=== PATIENT | male | born 1940 | race Caucasian/White ===

== ENCOUNTER → 2016-11-30 | Outpatient (CLI) | payer BC ==
[~2016-11-30] MED LIST: GLC500 PO; GLIM2TAB2 PO; LEVO50TA6 PO
[2016-11-30 12:27] LABS: HEMATOCRIT 38.9 % (42-52); MEAN CELL VOLUME 92.6 fL (80-100); MEAN CORPUSCULAR HEMOGLOBIN 31.7 pg (25-34); MEAN CORPUSCULAR HGB CONC 34.2 g/dl (32-36); MEAN PLATELET VOLUME 9.6 fL (7.4-10.4); PLATELET COUNT 227 K/uL (130-400); WHITE BLOOD COUNT 5.63 K/uL (4.8-10.8)
[2016-11-30 12:44] LABS: ALT/SGPT 46 U/L (12-78); BLOOD UREA NITROGEN 37 mg/dl (7-18); BUN/CREATININE RATIO 23.3 (10-20); CALCIUM 8.8 mg/dl (8.5-10.1); CARBON DIOXIDE 22 mmol/L (21-32); CHLORIDE 110 mmol/L (98-107); CHOLESTEROL 181 mg/dl (0-200); GLUCOSE 142 mg/dl (70-99); POTASSIUM 4.4 mmol/L (3.5-5.1); SODIUM 142 mmol/L (136-145)
[2016-11-30 12:54] LABS: ALB/GLOB RATIO 1.1 (0.9-2); ALKALINE PHOSPHATASE 87 U/L (45-117); AST/SGOT 28 U/L (15-37); CHOLESTEROL/HDL RATIO 3.1; HDL CHOLESTEROL 58 mg/dl; LDL CHOLESTEROL CALCULATED 99 mg/dl; TRIGLYCERIDES 122 mg/dl (0-150); VERY LOW DENSITY LIPOPROT CALC 24 mg/dl
[2016-11-30 13:50] LABS: ESTIMATED AVERAGE GLUCOSE 186 mg/dl; HA1C FLAG Normal (Normal)
== END | disposition home or self-care (01) ==
LOC: C.LABBFT 08:03
PROVIDERS: ATTEND Internal Medicine
DX: E03.9 Hypothyroidism, unspecified (principal); E11.65 Type 2 diabetes mellitus with hyperglycemia

== ENCOUNTER → 2017-01-24 | Outpatient (CLI) | payer BC | END | disposition home or self-care (01) | LOC: C.LABBFT 07:39 | PROVIDERS: ATTEND Urology | DX: C61 Malignant neoplasm of prostate (principal); E11.65 Type 2 diabetes mellitus with hyperglycemia ==

== ENCOUNTER → 2017-06-12 | Outpatient (CLI) | payer BC ==
[2017-06-12 12:14] LABS: BASO % 0.3 %; BASO ABS # 0.02 K/uL (0-0.2); COMPLETE YES; EOS % 2.3 %; HEMATOCRIT 39.6 % (42-52); IG% 0.3 %; LYMPH % 18.3 %; LYMPH ABS # 1.11 K/uL (1.2-3.4); MEAN CELL VOLUME 93.4 fL (80-100); MEAN CORPUSCULAR HEMOGLOBIN 31.4 pg (25-34); MEAN CORPUSCULAR HGB CONC 33.6 g/dl (32-36); MEAN PLATELET VOLUME 9.4 fL (7.4-10.4); MONO % 8.9 %; NEUT % 69.9 %; PLATELET COUNT 217 K/uL (130-400); RED BLOOD COUNT 4.24 M/uL (4.7-6.1); WHITE BLOOD COUNT 6.07 K/uL (4.8-10.8)
[2017-06-12 12:26] LABS: ALT/SGPT 31 U/L (12-78); AST/SGOT 21 U/L (15-37); BLOOD UREA NITROGEN 21 mg/dl (7-18); BUN/CREATININE RATIO 15.9 (10-20); CALCIUM 9.1 mg/dl (8.5-10.1); CARBON DIOXIDE 27 mmol/L (21-32); CHLORIDE 108 mmol/L (98-107); CHOLESTEROL 170 mg/dl (0-200); ESTIMATED AVERAGE GLUCOSE 177 mg/dl; GLUCOSE 128 mg/dl (70-99); HA1C FLAG Normal (Normal); POTASSIUM 4.7 mmol/L (3.5-5.1); SODIUM 140 mmol/L (136-145)
[2017-06-12 12:37] LABS: ALKALINE PHOSPHATASE 79 U/L (45-117); HDL CHOLESTEROL 57 mg/dl; LDL CHOLESTEROL CALCULATED 81 mg/dl; TRIGLYCERIDES 162 mg/dl (0-150); VERY LOW DENSITY LIPOPROT CALC 32 mg/dl
== END | disposition home or self-care (01) ==
LOC: C.LABBFT 08:12
PROVIDERS: ATTEND Internal Medicine
DX: E11.65 Type 2 diabetes mellitus with hyperglycemia (principal); E03.9 Hypothyroidism, unspecified

== ENCOUNTER → 2017-12-11 | Outpatient (CLI) | payer BC ==
[2017-12-11 12:33] LABS: BASO % 0.3 %; BASO ABS # 0.02 K/uL (0-0.2); EOS % 2.5 %; EOS ABS # 0.16 K/uL (0-0.5); HEMOGLOBIN 13.8 g/dL (14.0-18.0); IG# 0.02 K/uL (0.00-0.02); MEAN CELL VOLUME 94.9 fL (80-100); MEAN CORPUSCULAR HEMOGLOBIN 31.9 pg (25-34); MEAN CORPUSCULAR HGB CONC 33.7 g/dl (32-36); MEAN PLATELET VOLUME 9.6 fL (7.4-10.4); MONO % 8.1 %; MONO ABS # 0.52 K/uL (0.11-0.59); NEUT % 74.8 %; NEUT ABS # 4.83 K/uL (1.4-6.5); PLATELET COUNT 217 K/uL (130-400); RED CELL DISTRIBUTION WIDTH CV 12.4 % (11.5-14.5); RED CELL DISTRIBUTION WIDTH SD 42.8 fL (36.4-46.3); WHITE BLOOD COUNT 6.45 K/uL (4.8-10.8)
[2017-12-11 13:32] LABS: HEMOGLOBIN A1C 7.9 % (4.5-5.6)
[2017-12-11 13:51] LABS: ALBUMIN 3.9 gm/dl (3.4-5.0); ALKALINE PHOSPHATASE 87 U/L (45-117); ALT/SGPT 36 U/L (12-78); AST/SGOT 22 U/L (15-37); BLOOD UREA NITROGEN 21 mg/dl (7-18); CALCIUM 9.4 mg/dl (8.5-10.1); CARBON DIOXIDE 25 mmol/L (21-32); CREATININE 1.43 mg/dl (0.60-1.40); GLUCOSE 153 mg/dl (70-99); POTASSIUM 4.9 mmol/L (3.5-5.1); SODIUM 138 mmol/L (136-145); TOTAL PROTEIN 7.5 gm/dl (6.4-8.2)
== END | disposition home or self-care (01) ==
LOC: C.LABBFT 08:13
PROVIDERS: ATTEND Internal Medicine
DX: E03.9 Hypothyroidism, unspecified (principal); E11.65 Type 2 diabetes mellitus with hyperglycemia; D64.9 Anemia, unspecified

== ENCOUNTER → 2018-01-30 | Outpatient (CLI) | payer BC | END | disposition home or self-care (01) | LOC: C.LABBFT 12:49 | PROVIDERS: ATTEND Urology | DX: C61 Malignant neoplasm of prostate (principal) ==

== ENCOUNTER → 2018-06-13 | Outpatient (CLI) | payer BC ==
[2018-06-13 12:46] LABS: BASO % 0.3 %; BASO ABS # 0.02 K/uL (0-0.2); EOS % 3.6 %; EOS ABS # 0.22 K/uL (0-0.5); HEMATOCRIT 38.6 % (42-52); HEMOGLOBIN 13.1 g/dL (14.0-18.0); IG# 0.01 K/uL (0.00-0.02); LYMPH % 13.9 %; LYMPH ABS # 0.85 K/uL (1.2-3.4); MEAN CELL VOLUME 93.9 fL (80-100); MEAN CORPUSCULAR HEMOGLOBIN 31.9 pg (25-34); MEAN CORPUSCULAR HGB CONC 33.9 g/dl (32-36); MEAN PLATELET VOLUME 9.5 fL (7.4-10.4); MONO % 9.2 %; MONO ABS # 0.56 K/uL (0.11-0.59); NEUT % 72.8 %; NEUT ABS # 4.44 K/uL (1.4-6.5); PLATELET COUNT 212 K/uL (130-400); RED CELL DISTRIBUTION WIDTH CV 12.5 % (11.5-14.5); RED CELL DISTRIBUTION WIDTH SD 42.6 fL (36.4-46.3)
[2018-06-13 13:02] LABS: HEMOGLOBIN A1C 7.8 % (4.5-5.6)
[2018-06-13 13:26] LABS: ALBUMIN 3.8 gm/dl (3.4-5.0); ALKALINE PHOSPHATASE 81 U/L (45-117); ALT/SGPT 31 U/L (12-78); AST/SGOT 25 U/L (15-37); BLOOD UREA NITROGEN 20 mg/dl (7-18); CALCIUM 9.1 mg/dl (8.5-10.1); CARBON DIOXIDE 26 mmol/L (21-32); CHOLESTEROL 178 mg/dl (0-200); CREATININE 1.43 mg/dl (0.60-1.40); GLUCOSE 124 mg/dl (70-99); LDL CHOLESTEROL CALCULATED 96 mg/dl; POTASSIUM 4.6 mmol/L (3.5-5.1); SODIUM 139 mmol/L (136-145); TOTAL PROTEIN 7.3 gm/dl (6.4-8.2)
== END | disposition home or self-care (01) ==
LOC: C.LABBFT 08:09
PROVIDERS: ATTEND Internal Medicine
DX: E11.65 Type 2 diabetes mellitus with hyperglycemia (principal)

== ENCOUNTER 2018-12-29 12:37 | Inpatient (IN) ==
[2018-12-29] MEDS ORDERED: SODIUM CHLORIDE 0.9% 1000ML 500 ML IV ONE (12:53)
[2018-12-29 13:09] LABS: Basophils # (auto) 0.02 K/uL (0-0.2); Basophils % (auto) 0.2 %; Eosinophils # (auto) 0.08 K/uL (0-0.5); Hematocrit (blood only) 36.9 % (42-52); Hemoglobin 12.2 g/dL (14.0-18.0); Immature Granulocytes # (auto) 0.02 K/uL (0.00-0.02); Immature Granulocytes % (auto) 0.2 %; Lymphocytes # (auto) 0.99 K/uL (1.2-3.4); Lymphocytes % (auto) 12.1 %; Mean Corpuscular Hgb Conc 33.1 g/dL (32-36); Mean Corpuscular Volume 95.6 fL (80-100); Mean Platelet Volume 8.8 fL (7.4-10.4); Monocytes # (auto) 0.63 K/uL (0.11-0.59); Monocytes % (auto) 7.7 %; Neutrophils # (auto) 6.44 K/uL (1.4-6.5); Neutrophils % (auto) 78.8 %; Platelet Count 284 K/uL (130-400); RDW Coefficient of Variation 12.3 % (11.5-14.5); RDW Standard Deviation 42.6 fL (36.4-46.3); Red Blood Count 3.86 M/uL (4.7-6.1); White Blood Count 8.18 K/uL (4.8-10.8)
[2018-12-29 13:16] LABS: Appearance Urine Clear (Clear); Bilirubin Urine Negative (Negative); Blood Urine 1+ (Negative); Color Urine Yellow; Glucose Urine UA Negative (Negative); Ketones Urine Negative (Negative); Leukocyte Esterase Urine Negative (Negative); Nitrite Urine Negative (Negative); Protein Urine Negative (Negative); RBC Urine Automated 0-4 /hpf (0-4); Specific Gravity Urine 1.021 (1.000-1.030); Urobilinogen Urine Negative (Negative)
--- NOTE | 2018-12-29 13:22 | CT Scan Report ---
CT abd pelvis wo con CT DOSE: 805.58 mGycm HISTORY: Flank pain L flank pain TECHNIQUE: Multiaxial CT images of the abdomen and pelvis were performed without contrast. A dose lo wering technique was utilized adhering to the principles of ALARA. COMPARISON STUDY: 01/31/2013 FINDINGS: Lung bases are considered clear. The nodular density left lung base is unchanged. There is a small calcified granuloma also unchanged at the right base. Liver spleen and pancreas appear unremarkable. Bilateral renal nodules and cysts are stable. There is mild left hydronephrosis. There is a 3.5 mm ob structing proximal left ureteral calculus. Bowel pattern is nonobstructive. The appendix is normal. B ladder is midline. There is a focal bowel containing left single hernia unchanged in the prior study. This is a nonobstructive finding. IMPRESSION: 1. 3.5 mm obstructing calculus proximal left ureter. 2. Mild left hydronephrosis. 3. Multiple bilateral renal cysts and nodules are considered stable from the prior study. 4. Unchanged bowel containing left inguinal hernia. This is nonobstructing. 5. Unchanged left basilar nodule. The above report was generated using voice recognition software. It may contain grammatical, syntax or spelling errors. Electronically signed by: Silvestre Reyes M.D. 12/29/2018 1:20 PM
[2018-12-29 13:26] LABS: Creatinine Clr Calc Pharmacy 19.9 ml/min; Est GFR (Non-African American) 18.1; Potassium 4.7 mmol/L (3.5-5.1)
[2018-12-29] MEDS ORDERED: KETOROLAC TROMETHAMINE 15 MG/ML VIAL IV STA (13:41)
[2018-12-29] MEDS ORDERED: SODIUM CHLORIDE 0.9% 1000ML 1,000 ML IV SCH (13:45)
--- NOTE | 2018-12-29 13:48 | History & Physical Report ---
Date of Service December 29, 2018 Assessment & Plan (1) Kidney stone: (2) KEE (acute kidney injury): - Admit to med surg - Continue aggressive hydration with NSS 125 ml/hr - Start on flomax, pain management with IV morphine prn - Urology consulted, Dr. Callejas - ER discussed with their team who recommend conservative treatment for now. No acute needs for stent as pt is afebrile, no WBC. No need for antibiotic therapy at this time. Follow urine culture. - Mild hydronephrosis as per CT. - Cr. acutely bumped, follow with am PRP (3) DM II (diabetes mellitus, type II), controlled: - Continue januvia. Holding metformin and glimipiride. - ISS with accuchecks ACHS - Last A1c= 7.9 on 12/20/18 - HH/diabetic diet (4) History of prostate cancer: - Hx of such 10 years ago, stable (5) Hypothyroidism: - Continue levothyroxine 100 mg daily (6) HLD (hyperlipidemia): - Not on statin therapy. No need to check lipids at this time. (7) Anemia: - Hx of such, Hgb and Hct 12.2/36.9 respectively. (8) Hydronephrosis: (9) DVT prophylaxis: teds, scds, no chemical prophylaxis at this time due to hematuria 2 days ago and possible need for stent placement. History of Present Illness Chief Complaint: L flank pain Primary Care Provider: Waqar Akins MD This is a 78 yo M with PMHX of DM II on oral agents, HLD, hx of prostate cancer 10 years ago, osteoporosis and nephrolithiasis who presents with acute onset of left sided flank pain x 2 days. Pt notes about 2 night ago he developed sharp constant pain, nausea with dry heaves, and passed a small kidney stone (which he brought with him into the ER.) Since then he still has had pain unrelieved with tylenol at home. His urine has been clear, no hematuria. Pt denies fever, chills or sweats. He reports hx of requiring surgery and lithotripsy for nephrolithiasis previously. Pt received pain medication in the ER and reports complete relief of pain currently. Cr. is acutely bumped at 3.16. CT scan demonstrates a 3.5 mm obstructing calculus proximal left ureter and mild left hydronephrosis. Allergies Allergy/AdvReac Type Severity Reaction Status Date / Time No Known Allergies Allergy Unknown Verified 12/29/18 13:55 Home Medications Home Medications Medication Instructions Recorded Confirmed Type glimepiride 4 mg PO BID 12/29/18 12/29/18 History levothyroxine 100 mg PO DAILY 12/29/18 12/29/18 History metformin 1,000 mg PO HS 12/29/18 12/29/18 History metformin 1,000 mg PO QAM 12/29/18 12/29/18 History metformin 500 mg PO QDL 12/29/18 12/29/18 History sitagliptin [Januvia] 100 mg PO DAILY 12/29/18 12/29/18 History Past Med/Surg History Medical History Hydronephrosis Anemia Osteopenia HLD (hyperlipidemia) Hypothyroidism History of prostate cancer DM II (diabetes mellitus, type II), controlled KEE (acute kidney injury) (Acute) Kidney stone (Acute) Kidney stones (Acute) Surgical History H/O radical retropubic prostatectomy Family History Other CHF (congestive heart failure) Cardiac pacemaker in situ DM II (diabetes mellitus, type II), controlled Nephrolithiasis No pertinent family history Prostate cancer Social History Preferred Language: Yakut Communication Ability: Effective Senior Administrative Support Required: No Beliefs That Will Affect Care: None Current Living Situation: Spouse Other Information That Helps Us Care for You: No Feels Safe at Home: Yes Safety Concerns: Feels Safe At This Time Smoking Status: Never smoker Hx Alcohol Use: No Hx Substance Use: No Review of Systems Constitutional: No fever, sweats or chills Eyes: No diplopia, no worsening or blurred vision ENT: normal hearing, no trouble swallowing Respiratory: No cough, sputum, dyspnea at rest or on exertion Cardiovascular: No chest pain, tightness or palpitations Abdomen: No pain, nausea, vomiting, diarrhea or constipation : As per HPI. Musculoskeletal: No joint pain, calf pain, swelling Neurologic: No weakness, numbness/tingling, or balance problems Psychiatric: No anxiety or depression Skin: No rash or itch Physical Exam Vital Signs (Past 24 Hours): Last Vital Signs Temp 36.4 C L 12/29/18 12:39 Pulse 94 H 12/29/18 12:39 Resp 16 12/29/18 12:39 BP 136/89 12/29/18 12:39 Pulse Ox 97 12/29/18 12:39 Physical Exam: General: awake, alert, no apparent distress Head: Normocephalic, atraumatic ENT: PERRL, EOMI, no pharyngeal exudate, mucous membranes moist Chest: Clear to auscultation, on room air, no adventitious breath sounds Cardiac: Regular rate and rhythm, no murmur, no JVD, normal peripheral pulses, good capillary refill Abdominal: NABS x 4 quadrants, soft, nontender to palpation, no CVA tenderness, no rebound, guarding or tenderness Extremities: Normal inspection, no peripheral edema or erythema, calfs nontender to palpation Psych: Normal mood and affect Neuro: AAO x 3, strength intact bilaterally and related 5/5, no motor deficits, speech is clear, no peripheral sensory deficits Results & Data Diagnostic Findings CT abd pelvis wo con CT DOSE: 805.58 mGycm HISTORY: Flank pain L flank pain TECHNIQUE: Multiaxial CT images of the abdomen and pelvis were performed without contrast. A dose lowering technique was utilized adhering to the principles of ALARA. COMPARISON STUDY: 01/31/2013 FINDINGS: Lung bases are considered clear. The nodular density left lung base is unchanged. There is a small calcified granuloma also unchanged at the right base. Liver spleen and pancreas appear unremarkable. Bilateral renal nodules and cysts are stable. There is mild left hydronephrosis. There is a 3.5 mm obstructing proximal left ureteral calculus. Bowel pattern is nonobstructive. The appendix is normal. Bladder is midline. There is a focal bowel containing left single hernia unchanged in the prior study. This is a nonobstructive finding. IMPRESSION: 1. 3.5 mm obstructing calculus proximal left ureter. 2. Mild left hydronephrosis. 3. Multiple bilateral renal cysts and nodules are considered stable from the prior study. 4. Unchanged bowel containing left inguinal hernia. This is nonobstructing. 5. Unchanged left basilar nodule. Code Status & VTE Plan Code Status Full Supervising Physician Co-Signing Physician Notes Patient seen and examined, discussed with physician press assistant about patient condition and care plan, agree current care plan, Subjective: mild left flank pain, no n/v, no f/c, Review of Systems Constitutional: negative weakness, or fatigue Respiratory: no cough, sputum, wheezing, or dyspnea on exertion Cardiac: No chest pain, No orthopnea, No PND, No claudication, No p alpitations, Abdomen: No pain, No nausea, No vomiting, No diarrhea, No constipation, No GI bleeding Musculoskeletal: No joint pain, No muscle pain, No swelling, : No dysuria, No urinary frequency, No incontinence, No hematuria Neurologic: No paralysis, No weakness, No numbness/tingling, No vertigo, Psychiatric: No depression symptoms, No anhedonism, No anxiety, No insomnia, No substance abuse Heme: No abnormal bleeding/bruising, Skin: No rash, No itch, No new/changing skin lesions, No color change, No bleeding negative Objective: General Appearance: WD/WN, no apparent distress, Eyes: normal inspection, PERRL, EOMI, sclerae normal ENT: normal ENT inspection, hearing grossly normal, pharynx normal Neck: supple, no adenopathy, thyroid normal, no JVD, no carotid bruits, trachea midline Respiratory/Chest: chest non-tender, normal breath sounds, no respiratory distress, no accessory muscle use, breath sounds, rales, wheezing Cardiovascular: regular rate, rhythm, no JVD, no murmur Abdomen: normal bowel sounds, non tender, soft, no organomegaly, Extremities: normal range of motion, non-tender, normal inspection, no pedal edema, no calf tenderness, normal capillary refill, pelvis stable, joint has no limited range of motion, capillary refill is normal, no cyanosis clubbing Neurologic/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
--- NOTE | 2018-12-29 14:07 | Emergency Department Note ---
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 He states his pain is from a kidney stone as he recently passed one and brought it to the ED with him. He was holding it and it was approximately 2 mm. He notes even after passing the stone, he still has flank pain which is worse when he lies down. Pt denies any other complaints. He reports he has a history of kidney stones and this feels similar. The patient also has a history of lithotripsy. Home Medications Home Medications Medication Instructions Recorded Confirmed Type glimepiride 4 mg PO BID 12/29/18 12/29/18 History levothyroxine 100 mg PO DAILY 12/29/18 12/29/18 History metformin 1,000 mg PO HS 12/29/18 12/29/18 History metformin 1,000 mg PO QAM 12/29/18 12/29/18 History metformin 500 mg PO QDL 12/29/18 12/29/18 History sitagliptin [Januvia] 100 mg PO DAILY 12/29/18 12/29/18 History Allergies Allergy/AdvReac Type Severity Reaction Status Date / Time No Known Allergies Allergy Unknown Verified 12/29/18 13:55 Past Med/Surg History Medical History Hydronephrosis Anemia Osteopenia HLD (hyperlipidemia) Hypothyroidism History of prostate cancer DM II (diabetes mellitus, type II), controlled KEE (acute kidney injury) (Acute) Kidney stone (Acute) Kidney stones (Acute) Surgical History H/O radical retropubic prostatectomy Family History Other CHF (congestive heart failure) Cardiac pacemaker in situ DM II (diabetes mellitus, type II), controlled Nephrolithiasis No pertinent family history Prostate cancer Social History Preferred Language: Sinhala Feels Safe at Home: Yes Smoking Status: Never smoker Review of Systems See HPI for pertinent positives & negatives. and A total of 10 systems reviewed and were otherwise negative Physical Exam Vital Signs Vital Signs - 24 hr 12/29/18 12:39 12/29/18 13:52 Temperature 36.4 C L Temperature Source Oral Sepsis Recent Fever Within 48 Hours No Sepsis New/Unexplained Change in Mental Status No Sepsis Action Taken by Nursing No Action Required Pulse Rate 94 H Pulse Rate [Finger] 89 Pulse Rhythm [Finger] Regular Respiratory Rate 16 17 Respiratory Effort / Characteristics Non-Labored Non-Labored Spontaneous Respiratory Depth Normal Normal Respiratory Pattern Regular Blood Pressure 136/89 Blood Pressure [Left Arm] 138/90 Blood Pressure Mean 104 Blood Pressure Mean [Left Arm] 106 Pulse Oximetry 97 96 Oxygen Delivery Method Room Air Room Air GENERAL: He is oriented to person, place, and time. He appears well-developed and well-nourished. He does not appear distressed. ____ HENT: Exam performed. Head: Normocephalic and atraumatic. Right Ear: External ear normal. No mastoid tenderness. Left Ear: External ear normal. No mastoid tenderness. Mouth/Throat: The oropharynx is clear and moist. No trismus in the jaw. No dental abscesses or uvula swelling. No oropharyngeal exudate or tonsillar abscesses. ____ EYES: Conjunctivae and EOM are normal. Pupils are equal, round, and reactive to light. Right eye exhibits no discharge. Left eye exhibits no discharge. No scleral icterus. ____ NECK: Normal range of motion. Neck supple. No JVD present. No spinous process tenderness present. No carotid bruit present. No rigidity. No tracheal deviation and normal range of motion present. No Brudzinski's sign and no Kernig's sign noted. ____ CV: Normal rate, regular rhythm, normal heart sounds and intact distal pulses. There is no peripheral edema. Palpable radial pulses bue. ____ PULM/CHEST: Effort normal and breath sounds normal. No respiratory distress. No stridor. He has no wheezes. He has no rales. Chest Wall: He exhibits no tenderness. ____ ABD: The abdomen is soft. Bowel sounds are normal. He has no distension. No mass is present. There is no tenderness. There is no rebound, no guarding, no Benitez's sign and no tenderness at McBurney's point. Rovsig negative MUSC/SKEL: Normal range of motion. There is no peripheral edema or deformity. Left sided CVA tenderness. LYMPH: No cervical adenopathy. ____ NEURO: He is alert and oriented to person, place, and time. He has normal strength. No cranial nerve deficit or sensory deficit. Coordination and gait normal. GCS eye subscore is 4. GCS verbal subscore is 5. GCS motor subscore is 6. cerbellar tests wnl. ____ SKIN: Skin is warm and dry. He is not diaphoretic. ____ PSYCH: He has a normal mood and affect. His behavior is normal. Judgment and thought content normal. ____ Course 1244: Past medical records reviewed. The patient was evaluated in room A10, and a complete history and physical examination were performed. 1335: Vital signs stable. He is still reporting pain. CT shows 3.5 mm left- sided kidney stone causing hydronephrosis. Analgesia given in the ED. Labs show KEE. Creatinine of 3.16, higher than past levels of 1.43 Discussed with urology who recommends further evaluation. The patient will be further evaluated. I reviewed the patient's case with Dr. Callejas, Urology. He recommends further evaluation. I reviewed the patient's case with Flora Albarran PA-C [facility] Hospitalist. Dr. Leggett [facility] Hospitalist will evaluate the patient for further management. Consultations Consultation #1: I reviewed the patient's case with Dr. Callejas, Urology. He recommends further evaluation. Time: 13:35 Consultation #2: I reviewed the patient's case with Flora Albarran PA-C [facility] Hospitalist. Dr. Leggett [facility] Hospitalist will evaluate the patient for further management. Time: 13:43 Administered Medications Sodium Chloride (Nss 1000ml) 1,000 mls @ 100 mls/hr IV .Q10H COBY Stop: 01/28/19 13:44 Last Admin: 12/29/18 13:47 Dose: 100 mls/hr Documented by: [id number] Discontinued Medications Sodium Chloride (Nss 1000ml) 500 mls @ 999 mls/hr IV .Q31M ONE Stop: 12/29/18 13:23 Last Infusion: 12/29/18 13:32 Dose: 0 mls/hr Documented by: [id number] Admin: 12/29/18 13:01 Dose: 999 mls/hr Documented by: [id number] Ketorolac Tromethamine (Toradol) 15 mg IV NOW STA Stop: 12/29/18 13:42 Last Admin: 12/29/18 13:46 Dose: 15 mg Documented by: [id number] Medical Decision Making Medical Records Attestation: I reviewed the patient's medical records. Home Medications Current Medication List: was personally reviewed by me Laboratory Data Attestation: I reviewed the patient's lab results. Result diagrams: 12/29/18 12:55 12/29/18 12:55 Lab Results 12/29/18 12/29/18 12/29/18 Range/Units 12:40 12:55 12:55 WBC 8.18 (4.8-10.8) K/uL RBC 3.86 L (4.7-6.1) M/uL Hgb 12.2 L (14.0-18.0) g/dL Hct 36.9 L (42-52) % MCV 95.6 (80-100) fL MCH 31.6 (25-34) pg MCHC 33.1 (32-36) g/dL RDW Std Deviation 42.6 (36.4-46.3) fL RDW Coeff of Eric 12.3 (11.5-14.5) % Plt Count 284 (130-400) K/uL MPV 8.8 (7.4-10.4) fL Immature Gran % (Auto) 0.2 % Neut % (Auto) 78.8 % Lymph % (Auto) 12.1 % Callaway % (Auto) 7.7 % Eos % (Auto) 1.0 % Baso % (Auto) 0.2 % Immature Gran # (Auto) 0.02 (0.00-0.02) K/uL Neut # (Auto) 6.44 (1.4-6.5) K/uL Lymph # (Auto) 0.99 L (1.2-3.4) K/uL Callaway # (Auto) 0.63 H (0.11-0.59) K/uL Eos # (Auto) 0.08 (0-0.5) K/uL Baso # (Auto) 0.02 (0-0.2) K/uL Sodium 137 (136-145) mmol/L Potassium 4.7 (3.5-5.1) mmol/L Chloride 107 (98-107) mmol/L Carbon Dioxide 23 (21-32) mmol/L Anion Gap 8.0 (3-11) BUN 48 H (7-18) mg/dl Creatinine 3.16 H (0.6-1.4) mg/dl Est Cr Clr Drug Dosing 19.9 ml/min Est GFR ( Amer) 21.0 Est GFR (Non-Af Amer) 18.1 BUN/Creatinine Ratio 15.0 (10-20) Glucose 91 (70-99) mg/dl Calcium 9.0 (8.5-10.1) mg/dl Urine Color Yellow Urine Appearance Clear (Clear) Urine pH 5.0 (4.5-7.5) Ur Specific Remlap 1.021 (1.000-1.030) Urine Protein Negative (Negative) Urine Glucose (UA) Negative (Negative) Urine Ketones Negative (Negative) Urine Blood 1+ H (Negative) Urine Nitrite Negative (Negative) Urine Bilirubin Negative (Negative) Urine Urobilinogen Negative (Negative) Ur Leukocyte Esterase Negative (Negative) Urine WBC (Auto) 1-5 (0-5) /hpf Urine RBC (Auto) 0-4 (0-4) /hpf U Hyaline Cast (Auto) 1-5 (0-5) /lpf U Epithel Cells (Auto) 5-10 H (0-5) /lpf Urine Bacteria (Auto) Negative (Negative) Imaging Data Radiologist's Impression: Radiology results as stated below per my review and the radiologist's interpretation: CT abd pelvis wo con CT DOSE: 805.58 mGycm HISTORY: Flank pain L flank pain TECHNIQUE: Multiaxial CT images of the abdomen and pelvis were performed without contrast. A dose lowering technique was utilized adhering to the principles of ALARA. COMPARISON STUDY: 01/31/2013 FINDINGS: Lung bases are considered clear. The nodular density left lung base is unchanged. There is a small calcified granuloma also unchanged at the right base. Liver spleen and pancreas appear unremarkable. Bilateral renal nodules and cysts are stable. There is mild left hydronephrosis. There is a 3.5 mm obstructing proximal left ureteral calculus. Bowel pattern is nonobstructive. The appendix is normal. Bladder is midline. There is a focal bowel containing left single hernia unchanged in the prior study. This is a nonobstructive finding. IMPRESSION: 1. 3.5 mm obstructing calculus proximal left ureter. 2. Mild left hydronephrosis. 3. Multiple bilateral renal cysts and nodules are considered stable from the prior study. 4. Unchanged bowel containing left inguinal hernia. This is nonobstructing. 5. Unchanged left basilar nodule. The above report was generated using voice recognition software. It may contain grammatical, syntax or spelling errors. Electronically signed by: Silvestre Reyes M.D. 12/29/2018 1:20 PM Blood Pressure Blood Pressure Findings: Normal blood pressure Blood Pressure Disposition: did not require urgent referral MDM Narrative Vital signs stable. He is still reporting pain. CT shows 3.5 mm left-sided kidney stone causing hydronephrosis. Analgesia given in the ED. Labs show KEE. Creatinine of 3.16, higher than past levels of 1.43 Discussed with urology who recommends further evaluation. The patient will be further evaluated. I reviewed the patient's case with Dr. Callejas, Urology. He recommends further evaluation. I reviewed the patient's case with Flora Albarran PA-C [facility] Hospitalist. Dr. Leggett, [facility] Hospitalist will evaluate the patient for further management. Impression & Plan KEE (acute kidney injury), Kidney stone Discharge Plan Visit Data Chief Complaint: Flank Pain Stated Complaint: POSSIBLE KIDNEY STONES ED Provider: Sukhwinder Gallagher Discharge Problem: KEE (acute kidney injury), Kidney stone Patient Disposition: Being Evaluated by Hospitalist Forms Stand Alone Forms: My [facility] Prescriptions Prescriptions: No Action metformin 500 mg tablet 500 mg PO QDL RF: 0 metformin 500 mg tablet 1,000 mg PO HS RF: 0 metformin 500 mg tablet 1,000 mg PO QAM RF: 0 levothyroxine 100 mcg tablet 100 mg PO DAILY RF: 0 glimepiride 4 mg tablet 4 mg PO BID RF: 0 Januvia 100 mg tablet 100 mg PO DAILY RF: 0 Referrals Referrals: Waqar Akins III, MD [Primary Care Provider] - The scribe's documentation has been prepared under my direction and personally reviewed by me in its entirety. I confirm that the note above accurately reflects all work, treatment, procedures, and medical decision making performed by me.
[2018-12-29 14:15] LABS: Uric Acid Crystals Urine Present (None Prsent)
[2018-12-29 14:16] LABS: Bacteria Urine Automated 1+ (Negative)
[2018-12-29] MEDS ORDERED: ACETAMINOPHEN 325 MG TAB PO PRN (15:13)
[2018-12-29] MEDS ORDERED: DEXTROSE 50% 50 ML SYRINGE IV PRN (15:13)
[2018-12-29] MEDS ORDERED: GLUCOSE 10 TABS/TUBE PO PRN (15:13)
[2018-12-29] MEDS ORDERED: GLUCAGON FOR INJ 1 MG VIAL SQ PRN (15:13)
[2018-12-29] MEDS ORDERED: GLUCOSE 40% GEL 15 GM TUBE PO PRN (15:13)
[2018-12-29] MEDS ORDERED: ONDANSETRON INJ 2 MG/ML 2 ML VIAL IV PRN (15:13)
[2018-12-29] MEDS ORDERED: MoRPHine SULFATE 4 MG/ML 1 ML CARP\\VIAL IV PRN (15:13)
[2018-12-29] MEDS ORDERED: CARBOHYDRATES FOR HYPOGLYCEMIA PO PRN (15:13)
[2018-12-29] MEDS: SODIUM CHLORIDE 0.9% 1000ML 1,000 ML IV SCH ×2 (16:10→23:41)
[2018-12-29] MEDS: INSULIN ASPART 100 UNITS/ML 3 ML PEN SC SCH ×2 (18:26→21:20)
[2018-12-29] MEDS ORDERED: PHARMACY GLYCEMIC MGMT CONSULT PRN (20:15)
--- NOTE | 2018-12-29 20:27 | Pharmacy Report ---
Glycemic Control Consultation - Date of Service December 29, 2018 - Scope Scope: Glycemic Pharmacist consulted for glycemic control and to write orders per [facility] inpatient glycemic control protocol - Objective Weight: 75.1 kg Accuchecks BSG (last 24hrs): 12/29/18 12/29/18 12/29/18 12:55 16:59 17:29 Glucose 91 POC Glucose 52 L* 86 Laboratory Data (last 24hrs): 12/29/18 12:55 Potassium 4.7 Carbon Dioxide 23 Anion Gap 8.0 Creatinine 3.16 H Est Cr Clr Drug Dosing 19.9 HbA1c: 7.9% on 12/20/18 - Recent Pertinent Medications Outpatient Anti-diabetic Regimen: * Metformin * Januvia * Amaryl - Assessment & Plan Assessment & Plan: ASSESSMENT: * 78yo T2M male with adequate outpatient diabetes control based on age/commodities. Goal A1c is likely <8 % * Pt with hypoglycemia on admission secondary to KEE and sulfonylurea. Sulfonylureas lead to LONG STANDING hypo with KEE. Basal insulin (and probably bolus insulin ) likely not needed today. Will resume low dose basal bolus insulin regimen when BSG 140-180mg/dl. PLAN FOR INPATIENT GLYCEMIC CONTROL: * Holding outpatient oral diabetes medications * Basal insulin * Hold for now; will start when BSG ~ 140-180mg/dl without correction for low * Bolus insulin * NovoLog per scale ACHS or Q6hrs while NPO * Goal Range: Low 110 mg/dL - High 140 mg/dL * Correction Factor: 30 mg/dL/unit * Nutritional / Prandial insulin per carb ratio of 1 unit per -- grams CHO consumed * Please note that the plan above was derived based on current level of insulin resistance and hospital stress. These recommendations are appropriate for inpatient admission only. Plan of care upon discharge will need to be reassessed to avoid potential outpatient hypo/hyperglycemia. Thank you.
[2018-12-30] MEDS: LEVOTHYROXINE SODIUM 100 MCG TABLET PO SCH (05:22)
[2018-12-30 06:07] LABS: Hematocrit (blood only) 31.6 % (42-52); Hemoglobin 10.6 g/dL (14.0-18.0); Mean Corpuscular Hgb Conc 33.5 g/dL (32-36); Mean Corpuscular Volume 95.5 fL (80-100); Mean Platelet Volume 8.9 fL (7.4-10.4); Platelet Count 217 K/uL (130-400); RDW Coefficient of Variation 12.2 % (11.5-14.5); RDW Standard Deviation 42.4 fL (36.4-46.3); Red Blood Count 3.31 M/uL (4.7-6.1); White Blood Count 5.75 K/uL (4.8-10.8)
[2018-12-30 07:05] LABS: Albumin Level 2.7 gm/dl (3.4-5.0); BUN Creatinine Ratio 14.6 (10-20); Creatinine Clr Calc Pharmacy 21.1 ml/min; Est GFR (African American) 22.5; Est GFR (Non-African American) 19.4; Magnesium 1.5 mg/dl (1.8-2.4); Potassium 4.6 mmol/L (3.5-5.1)
[2018-12-30 07:08] LABS: Albumin Globulin Ratio 0.7 (0.9-2); Bilirubin,Total 0.3 mg/dl (0.2-1); Globulin 3.8 gm/dl (2.5-4.0); Phosphorus 3.3 mg/dl (2.5-4.9); Total Protein 6.5 gm/dl (6.4-8.2)
[2018-12-30] MEDS: SODIUM CHLORIDE 0.9% 1000ML 1,000 ML IV SCH ×3 (07:12→22:24)
[2018-12-30] MEDS: TAMSULOSIN HCL 0.4 MG CAP PO SCH (08:36)
[2018-12-30] MEDS ORDERED: SITAGLIPTIN PHOSPHATE 100 MG TAB PO SCH (09:00)
[2018-12-30] MEDS: INSULIN ASPART 100 UNITS/ML 3 ML PEN SC SCH ×4 (09:12→22:20)
[2018-12-30] MEDS: MAGNESIUM SULFATE / D5W 1 GM/100 ML BAG IV SCH ×2 (13:45→14:43)
--- NOTE | 2018-12-30 14:39 | Urology Consultation ---
Date of Consultation December 30, 2018 Assessment & Plan (1) Kidney stone: (2) KEE (acute kidney injury): Patient doing better. Cr now at 2.9 Less pain. Less nausea. Improving. No stone passage obvious/no clots/no hematuria. Discussed options. Tolerating diet. No major other issues. Will plan to monitor. Check KUB in morning. may need stent but monitor for now. Discussed passage and time. History of Present Illness Attending Physician: Segundo Shaikh History of Present Illness Patient with significant flank pain to groin in waves with discomfort and pain and intermittent urgency. Patient found to have stone.s Sign KEE on ckd. Improved overnight. Pain improve. No bleeding. No stone passage but overall feeling better. KEE improved with hydration. Allergies Allergy/AdvReac Type Severity Reaction Status Date / Time No Known Allergies Allergy Unknown Verified 12/29/18 13:55 Home Medications Home Medications Medication Instructions Recorded Confirmed Type glimepiride 4 mg PO BID 12/29/18 12/29/18 History levothyroxine 100 mg PO DAILY 12/29/18 12/29/18 History metformin 1,000 mg PO HS 12/29/18 12/29/18 History metformin 1,000 mg PO QAM 12/29/18 12/29/18 History metformin 500 mg PO QDL 12/29/18 12/29/18 History sitagliptin [Januvia] 100 mg PO DAILY 12/29/18 12/29/18 History Patient History Medical History Hydronephrosis Anemia Osteopenia HLD (hyperlipidemia) Hypothyroidism History of prostate cancer DM II (diabetes mellitus, type II), controlled KEE (acute kidney injury) (Acute) Kidney stone (Acute) Kidney stones (Acute) Surgical History H/O radical retropubic prostatectomy Family History Other CHF (congestive heart failure) Cardiac pacemaker in situ DM II (diabetes mellitus, type II), controlled Nephrolithiasis No pertinent family history Prostate cancer Social History Communication Ability: Effective Beliefs That Will Affect Care: None Current Living Situation: Spouse Other Information That Helps Us Care for You: No Feels Safe at Home: Yes Safety Concerns: Feels Safe At This Time Smoking Status: Never smoker Hx Alcohol Use: No Hx Substance Use: No Review of Systems All reviewed. See HPI Physical Exam Vital Signs (Past 24 Hours): Last Vital Signs Temp 37.1 C 12/30/18 07:16 Pulse 68 12/30/18 07:16 Resp 18 12/30/18 07:16 BP 161/76 H 12/30/18 07:16 Pulse Ox 94 12/30/18 07:16 Constitutional: WD/WN, vitals as above well developed and well nourished; not ill appearing and not intoxicated appearing Eyes: eyes not dysmorphic and no conjunctival abnormality ENMT: Ears: + hearing impairment; no external ear abnormality Nose: no external nose abnormality Mouth: no lip abnormality Neck: trachea midline; no tracheal deviation Respiratory: normal respiratory effort; no respiratory distress, no labored breathing and does not use accessory muscles Cardiovascular: Rate/Rhythm: not tachycardic Gastrointestinal (Abdomen): Inspection/Auscultation: abdomen normal to inspection Percussion/Palpation: abdomen nontender and no guarding Musculoskeletal: Head/Neck/Chest: normocephalic and head atraumatic Extremities: extremities normal to inspection Skin: no rashes and no lesions Neurologic: CN's II-XI intact bilaterally Speech / Cognition: normal speech Psychiatric: Mood: no depressed mood Genitourinary: no CVA tenderness Lymphatic: no lymphadenopathy
--- NOTE | 2018-12-30 16:03 | Pharmacy Report ---
Pharmacy Glycemic Short Note 2 - Date of Service December 30, 2018 - Glycemic Short BSG Results (Last 24 hours): 12/29/18 12/29/18 12/29/18 16:59 17:29 20:32 Glucose POC Glucose 52 L* 86 159 H 12/30/18 12/30/18 12/30/18 05:27 08:14 08:15 Glucose 56 L POC Glucose 66 L* 77 12/30/18 12:01 Glucose POC Glucose 188 H OUTPATIENT ANTIDIABETIC REGIMEN: * Metformin * Januvia * Amaryl ASSESSMENT: * 78yo T2M male with adequate outpatient diabetes control based on age/commodities. Goal A1c is likely <8 % * Pt with hypoglycemia on admission secondary to KEE and sulfonylurea. Sulfon ylureas lead to LONG STANDING hypo with KEE. Scr trending downward. * Last episode of hypoglycemia was 3/3 AM; 66 mg/dL. BSG improved to 188 mg/dL by lunchtime. * Will start a conservative dose of basal insulin to be given at bedtime if BSG remains 180 mg/dL or greater. PLAN FOR INPATIENT GLYCEMIC CONTROL: * Holding outpatient oral diabetes medications * Basal insulin * Lantus per scale at HS * 0 units for BSG < 180 mg/dL * 10 units for BSG 180 mg/dL or more * Bolus insulin - add carb coverage * NovoLog per scale ACHS or Q6hrs while NPO * Goal Range: Low 110 mg/dL - High 140 mg/dL * Correction Factor: 30 mg/dL/unit * Nutritional / Prandial insulin per carb ratio of 1 unit per 10 grams CHO consumed thank you
[2018-12-30] MEDS: INSULIN GLARGINE SOLOSTAR 100 UNITS/ML 3 ML PEN SC SCH (18:09)
--- NOTE | 2018-12-30 18:37 | Hospitalist Progress Note ---
Date of Service December 30, 2018 Assessment & Plan (1) Kidney stone: - CT A/P showed 3.5 mm obstructing calculus of proximal left ureter with mild left hydronephrosis. - Urology consulted, appreciate input. - IV fluids at 125 cc/hr. - Flomax 0.4 mg qAM. - Strain all urine. - KUB in the AM to evaluate for improvement. (2) Hydronephrosis: - Noted on CT of A/P. (3) KEE (acute kidney injury): - Creatinine increased to 3.16 on admission in setting of kidney stone/obstruction; baseline ~1.4 - Now trending down, was 2.98 on morning labs. - IV fluids at 125 cc/hr. (4) DM II (diabetes mellitus, type II), controlled: - Hold home Januvia, Metformin and Glimepiride. - SSI with gluc checks. - Last A1C was 7.9 on 12/20/18. (5) History of prostate cancer: - Hx of such 10 years ago, stable. (6) Hypothyroidism: - Continue levothyroxine 100 mg daily. - TSH was 4.7 in Nov 2018; will need to f/u with PCP to discuss. (7) HLD (hyperlipidemia): - Not on statin therapy. (8) Anemia: - Hgb trending down, was 10.6. Likely related to IV fluids. - Monitor qAM. (9) Hypomagnesemia: - Mag level 1.5 - ordered mag 2 gm IV. (10) DVT prophylaxis: - SCDS; hold pharmacologic ppx due to recent hematuria. Dispo: Med/surg for kidney stone, pain control. Supervising Physician Co-Signing Physician Notes Attending Attestation - Chart reviewed in detail, care plan d/w SERA Funk. I agree w/ the jones components of her documentation. Pt with obstructing renal stone causing acute kidney injury in setting of CKD stage 3. No evidence of complicating UTI or sepsis. Urology following. Still hoping for spontaneous passage. Cont gentle fluids, flomax, straining of urine, etc. Segundo Shaikh MD Subjective Pt. has ongoing left flank pain, slightly improved. Has abd gas today, last BM was this morning. Denies hematuria, dysuria. Did not pass stone while inpt, urology following. Review of Systems All systems reviewed & are unremarkable except as noted in HPI & below Constitutional: no fever, no chills, no fatigue, no weakness and no anorexia Respiratory: no cough and no dyspnea Cardiovascular: no chest pain, no palpitations and no edema Gastrointestinal: + excessive flatulence; no abdominal pain, no nausea, no vomiting, no constipation and no diarrhea/loose stools Genitourinary (Male): + flank pain; no dysuria, no difficulty urinating and no hematuria Musculoskeletal: no joint pain Allergy / Immunological: no rash Physical Exam Vital Signs (Past 24 Hours): Last Vital Signs Temp 37.0 C 12/30/18 14:58 Pulse 76 12/30/18 14:58 Resp 22 12/30/18 14:58 BP 150/77 H 12/30/18 14:58 Pulse Ox 98 12/30/18 14:58 Physical Exam: General: Resting comfortably in no apparent distress; A&OX3 HEENT: NC/AT; PERRLA with EOMI; [place] conjunctiva, MMM. Neck: Supple and nontender; No JVD Cardiac: RRR w/o murmurs, gallops or rubs Lungs: CTA bilaterally; No rhonchi, wheezing, or rales Abdomen: Bowel normoactive X 4; Nontender to palpation Extremities: Warm. No edema present Neuro: No focal weakness Skin: No rash Results & Data Laboratory Results 12/30/18 12/30/18 12/30/18 Range/Units 16:52 12:01 08:15 WBC (4.8-10.8) K/uL RBC (4.7-6.1) M/uL Hgb (14.0-18.0) g/dL Hct (42-52) % MCV (80-100) fL MCH (25-34) pg MCHC (32-36) g/dL RDW Std Deviation (36.4-46.3) fL RDW Coeff of Eric (11.5-14.5) % Plt Count (130-400) K/uL MPV (7.4-10.4) fL Sodium (136-145) mmol/L Potassium (3.5-5.1) mmol/L Chloride (98-107) mmol/L Carbon Dioxide (21-32) mmol/L Anion Gap (3-11) BUN (7-18) mg/dl Creatinine (0.6-1.4) mg/dl Est Cr Clr Drug Dosing ml/min Est GFR ( Amer) Est GFR (Non-Af Amer) BUN/Creatinine Ratio (10-20) Glucose (70-99) mg/dl POC Glucose 76 188 H 77 (70-99) Estimat Average Glucose Hemoglobin A1c Calcium (8.5-10.1) mg/dl Phosphorus (2.5-4.9) mg/dl Magnesium (1.8-2.4) mg/dl Total Bilirubin (0.2-1) mg/dl AST (15-37) U/L ALT (12-78) U/L Alkaline Phosphatase (45-117) U/L Total Protein (6.4-8.2) gm/dl Albumin (3.4-5.0) gm/dl Globulin (2.5-4.0) gm/dl Albumin/Globulin Ratio (0.9-2) 12/30/18 12/30/18 12/30/18 Range/Units 08:14 05:27 05:27 WBC 5.75 (4.8-10.8) K/uL RBC 3.31 L (4.7-6.1) M/uL Hgb 10.6 L (14.0-18.0) g/dL Hct 31.6 L (42-52) % MCV 95.5 (80-100) fL MCH 32.0 (25-34) pg MCHC 33.5 (32-36) g/dL RDW Std Deviation 42.4 (36.4-46.3) fL RDW Coeff of Eric 12.2 (11.5-14.5) % Plt Count 217 (130-400) K/uL MPV 8.9 (7.4-10.4) fL Sodium 141 (136-145) mmol/L Potassium 4.6 (3.5-5.1) mmol/L Chloride 110 H (98-107) mmol/L Carbon Dioxide 24 (21-32) mmol/L Anion Gap 6.0 (3-11) BUN 43 H (7-18) mg/dl Creatinine 2.98 H (0.6-1.4) mg/dl Est Cr Clr Drug Dosing 21.1 ml/min Est GFR ( Amer) 22.5 Est GFR (Non-Af Amer) 19.4 BUN/Creatinine Ratio 14.6 (10-20) Glucose 56 L (70-99) mg/dl POC Glucose 66 L* (70-99) Estimat Average Glucose Hemoglobin A1c Calcium 8.0 L (8.5-10.1) mg/dl Phosphorus 3.3 (2.5-4.9) mg/dl Magnesium 1.5 L (1.8-2.4) mg/dl Total Bilirubin 0.3 (0.2-1) mg/dl AST 16 (15-37) U/L ALT 15 (12-78) U/L Alkaline Phosphatase 83 (45-117) U/L Total Protein 6.5 (6.4-8.2) gm/dl Albumin 2.7 L (3.4-5.0) gm/dl Globulin 3.8 (2.5-4.0) gm/dl Albumin/Globulin Ratio 0.7 L (0.9-2) 12/30/18 12/29/18 Range/Units 05:27 20:32 WBC (4.8-10.8) K/uL RBC (4.7-6.1) M/uL Hgb (14.0-18.0) g/dL Hct (42-52) % MCV (80-100) fL MCH (25-34) pg MCHC (32-36) g/dL RDW Std Deviation (36.4-46.3) fL RDW Coeff of Eric (11.5-14.5) % Plt Count (130-400) K/uL MPV (7.4-10.4) fL Sodium (136-145) mmol/L Potassium (3.5-5.1) mmol/L Chloride (98-107) mmol/L Carbon Dioxide (21-32) mmol/L Anion Gap (3-11) BUN (7-18) mg/dl Creatinine (0.6-1.4) mg/dl Est Cr Clr Drug Dosing ml/min Est GFR ( Amer) Est GFR (Non-Af Amer) BUN/Creatinine Ratio (10-20) Glucose (70-99) mg/dl POC Glucose 159 H (70-99) Estimat Average Glucose Pending Hemoglobin A1c Pending Calcium (8.5-10.1) mg/dl Phosphorus (2.5-4.9) mg/dl Magnesium (1.8-2.4) mg/dl Total Bilirubin (0.2-1) mg/dl AST (15-37) U/L ALT (12-78) U/L Alkaline Phosphatase (45-117) U/L Total Protein (6.4-8.2) gm/dl Albumin (3.4-5.0) gm/dl Globulin (2.5-4.0) gm/dl Albumin/Globulin Ratio (0.9-2)
[2018-12-31] MEDS: LEVOTHYROXINE SODIUM 100 MCG TABLET PO SCH (06:10)
[2018-12-31] MEDS: SODIUM CHLORIDE 0.9% 1000ML 1,000 ML IV SCH (06:10)
[2018-12-31 06:51] LABS: Estimated Average Glucose 171 mg/dl; Hemoglobin A1C 7.6 % (4.5-5.6)
[2018-12-31 07:23] LABS: Hematocrit (blood only) 30.9 % (42-52); Hemoglobin 10.2 g/dL (14.0-18.0); Mean Corpuscular Volume 94.5 fL (80-100); Platelet Count 232 K/uL (130-400); RDW Coefficient of Variation 12.2 % (11.5-14.5); RDW Standard Deviation 41.5 fL (36.4-46.3); Red Blood Count 3.27 M/uL (4.7-6.1); White Blood Count 4.47 K/uL (4.8-10.8)
--- NOTE | 2018-12-31 07:55 | XRay Report ---
KUB HISTORY: Left side kidney stone COMPARISON: Abdomen and pelvis CT 12/29/2018. FINDINGS: The bowel gas pattern is unremarkable. There are no dilated loops of small bowel to suggest an obstruction. Redemonstration of the 3 mm proximal left ureteral stone adjacent to the left L3-L4 disc space. No renal calculi identified. No pneumoperitoneum or pneumatosis. IMPRESSION: No significant change in the 3 mm proximal left ureteral stone. Electronically signed by: Star Hackett M.D. 12/31/2018 7:54 AM
[2018-12-31 07:56] LABS: Albumin Level 2.6 gm/dl (3.4-5.0); BUN Creatinine Ratio 12.3 (10-20); Calcium 8.1 mg/dl (8.5-10.1); Creatinine Clr Calc Pharmacy 22.2 ml/min; Est GFR (Non-African American) 20.7; Magnesium 1.9 mg/dl (1.8-2.4); Potassium 4.9 mmol/L (3.5-5.1)
[2018-12-31 07:59] LABS: Albumin Globulin Ratio 0.8 (0.9-2); Bilirubin,Total 0.3 mg/dl (0.2-1); Globulin 3.4 gm/dl (2.5-4.0)
[2018-12-31] MEDS: TAMSULOSIN HCL 0.4 MG CAP PO SCH (08:41)
[2018-12-31] MEDS: INSULIN ASPART 100 UNITS/ML 3 ML PEN SC SCH ×4 (08:42→21:19)
[2018-12-31] MEDS: LACTATED RINGER'S 1,000 ML IV SCH ×2 (08:45→21:20)
--- NOTE | 2018-12-31 10:00 | Urology Progress Note ---
Date of Service December 31, 2018 Assessment & Plan (1) KEE (acute kidney injury): (2) Kidney stone: 78yo M with KEE, L ureteral stone. In no acute distress today, nontoxic appearing. Having some episodes of renal colic bu brief and self-limiting. States he has passed some sediment, denies passing large stone. Cr slightly improved to 2.83 today. Baseline approximately 1.3-1.4 per records. UC&S pending - prelim no growth. KUB today shows some progression of stone - now mid-ureteral. Plan for Renal US today to assess for L hydro. Continue to strain all urine. Continue IVFs and tamsulson. Hopeful patient will pass stone spontaneously. Pt strongly in favor of avoiding ureteral stenting if possible. Will make NPO at DC to reassess. Will continue to monitor closely with primary service. Subjective 78yo M with PMx for prostate cancer 10 years ago nephrolithiasis presented to [facility] ED with acute L flank pain x 2 days, associated with dry heaves. Passed small stone prior to arrival, but pain persisted. CT - 3.5mm obs L ureteral stone with mild hydro. KUB this AM - stone showing some progression, now mid-ureteral. Denies flank or suprapubic pain overnight. Voiding spontaneously into urinal - clear yellow. Denies hematuria/ dysuria today Physical Exam Vital Signs (Past 24 Hours): Last Vital Signs Temp 36.9 C 12/31/18 07:58 Pulse 64 12/31/18 07:58 Resp 18 12/31/18 07:58 BP 160/82 H 12/31/18 07:58 Pulse Ox 96 12/31/18 07:58 Physical Exam: A&Ox3 RRR abd soft, nontender Urine: clear, yellow Results & Data Laboratory Results Laboratory Results - last 48 hr 12/29/18 12/29/18 12/29/18 12:40 12:55 12:55 WBC 8.18 RBC 3.86 L Hgb 12.2 L Hct 36.9 L MCV 95.6 MCH 31.6 MCHC 33.1 RDW Std Deviation 42.6 RDW Coeff of Eric 12.3 Plt Count 284 MPV 8.8 Immature Gran % (Auto) 0.2 Neut % (Auto) 78.8 Lymph % (Auto) 12.1 [place] % (Auto) 7.7 Eos % (Auto) 1.0 Baso % (Auto) 0.2 Immature Gran # (Auto) 0.02 Neut # (Auto) 6.44 Lymph # (Auto) 0.99 L [place] # (Auto) 0.63 H Eos # (Auto) 0.08 Baso # (Auto) 0.02 Sodium 137 Potassium 4.7 Chloride 107 Carbon Dioxide 23 Anion Gap 8.0 BUN 48 H Creatinine 3.16 H Est Cr Clr Drug Dosing 19.9 Est GFR ( Amer) 21.0 Est GFR (Non-Af Amer) 18.1 BUN/Creatinine Ratio 15.0 Glucose 91 POC Glucose Estimat Average Glucose Hemoglobin A1c Calcium 9.0 Phosphorus Magnesium Total Bilirubin AST ALT Alkaline Phosphatase Total Protein Albumin Globulin Albumin/Globulin Ratio Urine Color Yellow Urine Appearance Clear Urine pH 5.0 Ur Specific [place] 1.021 Urine Protein Negative Urine Glucose (UA) Negative Urine Ketones Negative Urine Blood 1+ H Urine Nitrite Negative Urine Bilirubin Negative Urine Urobilinogen Negative Ur Leukocyte Esterase Negative Urine WBC (Auto) 1-5 Urine RBC (Auto) 0-4 U Hyaline Cast (Auto) 1-5 U Epithel Cells (Auto) 5-10 H Urine Bacteria (Auto) 1+ H Uric Acid Crystals Present H Urine Yeast Not Reportable 12/29/18 12/29/18 12/29/18 16:59 17:29 20:32 WBC RBC Hgb Hct MCV MCH MCHC RDW Std Deviation RDW Coeff of Eric Plt Count MPV Immature Gran % (Auto) Neut % (Auto) Lymph % (Auto) [place] % (Auto) Eos % (Auto) Baso % (Auto) Immature Gran # (Auto) Neut # (Auto) Lymph # (Auto) [place] # (Auto) Eos # (Auto) Baso # (Auto) Sodium Potassium Chloride Carbon Dioxide Anion Gap BUN Creatinine Est Cr Clr Drug Dosing Est GFR ( Amer) Est GFR (Non-Af Amer) BUN/Creatinine Ratio Glucose POC Glucose 52 L* 86 159 H Estimat Average Glucose Hemoglobin A1c Calcium Phosphorus Magnesium Total Bilirubin AST ALT Alkaline Phosphatase Total Protein Albumin Globulin Albumin/Globulin Ratio Urine Color Urine Appearance Urine pH Ur Specific [place] Urine Protein Urine Glucose (UA) Urine Ketones Urine Blood Urine Nitrite Urine Bilirubin Urine Urobilinogen Ur Leukocyte Esterase Urine WBC (Auto) Urine RBC (Auto) U Hyaline Cast (Auto) U Epithel Cells (Auto) Urine Bacteria (Auto) Uric Acid Crystals Urine Yeast 12/30/18 12/30/18 12/30/18 05:27 05:27 05:27 WBC 5.75 RBC 3.31 L Hgb 10.6 L Hct 31.6 L MCV 95.5 MCH 32.0 MCHC 33.5 RDW Std Deviation 42.4 RDW Coeff of Eric 12.2 Plt Count 217 MPV 8.9 Immature Gran % (Auto) Neut % (Auto) Lymph % (Auto) [place] % (Auto) Eos % (Auto) Baso % (Auto) Immature Gran # (Auto) Neut # (Auto) Lymph # (Auto) [place] # (Auto) Eos # (Auto) Baso # (Auto) Sodium 141 Potassium 4.6 Chloride 110 H Carbon Dioxide 24 Anion Gap 6.0 BUN 43 H Creatinine 2.98 H Est Cr Clr Drug Dosing 21.1 Est GFR ( Amer) 22.5 Est GFR (Non-Af Amer) 19.4 BUN/Creatinine Ratio 14.6 Glucose 56 L POC Glucose Estimat Average Glucose 171 Hemoglobin A1c 7.6 H Calcium 8.0 L Phosphorus 3.3 Magnesium 1.5 L Total Bilirubin 0.3 AST 16 ALT 15 Alkaline Phosphatase 83 Total Protein 6.5 Albumin 2.7 L Globulin 3.8 Albumin/Globulin Ratio 0.7 L Urine Color Urine Appearance Urine pH Ur Specific [place] Urine Protein Urine Glucose (UA) Urine Ketones Urine Blood Urine Nitrite Urine Bilirubin Urine Urobilinogen Ur Leukocyte Esterase Urine WBC (Auto) Urine RBC (Auto) U Hyaline Cast (Auto) U Epithel Cells (Auto) Urine Bacteria (Auto) Uric Acid Crystals Urine Yeast 12/30/18 12/30/18 12/30/18 08:14 08:15 12:01 WBC RBC Hgb Hct MCV MCH MCHC RDW Std Deviation RDW Coeff of Eric Plt Count MPV Immature Gran % (Auto) Neut % (Auto) Lymph % (Auto) [place] % (Auto) Eos % (Auto) Baso % (Auto) Immature Gran # (Auto) Neut # (Auto) Lymph # (Auto) [place] # (Auto) Eos # (Auto) Baso # (Auto) Sodium Potassium Chloride Carbon Dioxide Anion Gap BUN Creatinine Est Cr Clr Drug Dosing Est GFR ( Amer) Est GFR (Non-Af Amer) BUN/Creatinine Ratio Glucose POC Glucose 66 L* 77 188 H Estimat Average Glucose Hemoglobin A1c Calcium Phosphorus Magnesium Total Bilirubin AST ALT Alkaline Phosphatase Total Protein Albumin Globulin Albumin/Globulin Ratio Urine Color Urine Appearance Urine pH Ur Specific [place] Urine Protein Urine Glucose (UA) Urine Ketones Urine Blood Urine Nitrite Urine Bilirubin Urine Urobilinogen Ur Leukocyte Esterase Urine WBC (Auto) Urine RBC (Auto) U Hyaline Cast (Auto) U Epithel Cells (Auto) Urine Bacteria (Auto) Uric Acid Crystals Urine Yeast 12/30/18 12/30/18 12/31/18 16:52 19:50 06:43 WBC RBC Hgb Hct MCV MCH MCHC RDW Std Deviation RDW Coeff of Eric Plt Count MPV Immature Gran % (Auto) Neut % (Auto) Lymph % (Auto) [place] % (Auto) Eos % (Auto) Baso % (Auto) Immature Gran # (Auto) Neut # (Auto) Lymph # (Auto) [place] # (Auto) Eos # (Auto) Baso # (Auto) Sodium 142 Potassium 4.9 Chloride 112 H Carbon Dioxide 22 Anion Gap 9.0 BUN 35 H Creatinine 2.83 H Est Cr Clr Drug Dosing 22.2 Est GFR ( Amer) 24.0 Est GFR (Non-Af Amer) 20.7 BUN/Creatinine Ratio 12.3 Glucose 115 H POC Glucose 76 139 H Estimat Average Glucose Hemoglobin A1c Calcium 8.1 L Phosphorus Magnesium 1.9 Total Bilirubin 0.3 AST 14 L ALT 14 Alkaline Phosphatase 75 Total Protein 6.0 L Albumin 2.6 L Globulin 3.4 Albumin/Globulin Ratio 0.8 L Urine Color Urine Appearance Urine pH Ur Specific [place] Urine Protein Urine Glucose (UA) Urine Ketones Urine Blood Urine Nitrite Urine Bilirubin Urine Urobilinogen Ur Leukocyte Esterase Urine WBC (Auto) Urine RBC (Auto) U Hyaline Cast (Auto) U Epithel Cells (Auto) Urine Bacteria (Auto) Uric Acid Crystals Urine Yeast 12/31/18 12/31/18 06:43 07:53 WBC 4.47 L RBC 3.27 L Hgb 10.2 L Hct 30.9 L MCV 94.5 MCH 31.2 MCHC 33.0 RDW Std Deviation 41.5 RDW Coeff of Eric 12.2 Plt Count 232 MPV 9.0 Immature Gran % (Auto) Neut % (Auto) Lymph % (Auto) [place] % (Auto) Eos % (Auto) Baso % (Auto) Immature Gran # (Auto) Neut # (Auto) Lymph # (Auto) [place] # (Auto) Eos # (Auto) Baso # (Auto) Sodium Potassium Chloride Carbon Dioxide Anion Gap BUN Creatinine Est Cr Clr Drug Dosing Est GFR ( Amer) Est GFR (Non-Af Amer) BUN/Creatinine Ratio Glucose POC Glucose 104 H Estimat Average Glucose Hemoglobin A1c Calcium Phosphorus Magnesium Total Bilirubin AST ALT Alkaline Phosphatase Total Protein Albumin Globulin Albumin/Globulin Ratio Urine Color Urine Appearance Urine pH Ur Specific [place] Urine Protein Urine Glucose (UA) Urine Ketones Urine Blood Urine Nitrite Urine Bilirubin Urine Urobilinogen Ur Leukocyte Esterase Urine WBC (Auto) Urine RBC (Auto) U Hyaline Cast (Auto) U Epithel Cells (Auto) Urine Bacteria (Auto) Uric Acid Crystals Urine Yeast
--- NOTE | 2018-12-31 12:38 | Pharmacy Report ---
Pharmacy Glycemic Short Note 2 - Date of Service December 31, 2018 - Glycemic Short BSG Results (Last 24 hours): 12/30/18 12/30/18 12/31/18 16:52 19:50 06:43 Glucose 115 H POC Glucose 76 139 H 12/31/18 12/31/18 07:53 11:57 Glucose POC Glucose 104 H 115 H OUTPATIENT ANTIDIABETIC REGIMEN: * Metformin * Januvia * Amaryl ASSESSMENT: 3-4: * Patient received total of 14 units of insulin yesterday, no basal needed * Fasting BSG within range this am at 104 mg/dL - will continue with basal scale for this evening with parameters if BSGs increase * Yesterday lunchtime BSG went from 188 mg/dL to 76 mg/dL with dinner after receiving 9 units of correction - feel that CR may be too aggressive at this time therefore will loosen to 12 today * Lunchtime BSG today with modified CR at 115 mg/dL - will continue to follow and trend 3-3: * 78yo T2M male with adequate outpatient diabetes control based on age/commodities. Goal A1c is likely <8 % * Pt with hypoglycemia on admission secondary to KEE and sulfonylurea. Sulfonylureas lead to LONG STANDING hypo with KEE. Scr trending downward. * Last episode of hypoglycemia was 3/3 AM; 66 mg/dL. BSG improved to 188 mg/dL by lunchtime. * Will start a conservative dose of basal insulin to be given at bedtime if BSG remains 180 mg/dL or greater. PLAN FOR INPATIENT GLYCEMIC CONTROL: * Holding outpatient oral diabetes medications * Basal insulin * Lantus per scale at HS * 0 units for BSG < 180 mg/dL * 7 units for BSG 180 mg/dL or more * Bolus insulin - loosen carb coverage * NovoLog per scale ACHS or Q6hrs while NPO * Goal Range: Low 110 mg/dL - High 140 mg/dL * Correction Factor: 30 mg/dL/unit * Nutritional / Prandial insulin per carb ratio of 1 unit per 12 grams CHO consumed DISCHARGE PLAN: * Scr continues to improve, however would recommend further improvement back to patient's baseline Scr before restarting oral agents at this time. Sulfonylureas lead to long standing hypoglycemia in KEE. Will continue to follow. thank you
--- NOTE | 2018-12-31 14:10 | Ultrasound Report ---
US renal/blad retro comp HISTORY: 78 years-old Male assess for L hydro acute left flank pain COMPARISON: KUB of same day, CT abdomen and pelvis 12/29/2018 TECHNIQUE: Multiple real-time sonographic images of the kidneys and urinary bladder were obtained ass essing grayscale appearance and color flow FINDINGS: The right kidney measures 11.9 cm in length. Multiple right-sided renal cysts redemonstrated measurin g up to 8.3 cm. There is mild right-sided pelvocaliectasis noted. Left kidney measures 12.8 cm in length. Multiple left-sided renal cysts also noted measuring up to 6. 2 cm. Mild to moderate left-sided hydroureteronephrosis with 7 mm calculus about the proximal left ur eter redemonstrated. Urinary bladder is partially decompressed. Only the right ureteral jet noted. IMPRESSION: 1. Mild to moderate left-sided hydroureteronephrosis with 7 mm calculus redemonstrated about the prox imal left ureter. 2. Bilateral renal cysts. 3. Partially decompressed bladder with nonvisualization of the left ureteral jet. The above report was generated using voice recognition software. It may contain grammatical, syntax o r spelling errors. Electronically signed by: Giovanni Lemus M.D. 12/31/2018 2:09 PM
--- NOTE | 2018-12-31 14:44 | Hospitalist Progress Note ---
Date of Service December 31, 2018 Assessment & Plan (1) Kidney stone: - CT A/P showed obstructing calculus of proximal left ureter with mild left hydronephrosis. - Urology consulted, appreciate input. - IV fluids at 80 cc/hr. - Flomax 0.4 mg qAM; strain all urine. - KUB showed no change in left sided stone; Renal US showed mild to moderate left sided hydronephrosis with 7 mm calculus. - NPO after midnight; pt. would like to avoid ureter stent if possible. (2) Hydronephrosis: - Noted on CT of A/P and renal US. (3) KEE (acute kidney injury): - Creatinine increased to 3.16 on admission in setting of kidney stone/obstruction; baseline ~1.4 - Now trending down, was 2.83 on morning labs. - IV fluids at 80 cc/hr; expect improvement in levels with passage of stone. (4) DM II (diabetes mellitus, type II), controlled: - Hold home Januvia, Metformin and Glimepiride. - SSI with gluc checks. - Last A1C was 7.9 on 12/20/18. (5) History of prostate cancer: - Hx of such 10 years ago, stable. (6) Hypothyroidism: - Continue levothyroxine 100 mg daily. - TSH was 4.7 in Nov 2018; will need to f/u with PCP to discuss. (7) HLD (hyperlipidemia): - Not on statin therapy. (8) Anemia: - Hgb trending down, 10.2. Likely related to aggressive IV fluids. - Monitor qAM. (9) Elevated BP without diagnosis of hypertension: - BP has been elevated, SBP 150-170's. - May be related to IV fluids vs. acute pain vs. other. - Will continue to monitor; may require addition of anti-hypertensive agent if BP remains elevated. (10) Hyperchloremia: - Chl elevated to 112 -- may be related to aggressive NS hydration. - Change to LR at 80 cc/hr. (11) DVT prophylaxis: - SCDS; hold pharmacologic ppx for possible procedure. Dispo: Med/surg for kidney stone, pain control. May require surgical intervention if no improvement/passage of stone. Supervising Physician Co-Signing Physician Notes Attending Attestation - Chart reviewed in detail, care plan d/w SERA Funk. I agree w/ the jones components of her documentation. Still employing conservative measures for obstructing kidney stone but thus far no spontaneous passage. Vitals remain stable. Acute kidney injury mildly better in setting of CKD stage 3. NPO after MN tonight for possible urological intervention in the morning if no passage. Cont gentle fluids and pain control in meantime. Segundo Shaikh MD Subjective Pt. states left flank pain is stable, very minimal. Has mild dysuria this morning, denies hematuria. Last BM was yesterday, denies constipation. Is passumer rao gas. Urology following, appreciate input. Review of Systems All systems reviewed & are unremarkable except as noted in HPI & below Constitutional: no fever, no chills, no fatigue and no weakness Respiratory: no cough and no dyspnea Cardiovascular: no chest pain, no palpitations and no edema Gastrointestinal: + constipation; no abdominal pain, no nausea, no vomiting and no diarrhea/loose stools Genitourinary (Male): + dysuria; no difficulty urinating and no hematuria Musculoskeletal: no joint pain Allergy / Immunological: no rash Physical Exam Vital Signs (Past 24 Hours): Last Vital Signs Temp 36.9 C 12/31/18 07:58 Pulse 64 12/31/18 07:58 Resp 18 12/31/18 07:58 BP 160/82 H 12/31/18 07:58 Pulse Ox 96 12/31/18 07:58 Physical Exam: General: Resting comfortably in no apparent distress; A&OX3 HEENT: NC/AT; PERRLA with EOMI; [place] conjunctiva, MMM. Neck: Supple and nontender Cardiac: RRR Lungs: CTA bilaterally Abdomen: Bowel normoactive X 4; Nontender to palpation Extremities: Warm. No edema present Neuro: No focal weakness Skin: No rash Results & Data Laboratory Results 12/31/18 12/31/18 12/31/18 Range/Units 11:57 07:53 06:43 WBC 4.47 L (4.8-10.8) K/uL RBC 3.27 L (4.7-6.1) M/uL Hgb 10.2 L (14.0-18.0) g/dL Hct 30.9 L (42-52) % MCV 94.5 (80-100) fL MCH 31.2 (25-34) pg MCHC 33.0 (32-36) g/dL RDW Std Deviation 41.5 (36.4-46.3) fL RDW Coeff of Eric 12.2 (11.5-14.5) % Plt Count 232 (130-400) K/uL MPV 9.0 (7.4-10.4) fL Sodium (136-145) mmol/L Potassium (3.5-5.1) mmol/L Chloride (98-107) mmol/L Carbon Dioxide (21-32) mmol/L Anion Gap (3-11) BUN (7-18) mg/dl Creatinine (0.6-1.4) mg/dl Est Cr Clr Drug Dosing ml/min Est GFR ( Amer) Est GFR (Non-Af Amer) BUN/Creatinine Ratio (10-20) Glucose (70-99) mg/dl POC Glucose 115 H 104 H (70-99) Estimat Average Glucose mg/dl Hemoglobin A1c (4.5-5.6) % Calcium (8.5-10.1) mg/dl Magnesium (1.8-2.4) mg/dl Total Bilirubin (0.2-1) mg/dl AST (15-37) U/L ALT (12-78) U/L Alkaline Phosphatase (45-117) U/L Total Protein (6.4-8.2) gm/dl Albumin (3.4-5.0) gm/dl Globulin (2.5-4.0) gm/dl Albumin/Globulin Ratio (0.9-2) 12/31/18 12/30/18 12/30/18 Range/Units 06:43 19:50 16:52 WBC (4.8-10.8) K/uL RBC (4.7-6.1) M/uL Hgb (14.0-18.0) g/dL Hct (42-52) % MCV (80-100) fL MCH (25-34) pg MCHC (32-36) g/dL RDW Std Deviation (36.4-46.3) fL RDW Coeff of Eric (11.5-14.5) % Plt Count (130-400) K/uL MPV (7.4-10.4) fL Sodium 142 (136-145) mmol/L Potassium 4.9 (3.5-5.1) mmol/L Chloride 112 H (98-107) mmol/L Carbon Dioxide 22 (21-32) mmol/L Anion Gap 9.0 (3-11) BUN 35 H (7-18) mg/dl Creatinine 2.83 H (0.6-1.4) mg/dl Est Cr Clr Drug Dosing 22.2 ml/min Est GFR ( Amer) 24.0 Est GFR (Non-Af Amer) 20.7 BUN/Creatinine Ratio 12.3 (10-20) Glucose 115 H (70-99) mg/dl POC Glucose 139 H 76 (70-99) Estimat Average Glucose mg/dl Hemoglobin A1c (4.5-5.6) % Calcium 8.1 L (8.5-10.1) mg/dl Magnesium 1.9 (1.8-2.4) mg/dl Total Bilirubin 0.3 (0.2-1) mg/dl AST 14 L (15-37) U/L ALT 14 (12-78) U/L Alkaline Phosphatase 75 (45-117) U/L Total Protein 6.0 L (6.4-8.2) gm/dl Albumin 2.6 L (3.4-5.0) gm/dl Globulin 3.4 (2.5-4.0) gm/dl Albumin/Globulin Ratio 0.8 L (0.9-2) 12/30/18 Range/Units 05:27 WBC (4.8-10.8) K/uL RBC (4.7-6.1) M/uL Hgb (14.0-18.0) g/dL Hct (42-52) % MCV (80-100) fL MCH (25-34) pg MCHC (32-36) g/dL RDW Std Deviation (36.4-46.3) fL RDW Coeff of Eric (11.5-14.5) % Plt Count (130-400) K/uL MPV (7.4-10.4) fL Sodium (136-145) mmol/L Potassium (3.5-5.1) mmol/L Chloride (98-107) mmol/L Carbon Dioxide (21-32) mmol/L Anion Gap (3-11) BUN (7-18) mg/dl Creatinine (0.6-1.4) mg/dl Est Cr Clr Drug Dosing ml/min Est GFR ( Amer) Est GFR (Non-Af Amer) BUN/Creatinine Ratio (10-20) Glucose (70-99) mg/dl POC Glucose (70-99) Estimat Average Glucose 171 mg/dl Hemoglobin A1c 7.6 H (4.5-5.6) % Calcium (8.5-10.1) mg/dl Magnesium (1.8-2.4) mg/dl Total Bilirubin (0.2-1) mg/dl AST (15-37) U/L ALT (12-78) U/L Alkaline Phosphatase (45-117) U/L Total Protein (6.4-8.2) gm/dl Albumin (3.4-5.0) gm/dl Globulin (2.5-4.0) gm/dl Albumin/Globulin Ratio (0.9-2)
[2018-12-31] MEDS: INSULIN GLARGINE SOLOSTAR 100 UNITS/ML 3 ML PEN SC SCH (21:16)
[2018-12-31] MEDS ORDERED: Nursing to Pharmacy Communication ONE (23:32)
[2019-01-01] MEDS: INSULIN ASPART 100 UNITS/ML 3 ML PEN SC SCH ×5 (00:35→21:07)
[2019-01-01] MEDS: LEVOTHYROXINE SODIUM 100 MCG TABLET PO SCH (06:21)
[2019-01-01 07:54] LABS: Hematocrit (blood only) 31.1 % (42-52); Hemoglobin 10.4 g/dL (14.0-18.0); Mean Corpuscular Hgb Conc 33.4 g/dL (32-36); Mean Corpuscular Volume 93.7 fL (80-100); Mean Platelet Volume 9.2 fL (7.4-10.4); Platelet Count 265 K/uL (130-400); RDW Coefficient of Variation 12.1 % (11.5-14.5); RDW Standard Deviation 41.1 fL (36.4-46.3); Red Blood Count 3.32 M/uL (4.7-6.1); White Blood Count 5.12 K/uL (4.8-10.8)
[2019-01-01 08:32] LABS: BUN Creatinine Ratio 13.1 (10-20); Calcium 8.6 mg/dl (8.5-10.1); Creatinine Clr Calc Pharmacy 21.7 ml/min; Est GFR (African American) 23.3; Est GFR (Non-African American) 20.1; Magnesium 1.7 mg/dl (1.8-2.4); Potassium 4.8 mmol/L (3.5-5.1)
[2019-01-01 08:35] LABS: Albumin Globulin Ratio 0.8 (0.9-2); Bilirubin,Total 0.3 mg/dl (0.2-1); Globulin 3.7 gm/dl (2.5-4.0); Total Protein 6.7 gm/dl (6.4-8.2)
[2019-01-01] MEDS: TAMSULOSIN HCL 0.4 MG CAP PO SCH (09:05)
--- NOTE | 2019-01-01 09:16 | Urology Progress Note ---
Date of Service January 01, 2019 Assessment & Plan (1) Kidney stone: 78yo with 3.5mm L ureteral stone with mild hydro, KEE Cr remains elevated at 2.9. Pt continues to void spontaneously, denies passage of stone. KUB now for stone progression Pt evaluated with Dr. Summers. Findings reviewed with patient. Renal failure in context of an obstructing renal stone, will proceed to OR for urgent cysto, left RPG, stent placement, possible ureteroscopy, laser litho, stone basketing depending on findings. Risks and benefits reviewed with patient by Dr. Summers. OR notified. Surgery today. Will cover with IV ciprofloxacin preoperatively. Subjective 78yo with obs L ureteral stone and KEE Uneventful evening, pain controlled without medication Tolerating PO diet. Denies f/c/n/v. Denies renal colic, flank pain or suprapubic pain. Voiding spontaneously. Denies urgency/frequency. Denies dysuria or hematuria. Review of Systems All systems reviewed & are unremarkable except as noted in HPI & below Physical Exam Vital Signs (Past 24 Hours): Last Vital Signs Temp 37.0 C 01/01/19 06:52 Pulse 67 01/01/19 06:52 Resp 18 01/01/19 06:52 BP 174/88 H 01/01/19 06:52 Pulse Ox 94 01/01/19 06:52 Physical Exam: A&Ox3 RRR CV: no JVD, no edema abd soft, nontender ambulating independently Results & Data Laboratory Results Laboratory Results - last 48 hr 12/30/18 12/30/18 12/30/18 05:27 12:01 16:52 WBC RBC Hgb Hct MCV MCH MCHC RDW Std Deviation RDW Coeff of Eric Plt Count MPV Sodium Potassium Chloride Carbon Dioxide Anion Gap BUN Creatinine Est Cr Clr Drug Dosing Est GFR ( Amer) Est GFR (Non-Af Amer) BUN/Creatinine Ratio Glucose POC Glucose 188 H 76 Estimat Average Glucose 171 Hemoglobin A1c 7.6 H Calcium Magnesium Total Bilirubin AST ALT Alkaline Phosphatase Total Protein Albumin Globulin Albumin/Globulin Ratio 12/30/18 12/31/18 12/31/18 19:50 06:43 06:43 WBC 4.47 L RBC 3.27 L Hgb 10.2 L Hct 30.9 L MCV 94.5 MCH 31.2 MCHC 33.0 RDW Std Deviation 41.5 RDW Coeff of Eric 12.2 Plt Count 232 MPV 9.0 Sodium 142 Potassium 4.9 Chloride 112 H Carbon Dioxide 22 Anion Gap 9.0 BUN 35 H Creatinine 2.83 H Est Cr Clr Drug Dosing 22.2 Est GFR ( Amer) 24.0 Est GFR (Non-Af Amer) 20.7 BUN/Creatinine Ratio 12.3 Glucose 115 H POC Glucose 139 H Estimat Average Glucose Hemoglobin A1c Calcium 8.1 L Magnesium 1.9 Total Bilirubin 0.3 AST 14 L ALT 14 Alkaline Phosphatase 75 Total Protein 6.0 L Albumin 2.6 L Globulin 3.4 Albumin/Globulin Ratio 0.8 L 12/31/18 12/31/18 12/31/18 07:53 11:57 17:07 WBC RBC Hgb Hct MCV MCH MCHC RDW Std Deviation RDW Coeff of Eric Plt Count MPV Sodium Potassium Chloride Carbon Dioxide Anion Gap BUN Creatinine Est Cr Clr Drug Dosing Est GFR ( Amer) Est GFR (Non-Af Amer) BUN/Creatinine Ratio Glucose POC Glucose 104 H 115 H 113 H Estimat Average Glucose Hemoglobin A1c Calcium Magnesium Total Bilirubin AST ALT Alkaline Phosphatase Total Protein Albumin Globulin Albumin/Globulin Ratio 12/31/18 01/01/19 01/01/19 20:55 00:14 06:17 WBC RBC Hgb Hct MCV MCH MCHC RDW Std Deviation RDW Coeff of Eric Plt Count MPV Sodium Potassium Chloride Carbon Dioxide Anion Gap BUN Creatinine Est Cr Clr Drug Dosing Est GFR ( Amer) Est GFR (Non-Af Amer) BUN/Creatinine Ratio Glucose POC Glucose 178 H 112 H 126 H Estimat Average Glucose Hemoglobin A1c Calcium Magnesium Total Bilirubin AST ALT Alkaline Phosphatase Total Protein Albumin Globulin Albumin/Globulin Ratio 01/01/19 01/01/19 01/01/19 06:54 06:54 08:05 WBC 5.12 RBC 3.32 L Hgb 10.4 L Hct 31.1 L MCV 93.7 MCH 31.3 MCHC 33.4 RDW Std Deviation 41.1 RDW Coeff of Eric 12.1 Plt Count 265 MPV 9.2 Sodium 140 Potassium 4.8 Chloride 109 H Carbon Dioxide 22 Anion Gap 9.0 BUN 38 H Creatinine 2.90 H Est Cr Clr Drug Dosing 21.7 Est GFR ( Amer) 23.3 Est GFR (Non-Af Amer) 20.1 BUN/Creatinine Ratio 13.1 Glucose 122 H POC Glucose 133 H Estimat Average Glucose Hemoglobin A1c Calcium 8.6 Magnesium 1.7 L Total Bilirubin 0.3 AST 16 ALT 16 Alkaline Phosphatase 77 Total Protein 6.7 Albumin 3.0 L Globulin 3.7 Albumin/Globulin Ratio 0.8 L
--- NOTE | 2019-01-01 09:33 | XRay Report ---
KUB HISTORY: ureteral stone COMPARISON: KUB 12/31/2018. FINDINGS: The bowel gas pattern is unremarkable. There are no dilated loops of small bowel to suggest an obstruction. No change in the 3 mm proximal left ureteral stone. No additional renal calculi jose ntified. No pneumoperitoneum or pneumatosis. IMPRESSION: No change in the 3 mm proximal left ureteral stone. Electronically signed by: Star Hackett M.D. 01/01/2019 9:32 AM
[2019-01-01] MEDS ORDERED: CIPROFLOXACIN 400 MG/200 ML BAG IV SCH (10:15)
--- NOTE | 2019-01-01 10:16 | XRay Report ---
XR chest 1V portable CLINICAL HISTORY: preop preoperative evaluation COMPARISON STUDY: 01/03/2013 FINDINGS: The bones soft tissues and hemidiaphragms are normal. The cardiomediastinal silhouette is n ormal. The lungs are clear. The pulmonary vasculature is normal. IMPRESSION: Negative chest. The above report was generated using voice recognition software. It may contain grammatical, syntax or spelling errors. Electronically signed by: Silvestre Reyes M.D. 01/01/2019 10:15 AM
--- NOTE | 2019-01-01 10:55 | Anesthesiology Consultation ---
Date of Service January 01, 2019 Assessment & Plan (1) Encounter for pre-operative examination: Chart Review Chart Review: Acceptable Risk for Surgery NPO Date Last Intake of Fluids: 12/31/18 Time Last Intake of Fluids: 19:30 Last Intake of Fluids Comment: sip of water with medication Date Last Intake of Solids: 12/31/18 Time Last Intake of Solids: 19:30 History Surgery Operation Date: 01/01/19 10:20 Proposed Procedures p Cystoscopy, Left Retrograde Pyelogram, Possible Laser Lithotripsy, Possible Ureteroscopy, Possible Basket Stone Extraction; Stent Placement - Jose Summers MD Height/Weight Height: 5 ft 9 in Weight: 75.1 kg Allergies Allergy/AdvReac Type Severity Reaction Status Date / Time No Known Allergies Allergy Unknown Verified 12/29/18 13:55 Medications Home Medications Medication Instructions Recorded Confirmed Last Taken glimepiride 4 mg PO BID 12/29/18 12/29/18 12/29/18 levothyroxine 100 mg PO DAILY 12/29/18 12/29/18 12/29/18 metformin 1,000 mg PO HS 12/29/18 12/29/18 12/28/18 metformin 1,000 mg PO QAM 12/29/18 12/29/18 12/29/18 metformin 500 mg PO QDL 12/29/18 12/29/18 12/28/18 sitagliptin [Januvia] 100 mg PO DAILY 12/29/18 12/29/18 12/29/18 Active Medications Generic Name Dose Route Start Last Admin Trade Name Freq PRN Reason Stop Dose Admin Lactated Ringer's 1,000 mls @ 80 mls/hr 12/31/18 08:30 01/01/19 10:25 Lr IV 01/30/19 08:29 0 mls/hr .[id number] COBY Infusion Insulin Aspart 0 units 01/01/19 00:00 01/01/19 06:21 Novolog Flexpen SC 01/31/19 00:00 Not Given Q6 COBY Insulin Glargine 0 units 12/30/18 17:00 12/31/18 21:16 Lantus Solostar Pen SC 01/29/19 16:59 Not Given HS COBY Protocol Levothyroxine Sodium 100 mcg 12/30/18 06:30 01/01/19 06:21 Synthroid PO 01/29/19 06:29 100 mcg DAILYBB COBY Administration Miscellaneous 15 - 30 gm 12/29/18 15:13 12/29/18 17:13 Carbohydrates For Hypoglycemia PO 01/28/19 15:12 33 gm UD PRN Administration Hypoglycemia Treatment Tamsulosin HCl 0.4 mg 12/30/18 09:00 01/01/19 09:05 Flomax PO 01/29/19 08:59 0.4 mg QAM COBY Administration Past Medical History Medical History Hydronephrosis Anemia Osteopenia HLD (hyperlipidemia) Hypothyroidism History of prostate cancer DM II (diabetes mellitus, type II), controlled KEE (acute kidney injury) (Acute) Kidney stone (Acute) Kidney stones (Acute) Past Family History Family History Other CHF (congestive heart failure) Cardiac pacemaker in situ DM II (diabetes mellitus, type II), controlled Nephrolithiasis No pertinent family history Prostate cancer Past Surgical History Surgical History H/O radical retropubic prostatectomy Social History Smoking Status: Never smoker Do You Dip or Chew Tobacco: No Hx Alcohol Use: No Hx Substance Use: No Physical Exam Vital Signs Last Vital Signs Temp 36.7 C 01/01/19 10:50 Pulse 78 01/01/19 10:50 Resp 20 01/01/19 10:50 BP 188/94 H 01/01/19 10:50 Pulse Ox 96 01/01/19 10:50 Testing Electrocardiogram Date: 01/01/19 Findings: + NSR @ (73) Laboratory Results 01/01/19 06:54 01/01/19 06:54 Hemoglobin A1c 7.6 % (4.5-5.6) H 12/30/18 05:27 Urine Color Yellow 12/29/18 12:40 Urine Appearance Clear (Clear) 12/29/18 12:40 Urine pH 5.0 (4.5-7.5) 12/29/18 12:40 Ur Specific [place] 1.021 (1.000-1.030) 12/29/18 12:40 Urine Protein Negative (Negative) 12/29/18 12:40 Urine Glucose (UA) Negative (Negative) 12/29/18 12:40 Urine Ketones Negative (Negative) 12/29/18 12:40 Urine Nitrite Negative (Negative) 12/29/18 12:40 Ur Leukocyte Esterase Negative (Negative) 12/29/18 12:40 Urine WBC (Auto) 1-5 /hpf (0-5) 12/29/18 12:40 Urine RBC (Auto) 0-4 /hpf (0-4) 12/29/18 12:40 U Hyaline Cast (Auto) 1-5 /lpf (0-5) 12/29/18 12:40 U Epithel Cells (Auto) 5-10 /lpf (0-5) H 12/29/18 12:40 Urine Bacteria (Auto) 1+ (Negative) H 12/29/18 12:40 12/29/18 12:40 Urine Culture - Final Urine,Straight Cath No growth - less than 1,000 colonies/mL. 01/01/19 01/01/19 01/01/19 08:05 06:17 00:14 POC Glucose 133 H 126 H 112 H
[2019-01-01] MEDS ORDERED: LIDOCAINE HCL 2% 2 ML VIAL/AMP(20MG/ML) INFIL ONE (11:00)
[2019-01-01] MEDS ORDERED: PROPOFOL IV EMULSION 10 MG/ML 20 ML VIAL IV ONE (11:00)
[2019-01-01] MEDS ORDERED: ONDANSETRON INJ 2 MG/ML 2 ML VIAL ONE (11:00)
[2019-01-01] MEDS ORDERED: DEXAMETHASONE SOD INJ 4 MG/ML VIAL ONE (11:00)
[2019-01-01] MEDS ORDERED: MIDAZOLAM HCL 1 MG/ML 2ML VIAL ONE (11:01)
[2019-01-01] MEDS ORDERED: fentaNYL citrate 100 MCG/2 ML VIAL ONE (11:01)
[2019-01-01] MEDS ORDERED: ATROPINE SULFATE 0.1 MG/ML 10ML SYR IV PRN (11:04)
[2019-01-01] MEDS ORDERED: ONDANSETRON INJ 2 MG/ML 2 ML VIAL IV PRN (11:04)
[2019-01-01] MEDS ORDERED: LABETALOL HCL IV 5 MG/ML 20ML IV PRN (11:04)
[2019-01-01] MEDS ORDERED: fentaNYL citrate 100 MCG/2 ML VIAL IV PRN (11:04)
[2019-01-01] MEDS: LACTATED RINGER'S 1,000 ML IV SCH ×3 (11:06→22:46)
[2019-01-01] MEDS ORDERED: IOTHALAMATE MEGLUMINE II 17.2% 250 ML VIAL ONE (11:12)
--- NOTE | 2019-01-01 12:44 | Post Operative Brief Note ---
Immediate Post Op Note v1 Date of Surgery January 01, 2019 Pre & Post Diagnosis Operation Date: 01/01/19 10:20 Pre-Op Diagnosis: LEFT NEPHROLITHIASIS, HYDRONEPHROSIS Post-Op Diagnosis: LEFT NEPHROLITHIASIS, HYDRONEPHROSIS Procedure Operation Date: 01/01/19 10:20 Actual Procedures p Cystoscopy, Left Retrograde Pyelogram, Possible Laser Lithotripsy, Possible Ureteroscopy, Possible Basket Stone Extraction; Stent Placement - Jose Summers MD Surgeon Jose Summers MD Assistant Loan Processor none Estimated Blood Loss 2 Findings Consistent with Post-Op Diagnosis
--- NOTE | 2019-01-01 12:54 | Fluoroscopy Report ---
FL retrograde includes kub CLINICAL HISTORY: LT CYSTO/LASER/STENT COMPARISON STUDY: None FLUOROSCOPY TIME: 39 seconds NUMBER OF FLUOROSCOPIC IMAGES: 3 FINDINGS: Image intensifier support for his cystoscopy and left ureteral stent placement. Stent is in good position. IMPRESSION: Image intensifier support cystoscopy and left ureteral stent placement The above report was generated using voice recognition software. It may contain grammatical, syntax or spelling errors. Electronically signed by: Silvestre Reyes M.D. 01/01/2019 12:53 PM
--- NOTE | 2019-01-01 13:25 | Operative Report ---
DATE OF OPERATION: 01/01/2019 PREOPERATIVE DIAGNOSIS: Left proximal ureteral stone. POSTOPERATIVE DIAGNOSIS: Left proximal ureteral stone. NAME OF PROCEDURE: Left ureteroscopy, left laser lithotripsy and left stent placement and left balloon dilation of distal ureter. SURGEON: Dr. Summers. ANESTHESIA: General. INDICATIONS: The patient is a 78-year-old male who apparently passed a stone short time ago, was admitted recently 3 days ago to the hospital with left flank pain and had a proximal 3-4 mm left ureteral stone that did not move over the past 3 days. His creatinine was somewhat elevated. He is having ongoing fullness and discomfort. We discussed the options and elected to proceed with an attempted ureteroscopy with understanding that if was unable to do so, we will place a stent. DESCRIPTION OF THE PROCEDURE: The patient was taken to the Operating Room where general anesthesia was administered. He had Venodyne stockings placed. He was given preoperative ciprofloxacin antibiotics. After general anesthesia was administered, a cystoscopy was performed, did not see any evidence of any abnormalities of his bladder, but he did have a ____ narrowing at the bladder neck and appeared that he did have a radical prostatectomy or a significant TURP. Once inside the bladder neck, I was able to pass a guidewire up into the proximal ureter under fluoroscopy. I was unable to pass the semi-rigid ureteroscope into the distal ureter, but I resubmit the cystoscope over the previously placed guidewire to pass a balloon dilator over that into the distal ureter and dilated to 12 atmospheres for 2 minutes. I then deflated this, removed the cystoscope, leaving a safety wire in place, passed the semirigid scope up into the renal pelvis. Can see the wire, the stone right at the renal pelvis, but it fell back into the kidney. Then I placed another guidewire, removed the semirigid ureteroscope and passed a flexible ureteroscope up into the kidney. I found the stone eventually in the proximal ureteral asha and was able to fragment it into more than 4-5 pieces with a laser at settings of 6 and 18. At the end of this, I removed the scope leaving the safety wire in place and replaced a 5-[place] 26 cm stent with a loop and then transferred the patient to the Recovery Room in stable condition. I attest to the content of the Intraoperative Record and any orders documented therein. Any exception s are noted below.
--- NOTE | 2019-01-01 13:29 | Anesthesiology Progress Note ---
Date of Service January 01, 2019 Anesthesia Post Procedure Vital Signs Vital Signs: Temp Pulse Pulse Resp BP BP Pulse Ox 01/01/19 13:20 67 20 149/85 H 94 01/01/19 13:10 64 20 166/77 H 100 01/01/19 13:00 65 21 161/77 H 99 01/01/19 12:53 36.2 C L 69 12 162/79 H 96 01/01/19 10:50 36.7 C 78 20 188/94 H 96 01/01/19 06:52 37.0 C 67 18 174/88 H 94 12/31/18 22:37 37 C 66 16 153/63 H 93 12/31/18 15:10 37 C 78 18 169/77 H 95 Pain Intensity Left Flank: Pain Intensity: 0 Notes Mental Status: alert / awake / arousable Patient Amnestic to Procedure: Yes Nausea / Vomiting: adequately controlled Pain: adequately controlled Airway Patency, RR, SpO2: stable & adequate BP & HR: stable & adequate Hydration State: stable & adequate Anesthetic Complications: no major complications apparent
--- NOTE | 2019-01-01 13:39 | Hospitalist Progress Note ---
Date of Service January 01, 2019 Assessment & Plan (1) Kidney stone: - CT A/P showed obstructing calculus of proximal left ureter with mild left hydronephrosis. - Renal US on 12/31/18 showed mild to moderate left sided hydronephrosis with 7 mm calculus. - KUB this morning showed no change in location of calculus. - Urology consulted, appreciate input. - S/p ureteroscopy, left laser lithotripsy and left stent placement today. - IV fluids at 80 cc/hr. - Flomax 0.4 mg qAM. (2) Hydronephrosis: - Noted on CT of A/P and renal US. (3) KEE (acute kidney injury): - Creatinine increased to 3.16 on admission in setting of kidney stone/obstruction; baseline ~1.4 - Level was 2.9 on morning labs, expect improvement in renal function status post procedure. - IV fluids at 80 cc/hr. (4) DM II (diabetes mellitus, type II), controlled: - Hold home Januvia, Metformin and Glimepiride. - SSI and Lantus; pharmacy consulted for glycemic management. - Last A1C was 7.9 on 12/20/18 (5) History of prostate cancer: - Hx of such 10 years ago, stable. (6) Hypothyroidism: - Continue levothyroxine 100 mg daily. - TSH was 4.7 in Nov 2018; will need to f/u with PCP to discuss. (7) HLD (hyperlipidemia): - Not on statin therapy. (8) Anemia: - Hgb decreased, ~10-11. Likely related to aggressive IV fluids. - Monitor qAM. (9) Elevated BP without diagnosis of hypertension: - BP has been elevated, SBP 150-170's. - May be related to IV fluids vs. acute pain vs. anxiety. - Will continue to monitor; may require addition of anti-hypertensive agent if BP remains elevated. (10) Hypomagnesemia: - Mag level 1.7 - ordered mag sulfate 2 gm IV. (11) DVT prophylaxis: - SCDS; hold pharmacologic ppx for procedure. Dispo: Med/surg for kidney stone, pain control. S/p left lithotripsy and stent placement in OR today. Supervising Physician Co-Signing Physician Notes PA Supervision Note: I did not personally see or examine the patient today, but I verified all jones points of SERA Randall's assessment and plan with the following exceptions/additions: None Subjective Pt. is doing well overall. He denies left flank pain. He has mild dysuria with urination, denies hematuria. Has been having regular BMs, denies nausea/vomiting. Pt. does not want stent placement but has not passed stone during this admission. Urology following, s/p left ureteroscopy, laser lithotripsy and left stent placement today. Review of Systems All systems reviewed & are unremarkable except as noted in HPI & below Constitutional: no fever, no chills, no fatigue and no weakness Respiratory: no cough and no dyspnea Cardiovascular: no chest pain, no palpitations and no edema Gastrointestinal: no abdominal pain, no nausea, no vomiting, no constipation and no diarrhea/loose stools Genitourinary (Male): + dysuria; no difficulty urinating, no hematuria and no flank pain Musculoskeletal: no joint pain Allergy / Immunological: no rash Physical Exam Vital Signs (Past 24 Hours): Last Vital Signs Temp 36.2 C L 01/01/19 12:53 Pulse 67 01/01/19 13:20 Resp 20 01/01/19 13:20 BP 149/85 H 01/01/19 13:20 Pulse Ox 94 01/01/19 13:20 Physical Exam: General: Resting comfortably in no apparent distress; A&OX3 HEENT: NC/AT; PERRLA with EOMI; [place] conjunctiva, MMM. Neck: Supple and nontender Cardiac: RRR Lungs: CTA bilaterally Abdomen: Bowel normoactive X 4; Nontender to palpation Extremities: Warm. No edema present Neuro: No focal weakness Skin: No rash Results & Data Laboratory Results 01/01/19 01/01/19 01/01/19 Range/Units 13:00 08:05 06:54 WBC 5.12 (4.8-10.8) K/uL RBC 3.32 L (4.7-6.1) M/uL Hgb 10.4 L (14.0-18.0) g/dL Hct 31.1 L (42-52) % MCV 93.7 (80-100) fL MCH 31.3 (25-34) pg MCHC 33.4 (32-36) g/dL RDW Std Deviation 41.1 (36.4-46.3) fL RDW Coeff of Eric 12.1 (11.5-14.5) % Plt Count 265 (130-400) K/uL MPV 9.2 (7.4-10.4) fL Sodium (136-145) mmol/L Potassium (3.5-5.1) mmol/L Chloride (98-107) mmol/L Carbon Dioxide (21-32) mmol/L Anion Gap (3-11) BUN (7-18) mg/dl Creatinine (0.6-1.4) mg/dl Est Cr Clr Drug Dosing ml/min Est GFR ( Amer) Est GFR (Non-Af Amer) BUN/Creatinine Ratio (10-20) Glucose (70-99) mg/dl POC Glucose 141 H 133 H (70-99) Calcium (8.5-10.1) mg/dl Magnesium (1.8-2.4) mg/dl Total Bilirubin (0.2-1) mg/dl AST (15-37) U/L ALT (12-78) U/L Alkaline Phosphatase (45-117) U/L Total Protein (6.4-8.2) gm/dl Albumin (3.4-5.0) gm/dl Globulin (2.5-4.0) gm/dl Albumin/Globulin Ratio (0.9-2) 01/01/19 01/01/19 01/01/19 Range/Units 06:54 06:17 00:14 WBC (4.8-10.8) K/uL RBC (4.7-6.1) M/uL Hgb (14.0-18.0) g/dL Hct (42-52) % MCV (80-100) fL MCH (25-34) pg MCHC (32-36) g/dL RDW Std Deviation (36.4-46.3) fL RDW Coeff of Eric (11.5-14.5) % Plt Count (130-400) K/uL MPV (7.4-10.4) fL Sodium 140 (136-145) mmol/L Potassium 4.8 (3.5-5.1) mmol/L Chloride 109 H (98-107) mmol/L Carbon Dioxide 22 (21-32) mmol/L Anion Gap 9.0 (3-11) BUN 38 H (7-18) mg/dl Creatinine 2.90 H (0.6-1.4) mg/dl Est Cr Clr Drug Dosing 21.7 ml/min Est GFR ( Amer) 23.3 Est GFR (Non-Af Amer) 20.1 BUN/Creatinine Ratio 13.1 (10-20) Glucose 122 H (70-99) mg/dl POC Glucose 126 H 112 H (70-99) Calcium 8.6 (8.5-10.1) mg/dl Magnesium 1.7 L (1.8-2.4) mg/dl Total Bilirubin 0.3 (0.2-1) mg/dl AST 16 (15-37) U/L ALT 16 (12-78) U/L Alkaline Phosphatase 77 (45-117) U/L Total Protein 6.7 (6.4-8.2) gm/dl Albumin 3.0 L (3.4-5.0) gm/dl Globulin 3.7 (2.5-4.0) gm/dl Albumin/Globulin Ratio 0.8 L (0.9-2) 12/31/18 12/31/18 Range/Units 20:55 17:07 WBC (4.8-10.8) K/uL RBC (4.7-6.1) M/uL Hgb (14.0-18.0) g/dL Hct (42-52) % MCV (80-100) fL MCH (25-34) pg MCHC (32-36) g/dL RDW Std Deviation (36.4-46.3) fL RDW Coeff of Eric (11.5-14.5) % Plt Count (130-400) K/uL MPV (7.4-10.4) fL Sodium (136-145) mmol/L Potassium (3.5-5.1) mmol/L Chloride (98-107) mmol/L Carbon Dioxide (21-32) mmol/L Anion Gap (3-11) BUN (7-18) mg/dl Creatinine (0.6-1.4) mg/dl Est Cr Clr Drug Dosing ml/min Est GFR ( Amer) Est GFR (Non-Af Amer) BUN/Creatinine Ratio (10-20) Glucose (70-99) mg/dl POC Glucose 178 H 113 H (70-99) Calcium (8.5-10.1) mg/dl Magnesium (1.8-2.4) mg/dl Total Bilirubin (0.2-1) mg/dl AST (15-37) U/L ALT (12-78) U/L Alkaline Phosphatase (45-117) U/L Total Protein (6.4-8.2) gm/dl Albumin (3.4-5.0) gm/dl Globulin (2.5-4.0) gm/dl Albumin/Globulin Ratio (0.9-2)
[2019-01-01] MEDS: MAGNESIUM SULFATE / D5W 1 GM/100 ML BAG IV SCH ×2 (14:04→15:20)
[2019-01-01] MEDS ORDERED: Nursing to Pharmacy Communication ONE (14:09)
--- NOTE | 2019-01-01 15:05 | Pharmacy Report ---
Pharmacy Glycemic Short Note 2 - Date of Service January 01, 2019 - Glycemic Short BSG Results (Last 24 hours): 12/31/18 12/31/18 01/01/19 17:07 20:55 00:14 Glucose POC Glucose 113 H 178 H 112 H 01/01/19 01/01/19 01/01/19 06:17 06:54 08:05 Glucose 122 H POC Glucose 126 H 133 H 01/01/19 13:00 Glucose POC Glucose 141 H OUTPATIENT ANTIDIABETIC REGIMEN: * Metformin * Januvia * Amaryl ASSESSMENT: 3-5: * Patient received total of 14 units of insulin yesterday, no basal just correctional * Patient NPO for uretal stent placement. Patient back to room this afternoon - correctional insulin given around 1400 for lunchtime * Dexamethasone 4 mg iv overrode from omni - verified with nurse from PACU that this dose was administered * Anticipate steroid induced hyperglycemia from dexamethasone - will order basal insulin dose for dinner and tighten CF/CR 3-4: * Patient received total of 14 units of insulin yesterday, no basal needed * Fasting BSG within range this am at 104 mg/dL - will continue with basal scale for this evening with parameters if BSGs increase * Yesterday lunchtime BSG went from 188 mg/dL to 76 mg/dL with dinner after receiving 9 units of correction - feel that CR may be too aggressive at this time therefore will loosen to 12 today * Lunchtime BSG today with modified CR at 115 mg/dL - will continue to follow and trend 3-3: * 78yo T2M male with adequate outpatient diabetes control based on age/commodities. Goal A1c is likely <8 % * Pt with hypoglycemia on admission secondary to KEE and sulfonylurea. Sulfonylureas lead to LONG STANDING hypo with KEE. Scr trending downward. * Last episode of hypoglycemia was 3/3 AM; 66 mg/dL. BSG improved to 188 mg/dL by lunchtime. * Will start a conservative dose of basal insulin to be given at bedtime if BSG remains 180 mg/dL or greater. PLAN FOR INPATIENT GLYCEMIC CONTROL: * Holding outpatient oral diabetes medications * Basal insulin * Lantus 15 units x 1 with dinner (~0.2 units/kg) * Bolus insulin - tighten / overnight checks * NovoLog per scale ACHS or Q6hrs while NPO * Goal Range: Low 110 mg/dL - High 140 mg/dL * Correction Factor: 25 mg/dL/unit * Nutritional / Prandial insulin per carb ratio of 1 unit per 10 grams CHO consumed DISCHARGE PLAN: * Scr continues to improve, however would recommend further improvement back to patient's baseline Scr before restarting oral agents at this time. Sulfonylureas lead to long standing hypoglycemia in KEE. Will continue to follow. thank you
[2019-01-01] MEDS ORDERED: INSULIN GLARGINE SOLOSTAR 100 UNITS/ML 3 ML PEN SC SCH ×2 (16:30)
[2019-01-02] MEDS: INSULIN ASPART 100 UNITS/ML 3 ML PEN SC SCH ×6 (00:12→20:43)
[2019-01-02] MEDS: LEVOTHYROXINE SODIUM 100 MCG TABLET PO SCH (06:16)
[2019-01-02 06:45] LABS: Hematocrit (blood only) 31.4 % (42-52); Hemoglobin 10.5 g/dL (14.0-18.0); Mean Corpuscular Hgb Conc 33.4 g/dL (32-36); Mean Corpuscular Volume 93.7 fL (80-100); Mean Platelet Volume 8.9 fL (7.4-10.4); Platelet Count 251 K/uL (130-400); RDW Coefficient of Variation 12.1 % (11.5-14.5); Red Blood Count 3.35 M/uL (4.7-6.1); White Blood Count 5.88 K/uL (4.8-10.8)
[2019-01-02 07:20] LABS: BUN Creatinine Ratio 14.4 (10-20); Calcium 8.5 mg/dl (8.5-10.1); Creatinine Clr Calc Pharmacy 27.2 ml/min; Est GFR (African American) 30.7; Est GFR (Non-African American) 26.5; Potassium 4.4 mmol/L (3.5-5.1)
--- NOTE | 2019-01-02 07:28 | XRay Report ---
XR KUB CLINICAL HISTORY: 78 years-old Male presenting with s/p L stent, ? stone fragmentation in kidney. TECHNIQUE: Single supine view of the abdomen was obtained. COMPARISON: 01/01/[address] from 12/29/2018. FINDINGS: Nonobstructive bowel gas pattern. No gross pneumoperitoneum. Interval placement of a left ureteral stent. The previously noted calculus along the course of the pr oximal right ureter is not well appreciated and may no longer be present. Punctate lower pole bilater al renal calculi not appreciated by radiograph. Left hemipelvic surgical clip noted. Few pelvic phleb oliths unchanged. Degenerative changes of the spine. Lung bases clear. IMPRESSION: 1. Interval placement of a left ureteral stent. Left ureteral calculus not appreciated on this radio graph. Electronically signed by: Ricardo Erickson M.D. 01/02/2019 7:26 AM
[2019-01-02] MEDS: TAMSULOSIN HCL 0.4 MG CAP PO SCH (08:16)
[2019-01-02] MEDS: AMLODIPINE BESYLATE 5 MG TAB PO SCH (09:11)
--- NOTE | 2019-01-02 09:23 | Anesthesiology Progress Note ---
Date of Service January 02, 2019 Anesthesia Post Procedure Vital Signs Vital Signs: Temp Pulse Pulse Resp BP BP Pulse Ox 01/02/19 08:26 194/81 H 196/89 H 01/02/19 08:18 156/75 H 01/02/19 07:29 36.5 C 68 18 180/80 H 98 01/02/19 03:50 162/73 H 01/01/19 23:14 36.6 C 64 16 178/83 H 95 01/01/19 20:21 36.8 C 83 16 127/74 95 01/01/19 16:45 37.3 C 75 16 159/74 H 92 01/01/19 15:45 36.7 C 69 16 164/70 H 94 01/01/19 14:40 70 18 145/70 H 96 01/01/19 14:16 70 18 151/84 H 94 01/01/19 13:45 36.7 C 62 18 177/77 H 96 01/01/19 13:30 36.4 C L 58 L 18 161/77 H 93 01/01/19 13:20 67 20 149/85 H 94 01/01/19 13:10 64 20 166/77 H 100 01/01/19 13:00 65 21 161/77 H 99 01/01/19 12:53 36.2 C L 69 12 162/79 H 96 01/01/19 10:50 36.7 C 78 20 188/94 H 96 Pain Intensity Left Flank: Pain Intensity: 0 Other: Pain Intensity: 4 Notes Mental Status: alert / awake / arousable and participated in evaluation Patient Amnestic to Procedure: Yes Nausea / Vomiting: adequately controlled Pain: adequately controlled Airway Patency, RR, SpO2: stable & adequate BP & HR: stable & adequate Hydration State: stable & adequate Anesthetic Complications: no major complications apparent and Pt Satisfied with anesthetic care
--- NOTE | 2019-01-02 10:06 | Pharmacy Report ---
Pharmacy Glycemic Short Note 2 - Date of Service January 02, 2019 - Glycemic Short BSG Results (Last 24 hours): 01/01/19 01/01/19 01/01/19 13:00 17:23 20:54 Glucose POC Glucose 141 H 228 H 204 H 01/02/19 01/02/19 01/02/19 00:03 03:52 05:49 Glucose 111 H POC Glucose 167 H 129 H 01/02/19 08:11 Glucose POC Glucose 102 H OUTPATIENT ANTIDIABETIC REGIMEN: * Metformin * Januvia * Amaryl ASSESSMENT: 3-6: * Patient received total of 26 units of insulin yesterday, 12 units of which were basal - more insulin required yesterday vs. previous days due to patient receiving steroids in OR yesterday; Fasting this am acceptable at 111 mg/dL, will hold basal dosing * Anticipate steroids to wear off this morning - will adjust back to previous CF/CR for this morning of CF 30 and CR of 12 * Of note, patient did refuse insulin per nurse comments from this morning - lunchtime BSG elevated at 173 mg/dL, patient did get correctional insulin for lunch. Will continue to trend - previous days suggest this CF/CR is appropriate for patient 3-5: * Patient received total of 14 units of insulin yesterday, no basal just correctional * Patient NPO for uretal stent placement. Patient back to room this afternoon - correctional insulin given around 1400 for lunchtime * Dexamethasone 4 mg iv overrode from omni - verified with nurse from PACU that this dose was administered * Anticipate steroid induced hyperglycemia from dexamethasone - will order basal insulin dose for dinner and tighten CF/CR 3-4: * Patient received total of 14 units of insulin yesterday, no basal needed * Fasting BSG within range this am at 104 mg/dL - will continue with basal scale for this evening with parameters if BSGs increase * Yesterday lunchtime BSG went from 188 mg/dL to 76 mg/dL with dinner after receiving 9 units of correction - feel that CR may be too aggressive at this time therefore will loosen to 12 today * Lunchtime BSG today with modified CR at 115 mg/dL - will continue to follow and trend 3-3: * 78yo T2M male with adequate outpatient diabetes control based on age/commodities. Goal A1c is likely <8 % * Pt with hypoglycemia on admission secondary to KEE and sulfonylurea. Sulfonylureas lead to LONG STANDING hypo with KEE. Scr trending downward. * Last episode of hypoglycemia was 3/3 AM; 66 mg/dL. BSG improved to 188 mg/dL by lunchtime. * Will start a conservative dose of basal insulin to be given at bedtime if BSG remains 180 mg/dL or greater. PLAN FOR INPATIENT GLYCEMIC CONTROL: * Holding outpatient oral diabetes medications * Basal insulin * holding * Bolus insulin - loosen back to previous parameters * NovoLog per scale ACHS or Q6hrs while NPO * Goal Range: Low 120 mg/dL - High 160 mg/dL * Correction Factor: 30 mg/dL/unit * Nutritional / Prandial insulin per carb ratio of 1 unit per 12 grams CHO consumed DISCHARGE PLAN: * Scr continues to improve, however would recommend further improvement back to patient's baseline Scr before restarting oral agents at this time. thank you
--- NOTE | 2019-01-02 10:08 | Urology Progress Note ---
Date of Service January 02, 2019 Assessment & Plan (1) Kidney stone: 78yo s/p POD #1 URS, LL, Left ureteral stent placement and left balloon dilation of distal ureter. Afebrile, VSS Pt feeling well, denies ureteral stent irritation. Uneventful evening last night. KUB this AM, stent in good position. No visible renal or ureteral stone fragments appreciated. Cr improved from 2.90 to 2.31 today, with good UO. No further intervention required at this time. Follow-up appointment for stent removal arranged for 01/09 at 09:15AM with Dr. Summers at [facility]. Added to discharge instruction. Thank you for allowing us to participate in the acute care of Mr. Beckwith. Please recontact us with additional questions, concerns or changes in patientn status. Subjective 78yo presented with obs L ureteral stone and KEE, now s/p POD #1 URS, LL, Left ureteral stent placement and left balloon dilation of distal ureter. Pt reports feeling well today. States "I was ripping around her last night." Pain controlled with tylenol. Denies significant stent irritation. Voiding spontaneously, some hematuria last evening but now clear yellow. Denies urgency/frequency. Tolerating PO diet. Denies f/c/n/v. Physical Exam Vital Signs (Past 24 Hours): Last Vital Signs Temp 36.5 C 01/02/19 07:29 Pulse 68 01/02/19 07:29 Resp 18 01/02/19 07:29 BP 194/81 H 01/02/19 08:26 Pulse Ox 98 01/02/19 07:29 Physical Exam: A&Ox3 RRR no jvd, no edema abd soft, nontender no suprapubic tenderness Results & Data Laboratory Results Laboratory Results - last 48 hr 12/31/18 12/31/18 12/31/18 11:57 17:07 20:55 WBC RBC Hgb Hct MCV MCH MCHC RDW Std Deviation RDW Coeff of Eric Plt Count MPV Sodium Potassium Chloride Carbon Dioxide Anion Gap BUN Creatinine Est Cr Clr Drug Dosing Est GFR ( Amer) Est GFR (Non-Af Amer) BUN/Creatinine Ratio Glucose POC Glucose 115 H 113 H 178 H Calcium Magnesium Total Bilirubin AST ALT Alkaline Phosphatase Total Protein Albumin Globulin Albumin/Globulin Ratio 01/01/19 01/01/19 01/01/19 00:14 06:17 06:54 WBC RBC Hgb Hct MCV MCH MCHC RDW Std Deviation RDW Coeff of Eric Plt Count MPV Sodium 140 Potassium 4.8 Chloride 109 H Carbon Dioxide 22 Anion Gap 9.0 BUN 38 H Creatinine 2.90 H Est Cr Clr Drug Dosing 21.7 Est GFR ( Amer) 23.3 Est GFR (Non-Af Amer) 20.1 BUN/Creatinine Ratio 13.1 Glucose 122 H POC Glucose 112 H 126 H Calcium 8.6 Magnesium 1.7 L Total Bilirubin 0.3 AST 16 ALT 16 Alkaline Phosphatase 77 Total Protein 6.7 Albumin 3.0 L Globulin 3.7 Albumin/Globulin Ratio 0.8 L 01/01/19 01/01/19 01/01/19 06:54 08:05 13:00 WBC 5.12 RBC 3.32 L Hgb 10.4 L Hct 31.1 L MCV 93.7 MCH 31.3 MCHC 33.4 RDW Std Deviation 41.1 RDW Coeff of Eric 12.1 Plt Count 265 MPV 9.2 Sodium Potassium Chloride Carbon Dioxide Anion Gap BUN Creatinine Est Cr Clr Drug Dosing Est GFR ( Amer) Est GFR (Non-Af Amer) BUN/Creatinine Ratio Glucose POC Glucose 133 H 141 H Calcium Magnesium Total Bilirubin AST ALT Alkaline Phosphatase Total Protein Albumin Globulin Albumin/Globulin Ratio 01/01/19 01/01/19 01/02/19 17:23 20:54 00:03 WBC RBC Hgb Hct MCV MCH MCHC RDW Std Deviation RDW Coeff of Eric Plt Count MPV Sodium Potassium Chloride Carbon Dioxide Anion Gap BUN Creatinine Est Cr Clr Drug Dosing Est GFR ( Amer) Est GFR (Non-Af Amer) BUN/Creatinine Ratio Glucose POC Glucose 228 H 204 H 167 H Calcium Magnesium Total Bilirubin AST ALT Alkaline Phosphatase Total Protein Albumin Globulin Albumin/Globulin Ratio 01/02/19 01/02/19 01/02/19 03:52 05:49 05:49 WBC 5.88 RBC 3.35 L Hgb 10.5 L Hct 31.4 L MCV 93.7 MCH 31.3 MCHC 33.4 RDW Std Deviation 41.0 RDW Coeff of Eric 12.1 Plt Count 251 MPV 8.9 Sodium 140 Potassium 4.4 Chloride 110 H Carbon Dioxide 24 Anion Gap 6.0 BUN 33 H Creatinine 2.31 H D Est Cr Clr Drug Dosing 27.2 Est GFR ( Amer) 30.7 Est GFR (Non-Af Amer) 26.5 BUN/Creatinine Ratio 14.4 Glucose 111 H POC Glucose 129 H Calcium 8.5 Magnesium 2.0 Total Bilirubin AST ALT Alkaline Phosphatase Total Protein Albumin Globulin Albumin/Globulin Ratio 01/02/19 08:11 WBC RBC Hgb Hct MCV MCH MCHC RDW Std Deviation RDW Coeff of Eric Plt Count MPV Sodium Potassium Chloride Carbon Dioxide Anion Gap BUN Creatinine Est Cr Clr Drug Dosing Est GFR ( Amer) Est GFR (Non-Af Amer) BUN/Creatinine Ratio Glucose POC Glucose 102 H Calcium Magnesium Total Bilirubin AST ALT Alkaline Phosphatase Total Protein Albumin Globulin Albumin/Globulin Ratio
--- NOTE | 2019-01-02 18:47 | Hospitalist Progress Note ---
Date of Service January 02, 2019 Assessment & Plan (1) Kidney stone: - CT A/P showed obstructing calculus of proximal left ureter with mild left hydronephrosis. - Renal US on 12/31/18 showed mild to moderate left sided hydronephrosis with 7 mm calculus. - KUB after admission showed no change in location of calculus. - Urology consulted, appreciate input-now S/p ureteroscopy, left laser lithotripsy and left stent placement on 01/01 - Idc IVFs - continue Flomax 0.4 mg qAM. -f/u with Urol in 1 week for stent removal (2) Hydronephrosis: - Noted on CT of A/P and renal US. 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 - continue SSI; pharmacy consulted for glycemic management. - Last A1C was 7.6% on 12/30/18 (5) History of prostate cancer: - Hx of such 10 years ago, stable. (6) Hypothyroidism: - Continue levothyroxine 100 mg daily. - TSH was 4.7 in Nov 2018 f/u with PCP (7) HLD (hyperlipidemia): - Not on statin therapy. (8) Anemia: - Hgb decreased, ~10-11. Likely related to aggressive IV fluids/hemodilution -STbale -no need to repeat CBC (9) Elevated BP without diagnosis of hypertension: - BP has been elevated, moreso today in the 190s systolic, asymptomatic - May be related to IV fluids vs. acute pain vs. anxiety. - added amlodipine 5mg daily today and this evening much improved -continue amlodipine 5mg daily and follow BPs (10) Hypomagnesemia: -repplaced and resolved (11) DVT prophylaxis: - SCDS, no chemical prophy due to recent procedure and risk for bleeding Dispo: stable for dc today but doesn't have a ride home this evening--> plan to dc in the AM if BPs ok and renal function continues to improve Subjective Feeling great, no pain after receiving tylenol. No headache, no N/V, no abd pain, no flank pain, denies CP or SOB. He is ambulating, making urine, and had a BM today Discussed the case with Dr. Summers of Uroogy-said stable for dc from his standpoint. BPs significantly elevated this AM Review of Systems All systems reviewed & are unremarkable except as noted in HPI & below Physical Exam Vital Signs (Past 24 Hours): Last Vital Signs Temp 36.8 C 01/02/19 15:15 Pulse 85 01/02/19 15:15 Resp 18 01/02/19 15:15 BP 118/69 01/02/19 15:15 Pulse Ox 95 01/02/19 15:15 Constitutional: WD/WN, vitals as above Eyes: PERRL, conjunctivae normal, anicteric sclerae ENMT: external ear and nose normal, oropharynx normal Neck: trachea midline, no thyromegaly Respiratory: normal respiratory effort, lungs clear to auscultation Cardiovascular: RRR, no murmur, no edema Gastrointestinal (Abdomen): normal bowel sounds, soft, nontender, no hepatosplenomegaly Musculoskeletal: Extremities: extremities normal to inspection; no cyanosis and no clubbing Skin: no rashes, warm and dry Neurologic: moves all extremities and awake; no focal motor deficits Psychiatric: A+Ox3, euthymic affect Results & Data Laboratory Results 01/02/19 01/02/19 01/02/19 Range/Units 17:01 11:55 08:11 WBC (4.8-10.8) K/uL RBC (4.7-6.1) M/uL Hgb (14.0-18.0) g/dL Hct (42-52) % MCV (80-100) fL MCH (25-34) pg MCHC (32-36) g/dL RDW Std Deviation (36.4-46.3) fL RDW Coeff of Eric (11.5-14.5) % Plt Count (130-400) K/uL MPV (7.4-10.4) fL Sodium (136-145) mmol/L Potassium (3.5-5.1) mmol/L Chloride (98-107) mmol/L Carbon Dioxide (21-32) mmol/L Anion Gap (3-11) BUN (7-18) mg/dl Creatinine (0.6-1.4) mg/dl Est Cr Clr Drug Dosing ml/min Est GFR ( Amer) Est GFR (Non-Af Amer) BUN/Creatinine Ratio (10-20) Glucose (70-99) mg/dl POC Glucose 201 H 173 H 102 H (70-99) Calcium (8.5-10.1) mg/dl Magnesium (1.8-2.4) mg/dl 01/02/19 01/02/19 01/02/19 Range/Units 05:49 05:49 03:52 WBC 5.88 (4.8-10.8) K/uL RBC 3.35 L (4.7-6.1) M/uL Hgb 10.5 L (14.0-18.0) g/dL Hct 31.4 L (42-52) % MCV 93.7 (80-100) fL MCH 31.3 (25-34) pg MCHC 33.4 (32-36) g/dL RDW Std Deviation 41.0 (36.4-46.3) fL RDW Coeff of Eric 12.1 (11.5-14.5) % Plt Count 251 (130-400) K/uL MPV 8.9 (7.4-10.4) fL Sodium 140 (136-145) mmol/L Potassium 4.4 (3.5-5.1) mmol/L Chloride 110 H (98-107) mmol/L Carbon Dioxide 24 (21-32) mmol/L Anion Gap 6.0 (3-11) BUN 33 H (7-18) mg/dl Creatinine 2.31 H D (0.6-1.4) mg/dl Est Cr Clr Drug Dosing 27.2 ml/min Est GFR ( Amer) 30.7 Est GFR (Non-Af Amer) 26.5 BUN/Creatinine Ratio 14.4 (10-20) Glucose 111 H (70-99) mg/dl POC Glucose 129 H (70-99) Calcium 8.5 (8.5-10.1) mg/dl Magnesium 2.0 (1.8-2.4) mg/dl 01/02/19 01/01/19 Range/Units 00:03 20:54 WBC (4.8-10.8) K/uL RBC (4.7-6.1) M/uL Hgb (14.0-18.0) g/dL Hct (42-52) % MCV (80-100) fL MCH (25-34) pg MCHC (32-36) g/dL RDW Std Deviation (36.4-46.3) fL RDW Coeff of Eric (11.5-14.5) % Plt Count (130-400) K/uL MPV (7.4-10.4) fL Sodium (136-145) mmol/L Potassium (3.5-5.1) mmol/L Chloride (98-107) mmol/L Carbon Dioxide (21-32) mmol/L Anion Gap (3-11) BUN (7-18) mg/dl Creatinine (0.6-1.4) mg/dl Est Cr Clr Drug Dosing ml/min Est GFR ( Amer) Est GFR (Non-Af Amer) BUN/Creatinine Ratio (10-20) Glucose (70-99) mg/dl POC Glucose 167 H 204 H (70-99) Calcium (8.5-10.1) mg/dl Magnesium (1.8-2.4) mg/dl (1) Hydronephrosis Hydronephrosis type: with ureteral calculous obstruction Qualified Code(s): N13.2 - Hydronephrosis with renal and ureteral calculous obstruction (2) DM II (diabetes mellitus, type II), controlled 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
[2019-01-03] MEDS: LEVOTHYROXINE SODIUM 100 MCG TABLET PO SCH (05:34)
[2019-01-03 07:48] LABS: Calcium 8.8 mg/dl (8.5-10.1); Creatinine Clr Calc Pharmacy 29.8 ml/min; Est GFR (African American) 34.2; Est GFR (Non-African American) 29.5; Potassium 4.4 mmol/L (3.5-5.1)
[2019-01-03] MEDS: INSULIN ASPART 100 UNITS/ML 3 ML PEN SC SCH ×2 (08:55→13:08)
[2019-01-03] MEDS: AMLODIPINE BESYLATE 5 MG TAB PO SCH (09:44)
[2019-01-03] MEDS: TAMSULOSIN HCL 0.4 MG CAP PO SCH (09:44)
--- NOTE | 2019-01-03 11:10 | Discharge Summary ---
Date of Service January 03, 2019 Admission HPI Per Admitting Provider This is a 78 yo M with PMHX of DM II on oral agents, HLD, hx of prostate cancer 10 years ago, osteoporosis and nephrolithiasis who presents with acute onset of left sided flank pain x 2 days. Pt notes about 2 night ago he developed sharp constant pain, nausea with dry heaves, and passed a small kidney stone (which he brought with him into the ER.) Since then he still has had pain unrelieved with tylenol at home. His urine has been clear, no hematuria. Pt denies fever, chills or sweats. He reports hx of requiring surgery and lithotripsy for nephrolithiasis previously. Pt received pain medication in the ER and reports complete relief of pain currently. Cr. is acutely bumped at 3.16. CT scan demonstrates a 3.5 mm obstructing calculus proximal left ureter and mild left hydronephrosis. Principal Diagnosis Left ureterolithiasis Acute kidney injury Discharge Exam Constitutional WD/WN, vitals as above Eyes PERRL, conjunctivae normal, anicteric sclerae ENMT external ear and nose normal, oropharynx normal Neck trachea midline, no thyromegaly Respiratory normal respiratory effort, lungs clear to auscultation Cardiovascular RRR, no murmur, no edema Gastrointestinal (Abdomen) normal bowel sounds, soft, nontender, no hepatosplenomegaly Musculoskeletal Extremities: extremities normal to inspection; no cyanosis and no clubbing Skin no rashes, warm and dry Neurologic moves all extremities and awake; no focal motor deficits Psychiatric A+Ox3, euthymic affect Discharge Data Allergies Allergy/AdvReac Type Severity Reaction Status Date / Time No Known Allergies Allergy Unknown Verified 12/29/18 13:55 Consultations 12/29/18 13:44 ED Decision to Admit Stat 12/29/18 15:13 Consult Case Management - Discharge Planning Routine Consult Urology Routine Procedures Performed Operation Date: 01/01/19 10:20 Actual Procedures p Cystoscopy, Left Retrograde Pyelogram, Possible Laser Lithotripsy, Possible Ureteroscopy, Possible Basket Stone Extraction; Stent Placement - Jose Summers MD Ordered Studies 12/29/18 12:53 CT abd pelvis wo con Stat 12/31/18 10:01 US renal/blad retro comp Urgent 01/01/19 11:00 FL retrograde includes kub Routine Hospital Course (1) Kidney stone: - CT A/P showed obstructing calculus of proximal left ureter with mild l eft hydronephrosis. - Renal US on 12/31/18 showed mild to moderate left sided hydronephrosis with 7 mm calculus. - KUB after admission showed no change in location of calculus. - Urology consulted, appreciate input-now S/p ureteroscopy, left laser lithotripsy and left stent placement on 01/01 - continue Flomax 0.4 mg qAM after discharge -f/u with Urol in 1 week for stent removal (2) Hydronephrosis: - Noted on CT of A/P and renal US. 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 - Last A1C was 7.6% on 12/30/18 restart glimiperide and januvia on dc but hold metformin tilll renal function improves (5) History of prostate cancer: - Hx of such 10 years ago, stable. (6) Hypothyroidism: - Continue levothyroxine 100 mg daily. - TSH was 4.7 in Nov 2018 f/u with PCP (7) HLD (hyperlipidemia): - Not on statin therapy. (8) Anemia: - Hgb decreased, ~10-11. Likely related to aggressive IV fluids/hemodilution -Stable -no need to repeat CBC (9) Elevated BP without diagnosis of hypertension: - BP has been elevated, at times in the 190s systolic, asymptomatic - May be related to IV fluids vs. acute pain vs. anxiety. - added amlodipine 5mg daily and was much improved, now pt refusing meds as BPs normally fine--he will check BPs at home and f/u with PCP BP 150s on day of dc (10) Hypomagnesemia: -replaced and resolved (11) DVT prophylaxis: - SCDS, no chemical prophy due to recent procedure and risk for bleeding Dispo: stable for dc today Total Time Total Time Spent Total Time Spent (In Minutes): >30 min Total Time Includes: Examination of the Patient, Discharge Planning and Medication Reconciliation Discharge Plan Discharge Items Patient Disposition: Home - Self-Care Reason For Visit: LEFT NEPHROLITHIASIS, HYDRONEPHROSIS Discharge Diagnosis: Left ureterolithiasis, Acute kidney injury Condition: Good Discharge Goals: Decrease discomfort, Diagnostic testing, Learn about illness and Therapeutic intervention Activity: Resume your previous activity Lifting: Gradually increase as tolerated Bathing: No limitations Non-emergency contact: Primary Care Provider and Urologist Call non-emergency contact if: you have any medication questions, your symptoms worsen, your pain is not controlled, your pain is worsening, your pain is unusual for you, your pain is concerning for you and your temperature is above 101 Follow-up/Referrals: Jose Summers MD [Physician] - ( 01/09/19 at 09:15AM with Dr. Summers for stent removal) Waqar Akins III, MD [Primary Care Provider] - 01/09/19 1:50 pm (Please, follow up with Dr. Akins on MondayJanuary 09 at 1:50 pm. *If you need to change this appointment, call the office at [phone].) Diet: Carb Consistent or DM2 and Heart Healthy Other Ambulatory Orders: Basic Metabolic Panel (Routine) Timeframe: 1 Day Location: Determined by Patient Ordered By: Sharon Petersentl Provider Instructions: You were admitted with a kidney stone and had a stent placed. You had some issues with renal failure due to your kidney stone and this is improving but you should have your kidney blood work checked again in 1-2 days. You should NOT take your metformin until your kidney function returns to normal. Your doctor can tell you when it is safe to start back on your metformin. Please keep an eye on your blood pressure at home. It was elevated here and you were given medication for this, but then it improved off medication. Please follow up with your PCP and Urology as scheduled for you. Prescriptions: New acetaminophen [Mapap (acetaminophen)] 325 mg Tablet 650 mg PO Q4H PRN (Reason: pain) Qty: 30 RF: 0 tamsulosin 0.4 mg Capsule 0.4 mg PO QAM Qty: 7 RF: 0 Continued levothyroxine 100 mcg tablet 100 mg PO DAILY RF: 0 glimepiride 4 mg tablet 4 mg PO BID RF: 0 Januvia 100 mg tablet 100 mg PO DAILY RF: 0 Discontinued metformin 500 mg tablet 500 mg PO QDL RF: 0 metformin 500 mg tablet 1,000 mg PO HS RF: 0 metformin 500 mg tablet 1,000 mg PO QAM RF: 0 Stand-Alone Forms: [facility]/Other Patient Handouts: Stents Ureteral Discharge Orders: Discharge Order (Routine); Ordered 01/03/19 Ordered By: Sharon Wing Admission Data Admit Date/Time: 12/29/18 14:01 Attending Provider: Sharon Wing Admit Provider: Denton Leggett Primary Care Provider: Waqar Akins III Other Providers: Denton Leggett ; Alvarez Callejas II Service: Medical Other Pending Studies at Discharge: No
== END 2019-01-03 13:51 | disposition home or self-care (01) | DRG 661 ==
LOC: ED 12:37 → SUATTDRO 14:01 → 3W 14:01

== ENCOUNTER 2022-04-06 09:27 | Inpatient (IN) ==
[2022-04-06] MEDS ORDERED: SODIUM CHLORIDE 0.9% 1000ML 1,000 ML IV ONE (09:47)
[2022-04-06 10:27] LABS: Appearance Urine Clear (Clear); Bilirubin Urine Negative (Negative); Blood Urine Negative (Negative); Color Urine Yellow; Glucose Urine UA 3+ (Negative); Ketones Urine Negative (Negative); Leukocyte Esterase Urine Negative (Negative); Nitrite Urine Negative (Negative); Protein Urine Negative (Negative); Urobilinogen Urine Negative (Negative)
[2022-04-06 10:34] LABS: Basophils # (auto) 0.02 K/uL (0-0.2); Basophils % (auto) 0.3 %; Eosinophils % (auto) 1.5 %; Hematocrit (blood only) 44.6 % (42-52); Hemoglobin 15.2 g/dL (14.0-18.0); Immature Granulocytes # (auto) 0.01 K/uL (0.00-0.02); Immature Granulocytes % (auto) 0.2 %; Lymphocytes # (auto) 0.92 K/uL (1.2-3.4); Mean Corpuscular Hemoglobin 31.5 pg (25-34); Mean Corpuscular Hgb Conc 34.1 g/dL (32-36); Mean Corpuscular Volume 92.3 fL (80-100); Mean Platelet Volume 10.4 fL (7.4-10.4); Monocytes # (auto) 0.49 K/uL (0.11-0.59); Monocytes % (auto) 7.5 %; Neutrophils # (auto) 5.01 K/uL (1.4-6.5); Neutrophils % (auto) 76.5 %; Platelet Count 194 K/uL (130-400); RDW Coefficient of Variation 12.4 % (11.5-14.5); RDW Standard Deviation 41.7 fL (36.4-46.3); Red Blood Count 4.83 M/uL (4.7-6.1); White Blood Count 6.55 K/uL (4.8-10.8)
--- NOTE | 2022-04-06 10:39 | Emergency Department Note ---
History of Present Illness General Chief complaint: Hyperglycemia Stated complaint: hyperglycemia, dr sent Time Seen by Provider: 04/06/22 09:43 History of Present Illness Provider complaint: Hyperglycemia Onset (ago): day(s) 3 81-year-old male presents emergency department for hyperglycemia. Patient states he has had high blood sugars for the last 3 days. He states his blood sugar monitor read high. Patient reports increased thirst and polyuria. Patient reports no abdominal pain or vomiting. Patient reports he recently had his diabetes medications changed and was started on Trulicity which she does not think is working well for him. Home Medications Medication Instructions Recorded Confirmed Type lancets (OneTouch UltraSoft #100 ea 08/19/19 02/09/22 Rx Lancets) blood sugar diagnostic #300 ea NS 07/01/21 02/09/22 Rx pen needle, diabetic 32 gauge x #300 ea 07/14/21 02/09/22 Rx 1/4" (BD Ultra-Fine Micro Pen Needle) glimepiride 4 mg tablet 4 mg PO BID #180 tab 08/02/21 04/06/22 Rx dulaglutide 0.75 mg/0.5 mL 0.75 mg SUBCUT WK 04/06/22 04/06/22 History subcutaneous pen injector (Trulicity) levothyroxine 112 mcg tablet 112 mcg PO DAILYBB 04/06/22 04/06/22 History Allergies Allergy/AdvReac Type Severity Reaction Status Date / Time No Known Allergies Allergy Unknown Verified 02/09/22 06:49 Past Med/Surg History Medical History Anemia DM II (diabetes mellitus, type II), controlled IDDM History of COVID-19 08/2020 - no hospitalization. no current symptoms History of nephrolithiasis History of prostate cancer 15 years ago; surgery + radiation HLD (hyperlipidemia) Hypothyroidism Osteopenia Surgical History History of cataract surgery RT History of colonoscopy History of lithotripsy History of nephrolithotomy with removal of calculi History of prostate biopsy History of prostate surgery S/P trigger finger release Family History Other CHF (congestive heart failure) Cardiac pacemaker in situ DM II (diabetes mellitus, type II), controlled Nephrolithiasis No family history of adverse response to anesthesia No pertinent family history Prostate cancer Denies family history of Breast cancer Colorectal cancer Social History Smoking Status: Never smoker Second Hand Exposure: No; Hx Alcohol Use: No Hx Substance Use: No Preferred Language: Austrian Communication Ability: Effective Hearing Ability: Normal 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 Beliefs That Will Affect Care: None marital status: / Current Living Situation: Alone Feels Safe at Home: Yes Assistive Devices: Denture - Upper and Glasses Review of Systems A total of 10 systems reviewed and were otherwise negative Physical Exam Vital Signs Vital Signs - 24 hr 04/06/22 09:30 04/06/22 10:00 04/06/22 10:01 Temperature 36.4 C L Temperature Source Temporal Artery Scan Pulse Rate 89 77 Pulse Rate from SpO2 Sensor 78 Respiratory Rate 18 23 Respiratory Effort / Characteristics Non-Labored Respiratory Depth Normal Respiratory Pattern Regular Blood Pressure 138/80 155/83 H Blood Pressure Mean 99 107 Pulse Oximetry 97 98 Oxygen Delivery Method Room Air Sepsis Recent Fever Within 48 Hours No Sepsis New/Unexplained Change in Mental Status No Sepsis Action Taken by Nursing No Action Required 04/06/22 10:10 Temperature Temperature Source Pulse Rate 76 Pulse Rate from SpO2 Sensor 75 Respiratory Rate 22 Respiratory Effort / Characteristics Respiratory Depth Respiratory Pattern Blood Pressure Blood Pressure Mean Pulse Oximetry 99 Oxygen Delivery Method Sepsis Recent Fever Within 48 Hours Sepsis New/Unexplained Change in Mental Status Sepsis Action Taken by Nursing Physical Exam GENERAL: He is oriented to person, place, and time. He appears well-developed and well-nourished. He does not appear distressed. HENT: Exam performed. - Head: Normocephalic and atraumatic. - Right Ear: External ear normal. No mastoid tenderness. - Left Ear: External ear normal. No mastoid tenderness. - Mouth/Throat: The oropharynx is clear and moist. No trismus in the jaw. No dental abscesses or uvula swelling. No oropharyngeal exudate or tonsillar abscesses. EYES: Conjunctivae and EOM are normal. Pupils are equal, round, and reactive to light. Right eye exhibits no discharge. Left eye exhibits no discharge. No scleral icterus. NECK: Normal range of motion. Neck supple. No JVD present. No spinous process tenderness present. No carotid bruit present. No rigidity. No tracheal deviation and normal range of motion present. No Brudzinski's sign and no Kernig's sign noted. CV: Normal rate, regular rhythm, normal heart sounds and intact distal pulses. There is no peripheral edema. Palpable radial pulses bue. PULM/CHEST: Effort normal and breath sounds normal. No respiratory distress. No stridor. He has no wheezes. He has no rales. - Chest Wall: He exhibits no tenderness. ABD: The abdomen is soft. Bowel sounds are normal. He has no distension. No mass is present. There is no tenderness. There is no rebound, no guarding, no Benitez's sign and no tenderness at McBurney's point. Rovsig negative. MUSC/SKEL: Normal range of motion. There is no peripheral edema, tenderness or deformity. LYMPH: No cervical adenopathy. NEURO: He is alert and oriented to person, place, and time. He has normal strength. No cranial nerve deficit or sensory deficit. Coordination and gait normal. GCS eye subscore is 4. GCS verbal subscore is 5. GCS motor subscore is 6. Cerebellar tests wnl. SKIN: Skin is warm and dry. He is not diaphoretic. PSYCH: He has a normal mood and affect. Behavior is normal. Judgment and thought content normal. Course Course 0943: The patient was evaluated in room B5. A complete history and physical exam was performed Cardiac monitoring: An order was placed for continuous cardiac monitoring. The monitor shows a rate of 90 with sinus rhythm 1133: Vital signs stable. Creatinine at its baseline. Patient anion gap is within normal limits however the patient has an elevated osmolar gap. Patient will be started on insulin drip and continued with IV fluids. Patient will be admitted to the [facility]ist team. Administered Medications Discontinued Medications Sodium Chloride (Nss 1000ml) 1,000 mls @ 999 mls/hr IV .Q1H1M ONE Stop: 04/06/22 10:47 Last Admin: 04/06/22 10:04 Dose: 999 mls/hr Documented by: [id number] Critical Care Time Critical Care Time: Yes Total Critical Care Time: 43 I have personally spent greater than 43 minutes of critical care time in the direct management of this patient. This includes bedside care, interpretation of diagnostic studies, and testing, discussion with consultants, patient, and family members, and other required patient management activities. This 43 minutes is in excess of all separately billable procedures. Medical Decision Making Laboratory Data Result diagrams: 04/06/22 10:01 04/06/22 10:01 Lab Results 04/06/22 04/06/22 04/06/22 Range/Units 09:36 10:01 10:01 WBC 6.55 (4.8-10.8) K/uL RBC 4.83 (4.7-6.1) M/uL Hgb 15.2 (14.0-18.0) g/dL Hct 44.6 (42-52) % MCV 92.3 (80-100) fL MCH 31.5 (25-34) pg MCHC 34.1 (32-36) g/dL RDW Std Deviation 41.7 (36.4-46.3) fL RDW Coeff of Eric 12.4 (11.5-14.5) % Plt Count 194 (130-400) K/uL MPV 10.4 (7.4-10.4) fL Immature Gran % (Auto) 0.2 % Neut % (Auto) 76.5 % Lymph % (Auto) 14.0 % Kidder % (Auto) 7.5 % Eos % (Auto) 1.5 % Baso % (Auto) 0.3 % Neut # (Auto) 5.01 (1.4-6.5) K/uL Lymph # (Auto) 0.92 L (1.2-3.4) K/uL Kidder # (Auto) 0.49 (0.11-0.59) K/uL Eos # (Auto) 0.10 (0-0.5) K/uL Baso # (Auto) 0.02 (0-0.2) K/uL Immature Gran # (Auto) 0.01 (0.00-0.02) K/uL Sodium 129 L (136-145) mmol/L Potassium 4.8 (3.5-5.1) mmol/L Chloride 95 L (98-107) mmol/L Carbon Dioxide 23 (21-32) mmol/L Anion Gap 11 (3-11) BUN 41 H (6-23) mg/dl Creatinine 1.88 H (0.6-1.4) mg/dl Est Cr Clr Drug Dosing 31.9 ml/min Est GFR ( Amer) 38.5 ml/min Est GFR (Non-Af Amer) 33.2 ml/min BUN/Creatinine Ratio 21.8 H (10-20) Glucose 829 H* (70-99(Fasting)) mg/dl POC Glucose > 600 H* (70-99) mg/dl Osmolality (280-300) mOsm/kg Calcium 9.6 (8.5-10.1) mg/dl Lipase 99 H (11-82) U/L Urine Color Urine Appearance (Clear) Urine pH (4.5-7.5) Ur Specific Ironside (1.000-1.030) Urine Protein (Negative) Urine Glucose (UA) (Negative) Urine Ketones (Negative) Urine Blood (Negative) Urine Nitrite (Negative) Urine Bilirubin (Negative) Urine Urobilinogen (Negative) Ur Leukocyte Esterase (Negative) SARS-CoV-2, RNA, NAAT (NEGATIVE) 04/06/22 04/06/22 04/06/22 Range/Units 10:01 10:01 10:12 WBC (4.8-10.8) K/uL RBC (4.7-6.1) M/uL Hgb (14.0-18.0) g/dL Hct (42-52) % MCV (80-100) fL MCH (25-34) pg MCHC (32-36) g/dL RDW Std Deviation (36.4-46.3) fL RDW Coeff of Eric (11.5-14.5) % Plt Count (130-400) K/uL MPV (7.4-10.4) fL Immature Gran % (Auto) % Neut % (Auto) % Lymph % (Auto) % Kidder % (Auto) % Eos % (Auto) % Baso % (Auto) % Neut # (Auto) (1.4-6.5) K/uL Lymph # (Auto) (1.2-3.4) K/uL Kidder # (Auto) (0.11-0.59) K/uL Eos # (Auto) (0-0.5) K/uL Baso # (Auto) (0-0.2) K/uL Immature Gran # (Auto) (0.00-0.02) K/uL Sodium (136-145) mmol/L Potassium (3.5-5.1) mmol/L Chloride (98-107) mmol/L Carbon Dioxide (21-32) mmol/L Anion Gap (3-11) BUN (6-23) mg/dl Creatinine (0.6-1.4) mg/dl Est Cr Clr Drug Dosing ml/min Est GFR ( Amer) ml/min Est GFR (Non-Af Amer) ml/min BUN/Creatinine Ratio (10-20) Glucose (70-99(Fasting)) mg/dl POC Glucose (70-99) mg/dl Osmolality 334 H (280-300) mOsm/kg Calcium (8.5-10.1) mg/dl Lipase (11-82) U/L Urine Color Yellow Urine Appearance Clear (Clear) Urine pH 5.0 (4.5-7.5) Ur Specific Ironside 1.030 (1.000-1.030) Urine Protein Negative (Negative) Urine Glucose (UA) 3+ H (Negative) Urine Ketones Negative (Negative) Urine Blood Negative (Negative) Urine Nitrite Negative (Negative) Urine Bilirubin Negative (Negative) Urine Urobilinogen Negative (Negative) Ur Leukocyte Esterase Negative (Negative) SARS-CoV-2, RNA, NAAT NEGATIVE (NEGATIVE) ECG Data Indication: + weakness Rate (beats per minute): 86 Rhythm: + normal sinus ECG Intervals/blocks: + Normal QRS, + Normal [place] and + Normal QT-c ECG ST segments: + Normal ST segments MDM Narrative Vital signs stable. Creatinine at its baseline. Patient anion gap is within normal limits however the patient has an elevated osmolar gap. Patient will be started on insulin drip and continued with IV fluids. Patient will be admitted to the [facility] hospitalist team. Impression & Plan Hyperosmolar hyperglycemic state (HHS) Discharge Plan Visit Data Chief Complaint: Hyperglycemia Stated Complaint: hyperglycemia, dr sent ED Provider: Sukhwinder Gallagher Discharge Problem: Hyperosmolar hyperglycemic state (HHS) Patient Disposition: Admitted As Inpatient Forms Stand Alone Forms: [facility] Prescriptions Prescriptions: No Action (DME) blood sugar diagnostic Strip See Dose Instructions .ROUTE .MEDSUPPLY Qty: 300 RF: 3 (DME) pen needle, diabetic [BD Ultra-Fine Micro Pen Needle] 32 gauge x 1/4" needle See Dose Instructions .ROUTE .MEDSUPPLY Qty: 300 RF: 3 glimepiride 4 mg tablet 4 mg PO BID Qty: 180 RF: 3 Hold Instructions: Trying Trulicity (DME) lancets [OneTouch UltraSoft Lancets] misc See Dose Instructions .ROUTE .MEDSUPPLY Qty: 100 RF: 5 levothyroxine 112 mcg tablet 112 mcg PO DAILYBB RF: 0 Trulicity 0.75 mg/0.5 mL pen injector 0.75 mg subcut WK RF: 0 Referrals Referrals: Aurea Das CRNP [Primary Care Provider] -
[2022-04-06 10:42] LABS: BUN Creatinine Ratio 21.8 (10-20); Calcium 9.6 mg/dl (8.5-10.1); Creatinine Clr Calc Pharmacy 31.9 ml/min; Est GFR (African American) 38.5 ml/min; Est GFR (Non-African American) 33.2 ml/min; Potassium 4.8 mmol/L (3.5-5.1)
[2022-04-06] MEDS ORDERED: GLUCAGON FOR INJ 1 MG VIAL SQ PRN (11:08)
[2022-04-06] MEDS ORDERED: STAT INSULIN DRIP STA (11:08)
[2022-04-06] MEDS ORDERED: GLUCOSE 40% GEL 15 GM TUBE PO PRN (11:08)
[2022-04-06] MEDS ORDERED: GLUCOSE 10 TABS/TUBE PO PRN (11:08)
[2022-04-06] MEDS ORDERED: DEXTROSE 50% 50 ML SYRINGE IV PRN (11:08)
[2022-04-06] MEDS ORDERED: CARBOHYDRATES FOR HYPOGLYCEMIA PO PRN (11:08)
--- NOTE | 2022-04-06 11:14 | History & Physical Report ---
Date of Service April 06, 2022 Assessment & Plan (1) Hyperosmolar hyperglycemic state (HHS): Plan: - Presenting glucose 829, serum osm 334, K+ 4.8. - Admit to PCU bed. - DKA/HHS protocol set ordered with insulin bolus + continuous infusion started in ED. - BGS Q1h, BMP with Mg, Phos Q4h. (2) KEE (acute kidney injury): Plan: - BUN 41, Cr 1.88, baseline ~1.6 - 1.8 - Will be reciving IVF per HHS protocol as above. - Likely as underlying CKD, per PCP note previously seen by nephrology but has not see them recently. - Continue to follow renal function on BMP. (3) Uncontrolled type 2 diabetes mellitus with insulin therapy: Plan: - Home regimen include Trulicity 0.75 mg add on weekly last month, d/c'd glimepiride, Januvia, Novolog at that time. - Diabetic diet when tolerating PO intake. - A1c 9.5% in January. - Management of hyperglycemia as above. (4) Hypothyroidism: Plan: - Continue levothyroxine 112 mcg daily. Plan: - Admit to PCU. - DVTs ordered. - Full Code. History of Present Illness Chief Complaint: Elevated sugars at home Primary Care Provider: KINA Ortiz Mr. Beckwith is 81-year-old male with past medical history of DM2 and hypothyroidism who presents today due to elevated blood sugars readings at home. Patient was recently switched to Trulicity and taken off his other diabetic medications include Januvia, glimepiride, NovoLog 3 weeks ago. States he had been feeling well wellness until 3 days ago when he developed extreme thirst and polyuria. He checked his sugars today and they were unreadable on his home machine. He called his PCP who advised him to present to the ED for further evaluation. No other complaints, fever/chills, chest pain, shortness breath, cough, abdominal pain, nausea, vomiting, diarrhea, constipation. In ED, vital signs stable and within normal limits. Labs significant for blood glucose of 829, osmolality 334. Potassium 4.8, sodium 129 but corrects to 141 when accounting for hyperglycemia. BUN 41, creatinine 1.88. CBC and UA unremarkable. COVID-negative. Allergies Allergy/AdvReac Type Severity Reaction Status Date / Time No Known Allergies Allergy Unknown Verified 02/09/22 06:49 Home Medications Medication Instructions Recorded Confirmed Type lancets (OneTouch UltraSoft #100 ea 08/19/19 02/09/22 Rx Lancets) blood sugar diagnostic #300 ea NS 07/01/21 02/09/22 Rx pen needle, diabetic 32 gauge x #300 ea 07/14/21 02/09/22 Rx 1/4" (BD Ultra-Fine Micro Pen Needle) glimepiride 4 mg tablet 4 mg PO BID #180 tab 08/02/21 04/06/22 Rx dulaglutide 0.75 mg/0.5 mL 0.75 mg SUBCUT WK 04/06/22 04/06/22 History subcutaneous pen injector (Trulicity) levothyroxine 112 mcg tablet 112 mcg PO DAILYBB 04/06/22 04/06/22 History Past Med/Surg History Medical History Anemia DM II (diabetes mellitus, type II), controlled IDDM History of COVID-19 08/2020 - no hospitalization. no current symptoms History of nephrolithiasis History of prostate cancer 15 years ago; surgery + radiation HLD (hyperlipidemia) Hypothyroidism Osteopenia Surgical History History of cataract surgery RT History of colonoscopy History of lithotripsy History of nephrolithotomy with removal of calculi History of prostate biopsy History of prostate surgery S/P trigger finger release Family History Other CHF (congestive heart failure) Cardiac pacemaker in situ DM II (diabetes mellitus, type II), controlled Nephrolithiasis No family history of adverse response to anesthesia No pertinent family history Prostate cancer Denies family history of Breast cancer Colorectal cancer Social History Smoking Status: Never smoker Second Hand Exposure: No; Hx Alcohol Use: No Hx Substance Use: No Preferred Language: Chadian Communication Ability: Effective Hearing Ability: Normal 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 Beliefs That Will Affect Care: None marital status: / Current Living Situation: Alone Feels Safe at Home: Yes Assistive Devices: Denture - Upper and Glasses Review of Systems Review of Systems: Constitutional: increased thirst; No fever/chills, weakness, fatigue, myalgias, anorexia, night sweats Eyes: No diplopia, no worsening or blurred vision ENT: normal hearing, no trouble swallowing Respiratory: No cough, sputum, dyspnea at rest or on exertion Cardiovascular: No chest pain, tightness or palpitations Abdomen: No pain, nausea, vomiting, diarrhea or constipation : reports increased urgency/frequency; Denies dysuria, hematuria , urinary retention Musculoskeletal: No joint pain, calf pain, swelling Neurologic: No weakness, numbness/tingling, or balance problems Psychiatric: No anxiety or depression Skin: No rash or itch Physical Exam 2 Physical Exam: General: awake, alert, no apparent distress Head: Normocephalic, atraumatic ENT: PERRL, EOMI, no pharyngeal exudate, mucous membranes moist Chest: Clear to auscultation, on room air, no adventitious breath sounds Cardiac: Regular rate and rhythm, no murmur, no JVD, normal peripheral pulses, good capillary refill Abdominal: NABS x 4 quadrants, soft, nontender to palpation, no rebound, guarding or tenderness Extremities: Normal inspection, no peripheral edema or erythema, calfs nontender to palpation Psych: Normal mood and affect Neuro: AAO x 3, strength intact bilaterally and rated 5/5, no motor deficits, speech is clear, no peripheral sensory deficits Skin: no rash or erythema Results & Data Results & Data ([facility]) Vital Signs (Past 12 Hours) Vital Signs Temp Pulse Resp BP Pulse Ox 04/06/22 10:10 76 22 99 04/06/22 10:01 77 23 98 04/06/22 10:00 155/83 H 04/06/22 09:30 36.4 C L 89 18 138/80 97 Laboratory Results Abnormal lab results 04/06/22 04/06/22 04/06/22 Range/Units 09:36 10:01 10:01 Lymph # (Auto) 0.92 L (1.2-3.4) K/uL Sodium 129 L (136-145) mmol/L Chloride 95 L (98-107) mmol/L BUN 41 H (6-23) mg/dl Creatinine 1.88 H (0.6-1.4) mg/dl BUN/Creatinine Ratio 21.8 H (10-20) Glucose 829 H* (70-99(Fasting)) mg/dl POC Glucose > 600 H* (70-99) mg/dl Osmolality (280-300) mOsm/kg Lipase 99 H (11-82) U/L Urine Glucose (UA) (Negative) 04/06/22 04/06/22 Range/Units 10:01 10:01 Lymph # (Auto) (1.2-3.4) K/uL Sodium (136-145) mmol/L Chloride (98-107) mmol/L BUN (6-23) mg/dl Creatinine (0.6-1.4) mg/dl BUN/Creatinine Ratio (10-20) Glucose (70-99(Fasting)) mg/dl POC Glucose (70-99) mg/dl Osmolality 334 H (280-300) mOsm/kg Lipase (11-82) U/L Urine Glucose (UA) 3+ H (Negative) ECG Additional Comments: Normal sinus rhythm Inferior infarct , age undetermined Abnormal ECG When compared with ECG of 13-AUG-2020 13:58, Inferior infarct is now Present. Code Status & VTE Plan Code Status Full Code. Supervising Physician Co-Signing Physician Notes Discussed with AGUEDA, reviewed her documentation. Agree with the note above. This is a 81-year-old male with past medical history of diabetes mellitus. He is complaining of hyperglycemia for past 30 days with accompanying symptoms. It was found that his blood sugars were significantly elevated. He was found to be in HHS in the emergency room. Patient was started on insulin drip. Plan to admit to stepdown unit, follow patient's laboratory work closely. Of note, patient was recently changed to Trulicity from his oral regimen, plan to restart this regimen once patient's blood sugars are improved. We will need to follow BNP along with electrolytes, replete as needed. PG Care Time/CCT Total # of Minutes Spent Total Time Spent with Patient: Total time spent is greater than 50% in coordination of care (as documented) at patient's floor/unit and/or counseling patient: Coding Level of Care Code 27111 Initial Inpt Care Lvl 3 Diagnoses KEE (acute kidney injury) N17.9 Hypothyroidism E03.9 Hypothyroidism type: acquired Uncontrolled type 2 diabetes mellitus with insulin therapy E11.65; Z79.4 Hyperosmolar hyperglycemic state (HHS) E11.00; E11.65 (1) Hypothyroidism Hypothyroidism type: acquired Qualified Code(s): E03.9 - Hypothyroidism, unspecified
[2022-04-06] MEDS ORDERED: NovoLIN-R BOLUS FROM BAG IV ONE (11:15)
[2022-04-06] MEDS ORDERED: SODIUM CHLORIDE 0.9% 1000ML 1,000 ML IV SCH (11:45)
[2022-04-06] MEDS: INSULIN REGULAR 250 UNITS in SODIUM CHLORIDE 0.9% 247.5 ML IV SCH ×2 (12:06→19:07)
[2022-04-06] MEDS ORDERED: HHS GOAL RANGE 250-350 mg/dl ONE (13:58)
[2022-04-06] MEDS ORDERED: STAT IV Infusion **Titration per Protocol STA (13:58)
[2022-04-06] MEDS ORDERED: NORMOSOL-R 1,000 ML IV SCH (13:58)
[2022-04-06] MEDS ORDERED: ONDANSETRON INJ 2 MG/ML 2 ML VIAL IV PRN (13:58)
[2022-04-06] MEDS ORDERED: POLYETHYLENE (MIRALAX) 17 GM PACK PO PRN (13:58)
[2022-04-06] MEDS ORDERED: DC ALL PREVIOUSLY ORDERED DIABETES MEDS ONE (13:58)
[2022-04-06] MEDS ORDERED: ACETAMINOPHEN 325 MG TAB PO PRN (13:58)
[2022-04-06] MEDS: INSULIN ASPART PER UNIT SC SCH ×4 (14:24→22:39)
[2022-04-06] MEDS ORDERED: D5W AND 1/2NSS + 20MEQ KCL 20 MEQ/1,000 ML BAG IV SCH (14:45)
[2022-04-06] MEDS ORDERED: PENDING 1/2NSS+20mEq KCL IVF SCH (15:00)
[2022-04-06] MEDS ORDERED: PENDING D5 1/2NS+20mEq KCL IVF SCH (15:00)
[2022-04-06 15:11] LABS: BUN Creatinine Ratio 23.1 (10-20); Calcium 9.9 mg/dl (8.5-10.1); Creatinine Clr Calc Pharmacy 37.4 ml/min; Est GFR (African American) 46.8 ml/min; Est GFR (Non-African American) 40.4 ml/min; Magnesium 2.2 mg/dl (1.7-2.4); Phosphorus 2.3 mg/dl (2.5-4.9); Potassium 4.3 mmol/L (3.5-5.1)
[2022-04-06] MEDS ORDERED: PHARMACY GLYCEMIC MGMT CONSULT PRN (15:35)
[2022-04-06] MEDS ORDERED: INSULIN ASPART PER UNIT SC SCH (16:30)
[2022-04-06] MEDS ORDERED: INSULIN GLARGINE SOLOSTAR 100 UNITS/ML 3 ML PEN SC ONE (17:00)
[2022-04-06] MEDS: NORMOSOL-R 1,000 ML IV SCH (17:22)
[2022-04-06 17:36] LABS: BUN Creatinine Ratio 22.9 (10-20); Calcium 9.2 mg/dl (8.5-10.1); Creatinine Clr Calc Pharmacy 39.1 ml/min; Est GFR (African American) 49.4 ml/min; Est GFR (Non-African American) 42.6 ml/min; Magnesium 2.1 mg/dl (1.7-2.4); Phosphorus 2.8 mg/dl (2.5-4.9); Potassium 4.4 mmol/L (3.5-5.1)
[2022-04-06 21:14] LABS: BUN Creatinine Ratio 20.9 (10-20); Calcium 8.9 mg/dl (8.5-10.1); Creatinine Clr Calc Pharmacy 34.8 ml/min; Est GFR (African American) 42.9 ml/min; Phosphorus 1.7 mg/dl (2.5-4.9); Potassium 3.9 mmol/L (3.5-5.1)
[2022-04-07] MEDS: INSULIN ASPART PER UNIT SC SCH ×7 (00:21→23:24)
[2022-04-07] MEDS: NORMOSOL-R 1,000 ML IV SCH ×4 (00:22→23:03)
[2022-04-07 01:51] LABS: BUN Creatinine Ratio 22.3 (10-20); Calcium 8.4 mg/dl (8.5-10.1); Creatinine Clr Calc Pharmacy 40.5 ml/min; Est GFR (African American) 51.4 ml/min; Est GFR (Non-African American) 44.4 ml/min; Phosphorus 2.4 mg/dl (2.5-4.9); Potassium 4.1 mmol/L (3.5-5.1)
[2022-04-07] MEDS: LEVOTHYROXINE SODIUM 112 MCG TABLET PO SCH (06:39)
[2022-04-07 07:30] LABS: BUN Creatinine Ratio 20.4 (10-20); Calcium 8.2 mg/dl (8.5-10.1); Creatinine Clr Calc Pharmacy 40.7 ml/min; Est GFR (African American) 51.8 ml/min; Est GFR (Non-African American) 44.7 ml/min; Magnesium 1.9 mg/dl (1.7-2.4); Phosphorus 2.1 mg/dl (2.5-4.9); Potassium 4.4 mmol/L (3.5-5.1)
[2022-04-07] MEDS: INSULIN GLARGINE SOLOSTAR 100 UNITS/ML 3 ML PEN SC SCH (09:10)
--- NOTE | 2022-04-07 10:04 | Pharmacy Report ---
Pharmacy Glycemic Short Note 2 - Date of Service April 07, 2022 - Glycemic Short BSG Results (Last 24 hours): 04/06/22 04/06/22 04/06/22 10:01 12:31 13:19 Glucose 829 H* POC Glucose 568 H* 326 H* 04/06/22 04/06/22 04/06/22 14:30 14:33 15:29 Glucose 218 H POC Glucose 256 H 181 H 04/06/22 04/06/22 04/06/22 16:25 16:26 17:33 Glucose 192 H POC Glucose 222 H 254 H 04/06/22 04/06/22 04/06/22 18:31 19:36 20:33 Glucose 162 H POC Glucose 270 H 196 H 04/06/22 04/06/22 04/07/22 20:36 21:27 00:18 Glucose POC Glucose 148 H 181 H 167 H 04/07/22 04/07/22 04/07/22 01:13 04:09 06:50 Glucose 167 H 199 H POC Glucose 159 H 04/07/22 07:03 Glucose POC Glucose 204 H OUTPATIENT ANTIDIABETIC REGIMEN: * Trulicity 0.75 mg SQ once weekly - Saturdays * A1c = 935% (January 2022) ASSESSMENT: * Cornell is 81 yo with h/o DM2 admitted with hyperglycemia. He reports recent changes to his outpatient regimen. He was previously on Januvia, glimepiride and Novolog. He is now on Trulicity once weekly (per H&P). BSG of 829 mg/dL upon arrival to the ED. Patient was started on an IV insulin infusion. * Pharmacy consulted the evening of 04/06 to transition patient to SQ basal + bolus insulin regimen. * A one time dose of Lantus 0.2 units/kg SQ was ordered along with novolog CF/CR per stress of 2-3. * Fasting BSG of 204 mg/dL this morning. Will increase basal insulin this morning and add a conservative dose per scale for this evening. * Continue current Novolog parameters for now. PLAN FOR INPATIENT GLYCEMIC CONTROL: * Hold outpatient oral diabetes medications * Basal insulin * Lantus 20 units SQ this morning * Lantus 0-5-10 units SQ this evening (5 units for BSG 140-200, 10 units for BSG > 200 mg/dL) * Bolus insulin * NovoLog per scale ACHS or Q6hrs while NPO * Goal Range: Low 110 mg/dL - High 140 mg/dL * Correction Factor: 25 mg/dL/unit * Nutritional / Prandial insulin per carb ratio of 1 unit per 8 grams CHO consumed
[2022-04-07 11:26] LABS: BUN Creatinine Ratio 21.1 (10-20); Calcium 8.4 mg/dl (8.5-10.1); Creatinine Clr Calc Pharmacy 40.7 ml/min; Est GFR (African American) 51.8 ml/min; Est GFR (Non-African American) 44.7 ml/min; Magnesium 1.9 mg/dl (1.7-2.4); Phosphorus 1.6 mg/dl (2.5-4.9); Potassium 4.5 mmol/L (3.5-5.1)
--- NOTE | 2022-04-07 16:13 | Hospitalist Progress Note ---
Date of Service April 07, 2022 Assessment & Plan (1) Hyperosmolar hyperglycemic state (HHS): Plan: - Presenting glucose 829, serum osm 334, K+ 4.8. -Admitted to PCU Transition from insulin GTT to subcu today Initially doing well with BSG's down to 160s, increased to 340 and again now downtrending. Continues to require additional glycemic management, pharmacy consulted appreciate adjustments Met with community health educator. Anticipate being discharged on basal insulin in addition to his above medications. Patient would prefer to avoid short acting insulin as he feels like this just causes him to eat more which pushes his sugar up further regardless of insulin dosing. Did discuss the importance of consistent diet and carb management, and red regular blood sugar checks. Agreeable to this. 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 - Diabetic diet when tolerating PO intake. - A1c 9.5% in January. - Management of hyperglycemia as above. Extensive counseling on blood sugar management, diet, and blood sugar checksAt bedside today (4) Hypothyroidism: Plan: - Continue levothyroxine 112 mcg daily. Plan: - Admit to PCU. - DVTs ordered. - Full Code. Admission and Anticipated Discharge Date Admission Date: April 06, 2022 Subjective Seen at bedside this morning. Feels greatly improved compared to yesterday. Reports that he not been checking his sugars as often, had been okay after some meds which is and then was very high on his check before coming in. Did feel very dehydrated and was peeing a lot in the last few days. He reports that he is a troubles diabetes medications making him hungry in the past, and that when he was put on some of these including insulin he would eat much more after that. Discussed the effect of meals and sugar on blood sugar, patient feels that his hunger does better with Trulicity and would like to continue this. Is doing well today and is peeing less but still feels very fatigued. Denies chest pain, chest pressure, abdominal pain, nausea, vomiting this morning. Denies vision change and neuropathy Review of Systems Review of Systems: All systems reviewed & are unremarkable except as noted in Subjective Physical Exam Physical Exam: General: A&Ox3. NAD. Cooperative. HEENT: Atraumatic, normocephalic. Patient and hearing grossly intact Pulm: CTAB A&P. -wheezes, -rales, -rhonchi. Symmetrical chest rise. No increase in work of breathing. No respiratory distress. Cardiac: RRR, -mrg. Radial pulses intact and symmetrical. Abdominal: Nontender, nondistended, soft. BS present. Results & Data Results & Data ([facility]) Vital Signs (Past 12 Hours) Vital Signs Temp Pulse Pulse Resp BP Pulse Ox 04/07/22 15:27 36.7 C 71 18 162/90 H 96 04/07/22 11:50 36.7 C 76 18 154/80 H 97 04/07/22 08:00 64 04/07/22 07:35 36.6 C 62 18 157/78 H 97 PG Care Time/CCT Total # of Minutes Spent Total Time Spent with Patient: Total time spent is greater than 50% in coordination of care (as documented) at patient's floor/unit and/or counseling patient: Coding Level of Care Code 55017 Subseq Hosp Care Lvl 3 Diagnoses Hyperosmolar hyperglycemic state (HHS) E11.00; E11.65 KEE (acute kidney injury) N17.9 Uncontrolled type 2 diabetes mellitus with insulin therapy E11.65; Z79.4 Hypothyroidism E03.9 Hypothyroidism type: acquired (1) Hypothyroidism Hypothyroidism type: acquired Qualified Code(s): E03.9 - Hypothyroidism, unspecified
--- NOTE | 2022-04-07 19:27 | Electrocardiogram Report ---
Test Reason : Blood Pressure : / mmHG Vent. Rate : 086 BPM Atrial Rate : 086 BPM P-R Int : 156 ms QRS Dur : 076 ms QT Int : 360 ms P-R-T Axes : 037 005 031 degrees QTc Int : 430 ms Normal sinus rhythm When compared with ECG of 13-AUG-2020 13:58, No significant change Confirmed by Kit Echavarria ([id number]) on 04/07/2022 7:26:58 PM Referred By: Confirmed By:Kit Echavarria
[2022-04-07] MEDS ORDERED: METOPROLOL TARTRATE 1 MG/ML VIAL IV STA (20:32)
[2022-04-07] MEDS ORDERED: INSULIN GLARGINE SOLOSTAR 100 UNITS/ML 3 ML PEN SC SCH (21:00)
[2022-04-07] MEDS: POT PHOSPHATE MONOBASIC W/ SOD TAB PO SCH (21:04)
[2022-04-07] MEDS ORDERED: INSULIN ASPART PER UNIT SC SCH (21:45)
[2022-04-08] MEDS: INSULIN ASPART PER UNIT SC SCH ×3 (04:07→12:27)
[2022-04-08] MEDS: NORMOSOL-R 1,000 ML IV SCH (05:32)
[2022-04-08] MEDS: LEVOTHYROXINE SODIUM 112 MCG TABLET PO SCH (05:32)
[2022-04-08] MEDS: POT PHOSPHATE MONOBASIC W/ SOD TAB PO SCH ×2 (09:09→13:58)
[2022-04-08] MEDS: INSULIN GLARGINE SOLOSTAR 100 UNITS/ML 3 ML PEN SC SCH (09:10)
--- NOTE | 2022-04-08 09:24 | Pharmacy Report ---
Pharmacy Glycemic Short Note 2 - Date of Service April 08, 2022 - Glycemic Short BSG Results (Last 24 hours): 04/07/22 04/07/22 04/07/22 10:04 11:40 16:21 Glucose 348 H* POC Glucose 252 H 147 H 04/07/22 04/07/22 04/08/22 19:41 23:09 03:54 Glucose POC Glucose 140 H 161 H 104 H 04/08/22 06:56 Glucose POC Glucose 143 H OUTPATIENT ANTIDIABETIC REGIMEN: * Trulicity 0.75 mg SQ once weekly - on Saturdays, started 03/19/22 * A1c = 9.5% (January 2022) ASSESSMENT: 04/08/22 * Blood sugars at goal, receiving 25 units basal and 40 units bolus insulin/day. No changes for inpatient regimen at this time. * Recommend adding Lantus to home regimen on discharge at 25 units daily - confirmed w/ Brielle MOLINA, and covered by insurance for $5/mo 04/07/22 * Cornell is 81 yo with h/o DM2 admitted with hyperglycemia. He reports recent changes to his outpatient regimen. He was previously on Januvia, glimepiride and Novolog. He is now on Trulicity once weekly (per H&P). BSG of 829 mg/dL upon arrival to the ED. Patient was started on an IV insulin infusion. * Pharmacy consulted the evening of 04/06 to transition patient to SQ basal + bolus insulin regimen. * A one time dose of Lantus 0.2 units/kg SQ was ordered along with novolog CF/CR per stress of 2-3. * Fasting BSG of 204 mg/dL this morning. Will increase basal insulin this morning and add a conservative dose per scale for this evening. * Continue current Novolog parameters for now. PLAN FOR INPATIENT GLYCEMIC CONTROL: * Hold outpatient Trulicity * Basal insulin * Lantus 20 units SQ QAM * Lantus 0-5-10 units SQ QHS (5 units for BSG 140-200, 10 units for BSG > 200 mg/dL) * Bolus insulin * NovoLog per scale ACHS or Q6hrs while NPO * Goal Range: Low 110 mg/dL - High 140 mg/dL * Correction Factor: 20 mg/dL/unit * Nutritional / Prandial insulin per carb ratio of 1 unit per 7 grams CHO consumed
--- NOTE | 2022-04-08 11:22 | Discharge Summary ---
Date of Service April 08, 2022 Admission HPI Per Admitting Provider Mr. Beckwith is 81-year-old male with past medical history of DM2 and hypothyroidism who presents today due to elevated blood sugars readings at home. Patient was recently switched to Trulicity and taken off his other diabetic medications include Januvia, glimepiride, NovoLog 3 weeks ago. States he had been feeling well wellness until 3 days ago when he developed extreme thirst and polyuria. He checked his sugars today and they were unreadable on his home machine. He called his PCP who advised him to present to the ED for further evaluation. No other complaints, fever/chills, chest pain, shortness breath, cough, abdominal pain, nausea, vomiting, diarrhea, constipation. In ED, vital signs stable and within normal limits. Labs significant for blood glucose of 829, osmolality 334. Potassium 4.8, sodium 129 but corrects to 141 when accounting for hyperglycemia. BUN 41, creatinine 1.88. CBC and UA unremarkable. COVID-negative. Principal Diagnosis HHS Discharge Exam General: A&Ox3. NAD. Cooperative. HEENT: Atraumatic, normocephalic. Patient and hearing grossly intact Pulm: CTAB A&P. -wheezes, -rales, -rhonchi. Symmetrical chest rise. No increase in work of breathing. No respiratory distress. Cardiac: RRR, -mrg. Radial pulses intact and symmetrical. Abdominal: Nontender, nondistended, soft. BS present. Discharge Data Allergies Allergy/AdvReac Type Severity Reaction Status Date / Time No Known Allergies Allergy Unknown Verified 02/09/22 06:49 Consultations 04/06/22 11:10 ED Decision to Admit Stat Hospital Course (1) Hyperosmolar hyperglycemic state (HHS): Cornell is a 81-year-old male with history of diabetes with recent diabetic regimen changes in the previous month who presented with blood sugars over 800 and HHS. He was treated with an insulin IV drip and transitioned to basal bolus insulin and did well. He was continued on his home and glycemic medications and started on Lantus 25 units daily with close follow-up to his PCP for further adjustments. Blood sugars were less than 150 morning of discharge, did have an initial creatinine elevation to 1.88 which down trended to the patient's normal baseline prior to discharge. To do as outpatient: 1. Add Lantus 25 units every morning to diabetes regimen. 2. Follow-up BMP in 1 week for creatinine stability 3. Titration of antilipemics as necessary. Patient is keeping a blood sugar log, instructed to check at least before breakfast and 1 other times daily and as needed. - Presenting glucose 829, serum osm 334, K+ 4.8. -Admitted to PCU Transition from insulin GTT to subcu Initially doing well with BSG's down to 160s, increased to 340 and again again downtrending. Met with diabetic educatordischarged on basal insulin in addition to his above medications. Patient would prefer to avoid short acting insulin as he feels like this just causes him to eat more which pushes his sugar up further regardless of insulin dosing. Did discuss the importance of consistent diet and carb management, and red regular blood sugar checks. Agreeable to this. Final recommendations pending insulin requirements your discharge -Trend BMP, phosphorus repleted (2) KEE (acute kidney injury): - BUN 41, Cr 1.88, baseline ~1.6 - 1.8. 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 - Diabetic diet when tolerating PO intake. - A1c 9.5% in January. - Management of hyperglycemia as above. Extensive counseling on blood sugar management, diet, and blood sugar checksAt bedside today (4) Hypothyroidism: - Continue levothyroxine 112 mcg daily. - Admit to PCU. - DVTs ordered. - Full Code. Total Time Total Time Spent Total Time Spent (In Minutes): Time spend day of discharge 35 minutes including direct patient care, documentation, review of labs and images, and coordination of care. Discharge Plan Discharge Items Patient Disposition: Home - Self-Care Reason For Visit: HYPERSMOLAR HYPERGLYCEMIC STATE Discharge Diagnosis: High blood sugar, hyper osmolar hyperglycemic state Activity: Resume your previous activity Non-emergency contact: Primary Care Provider Call non-emergency contact if: you have any medication questions and your symptoms worsen Follow-up/Referrals: Aurea Das CRNP [Primary Care Provider] - Diet: Carb Consistent or DM2 Addtl Attending Provider Instructions: You are seen in the hospital for dangerously high blood sugar. You were treated with an insulin IV and gradually switched over to injectable insulin and did well. Your blood sugars improved to the low 100s. You have been prescribed a long-acting insulin as noted below. It is very important to check your blood sugars at least twice a day, before breakfast and at least 1 other time throughout the day. If you are concerned you may check blood sugar before each meal. If you have blood sugars over 250, or any blood sugar over 300 please seek medical reevaluation/call your primary care physician. You have been prescribed a long-acting insulin, insulin glargine (Lantus). Please take Lantus once daily in the morning 25 units. Please continue to take your Trulicity and glimepiride when you return home. The Lantus above has been added to these medications. Symptoms of low blood sugar including lightheadedness, dizziness, feeling of almost passing out, nausea/vomiting lease check your blood sugar, if your blood sugars lower than 80 you may drink some juice or take a glucose tablet and recheck your blood sugar within an hour You will need close follow-up for adjustments to your diabetes medications, your Lantus dosing was based on what was needed in the hospital however patient's daily life often is different and will have slightly different requirements that either need intensification or loosening of the regimen. You should have follow-up with your primary care physician, discuss regular reassessment and adjustments at that visit. If you develop any new or worsening symptoms including fever, chills, sweats, chest pain, chest pressure, difficulty breathing, uncontrolled nausea/vomiting, rash, wheezing, passing out or nearly passing out, bleeding, black/bloody bowel movements, or other new or concerning symptoms please call your primary care physician, or call 911 for re-evaluation in the emergency department if you are very concerned. Pending Studies at Discharge: No Stand-Alone Forms: My Dash, Smoking Cessation Medications and DC Order Prescriptions: New insulin glargine [Lantus Solostar U-100 Insulin] 100 unit/mL (3 mL) Insulin Pen 25 unit SC QAM Qty: 15 RF: 0 Trulicity 0.75 mg/0.5 mL pen injector 0.75 mg subcut WK Qty: 2 RF: 0 Continued (DME) blood sugar diagnostic Strip See Dose Instructions .ROUTE .MEDSUPPLY Qty: 300 RF: 3 (DME) pen needle, diabetic [BD Ultra-Fine Micro Pen Needle] 32 gauge x 1/4" needle See Dose Instructions .ROUTE .MEDSUPPLY Qty: 300 RF: 3 glimepiride 4 mg tablet 4 mg PO BID Qty: 180 RF: 3 Hold Instructions: Trying Trulicity (DME) lancets [OneTouch UltraSoft Lancets] misc See Dose Instructions .ROUTE .MEDSUPPLY Qty: 100 RF: 5 levothyroxine 112 mcg tablet 112 mcg PO DAILYBB RF: 0 Discontinued Trulicity 0.75 mg/0.5 mL pen injector 0.75 mg subcut WK RF: 0 Discharge Orders: Discharge Order (Routine); Ordered 04/08/22 Ordered By: Ricardo Albright Admission Data Admit Date/Time: 04/06/22 12:05 Attending Provider: Ricardo Albright Admit Provider: Hansel Chen Primary Care Provider: Aurea Das Other Providers: Segundo Shaikh Coding Level of Care Code D/C DAY MANAGEMENT >30 MINS Diagnoses Hyperosmolar hyperglycemic state (HHS) E11.00; E11.65 KEE (acute kidney injury) N17.9 Uncontrolled type 2 diabetes mellitus with insulin therapy E11.65; Z79.4 Hypothyroidism E03.9 Hypothyroidism type: acquired
[2022-04-08] MEDS ORDERED: INSULIN GLARGINE SOLOSTAR 100 UNITS/ML 3 ML PEN SC SCH (21:00)
== END 2022-04-08 15:02 | disposition home or self-care (01) | DRG 638 ==
LOC: ED 09:27 → 2S 12:05 → SUATTDRO 12:05 → 2S 13:30

== ENCOUNTER 2023-06-18 15:01 | Observation (INO) ==
--- NOTE | 2023-06-18 16:10 | Emergency Department Note ---
Impression & Plan Acute hyperglycemia, Acute dehydration, Hyponatremia, Acute Lyme disease, Leukocytosis, Upper back pain ED Provider Note NAME: JAYMIE BRADFORD AGE: 82 SEX: M : 1940 ARRIVES VIA: Walk-In INFORMANT: [Patient] ED PROVIDER(S): [Gurpreet Garcia MD] CHIEF COMPLAINT: Back pain HISTORY OF PRESENT ILLNESS: The patient is an 82-year-old male who presents to the ER with complaints of 5 d ays of diffuse back discomfort, both upper and lower, especially noticed after he eats. The patient has been using Tylenol for relief. He is also felt a bit nauseated and has noticed a higher blood sugar in the 200s. He is tired. He just does not feel well, he believes there must be something wrong. There has been no fever, no anterior chest pain. No abdominal pain. No cough or shortness of breath. He does not have burning with urination but has had some urinary frequency. He denies any recent tick bites. The patient did see his doctor's office mid last week, no medication changes ma de. PMHx/PSHx: See Below SOCIAL HISTORY: See Below. PHYSICAL EXAM: GENERAL: Patient is in no acute distress. HEENT: No acute trauma, normocephalic atraumatic, mucous membranes moist, no nasal congestion. NECK: No stridor, no adenopathy, no meningismus, trachea is midline. LUNGS: Clear to auscultation bilaterally, no wheeze, no rhonchi, breath sounds equal. HEART: Without murmurs gallops or rubs, regular rate and rhythm. ABDOMEN: Soft, nontender, bowel sounds positive, no peritonitis. EXTREMITIES: No cyanosis or edema, full range of motion of all the joints without pain or difficulty, no signs for acute trauma. NEUROLOGIC: Oriented x 3, no acute motor or sensory deficits, no focal weakness. SKIN: No rash, no jaundice, no diaphoresis. Back: Nontender thoracic or lumbar spine, no rashes. DIFFERENTIAL DIAGNOSIS: Renal colic, musculoskeletal pain, electrolyte imbalance, renal failure, anemia, VT, tickborne illness, among others. EMERGENCY DEPARTMENT COURSE/PROCEDURES: Prior/Outside records reviewed: None. ECG per my interpretation: Indication was back pain. The ECG shows a normal sinus rhythm with a rate of 81. There is poor R wave progression. There is no ST elevation, no PVCs. The QTc is 441 Continuous Cardiac Monitoring per my interpretation: An order was placed for continuous cardiac monitoring. The monitor shows a rate of 95 with normal sinus rhythm. MEDICAL DECISION MAKING: There is no leukocytosis. There is a very mild anemia. There is a normal platelet count. Sodium was low at 131. Glucose was high at almost 400. There was some renal insufficiency but this appears baseline looking back at previous testing. Alk phos was elevated, the remaining liver enzymes were unremarkable. ECG shows a normal sinus rhythm, no ischemia. Cardiac enzyme testing x1 is not consistent with acute cardiac injury. No evidence for pancreatitis by our testing. Urinalysis shows glucose, no infection. Anaplasmosis and Babesia smears are negative, the send out testing is pending. Lyme disease testing was positive. Chest film per my review did not show mediastinal widening, pneumonia or pneumothorax. Abdominal and pelvis CT did not show any findings of ureteral obstruction or ureteral stone. No bowel obstruction. The patient received IV saline, 1 L. He was given IV insulin, 8 units. Received IV ceftriaxone as antibiotic coverage for Lyme disease. The patient is hyperglycemic, complaining of fatigue and back pain. He has some electrolyte abnormalities and appears to be suffering from Lyme disease. Given his findings and presentation, I do believe a hospital stay would be warranted. I spoke with the patient and case management, the on-call hospitalist was consulted. Of note, the patient's blood sugar is now much better controlled, in the 150s, since his IV fluids and IV insulin. DISPOSITION: Patient's presentation and findings warrant a hospital stay. Past Med/Surg History Medical History KEE (acute kidney injury) Anemia DM (diabetes mellitus), type 2, uncontrolled, periph vascular complic DM II (diabetes mellitus, type II), controlled IDDM History of COVID-19 08/2020 - no hospitalization. no current symptoms History of nephrolithiasis History of prostate cancer 15 years ago; surgery + radiation HLD (hyperlipidemia) Hyperosmolar hyperglycemic state (HHS) Hyperosmolar hyperglycemic state (HHS) Hypothyroidism Osteopenia Peripheral arterial occlusive disease Surgical History History of cataract surgery RT History of colonoscopy History of lithotripsy History of nephrolithotomy with removal of calculi History of prostate biopsy History of prostate surgery S/P trigger finger release Family History Other CHF (congestive heart failure) Cardiac pacemaker in situ DM II (diabetes mellitus, type II), controlled Nephrolithiasis No family history of adverse response to anesthesia No pertinent family history Prostate cancer Denies family history of Breast cancer Colorectal cancer Social History Smoking Status: Never smoker Second Hand Exposure: Yes; Do You Dip or Chew Tobacco: No; Hx Alcohol Use: No Hx Substance Use: No Preferred Language: Malay Communication Ability: Effective Hearing Ability: Normal Latin Professor Required: No Beliefs That Will Affect Care: None marital status: / Current Living Situation: Alone current occupational status: retired Feels Safe at Home: Yes Diet: other Assistive Devices: None Allergies Allergies Allergy/AdvReac Type Severity Reaction Status Date / Time No Known Allergies Allergy Unknown Verified 06/18/23 17:07 Home Meds Home Medications Medication Instructions Recorded Confirmed aspirin 81 mg tablet,delayed 81 mg PO DAILY 02/07/23 06/18/23 release (Adult Low Dose Aspirin) Previous Rx's Medication Instructions Recorded lancets (OneTouch UltraSoft #100 ea 08/19/19 Lancets) blood-glucose meter (OneTouch #1 ea 07/29/22 Ultra2 Meter) dulaglutide 1.5 mg/0.5 mL 1.5 mg (0.5 mL) subcut WK #4 02/07/23 subcutaneous pen injector syringes rosuvastatin 10 mg tablet 10 mg PO DAILY #90 tabs 02/07/23 blood sugar diagnostic #300 ea 02/27/23 insulin glargine 100 unit/mL (3 38 unit (0.38 mL) SC QAM #15 mL 04/07/23 mL) subcutaneous pen (Lantus Solostar U-100 Insulin) pen needle, diabetic 32 gauge x #100 ea 04/07/23" levothyroxine 112 mcg tablet 112 mcg PO DAILYBB #90 tabs 04/13/23 Results & Data (ED) Vital Signs Vital Signs - 24 hr 06/18/23 15:07 06/18/23 15:02 06/18/23 16:02 Temperature 36.7 C Temperature Source Temporal Artery Scan Pulse Rate 95 H Pulse Rate [Apical] 85 Respiratory Rate 17 20 Respiratory Effort / Characteristics Non-Labored Non-Labored Respiratory Depth Normal Blood Pressure 142/79 H Blood Pressure [Right Arm] 148/88 H Blood Pressure Mean 100 Blood Pressure Mean [Right Arm] 108 Blood Pressure Position [Right Arm] Pulse Oximetry 97 95 96 Oxygen Delivery Method Room Air Room Air Room Air Sepsis Recent Fever Within 48 Hours No Sepsis New/Unexplained Change in Mental Status N/A Sepsis Action Taken by Nursing No Action Required 06/18/23 16:17 06/18/23 17:20 06/18/23 19:05 Temperature Temperature Source Pulse Rate Pulse Rate [Apical] 76 81 95 H Respiratory Rate 18 18 20 Respiratory Effort / Characteristics Respiratory Depth Blood Pressure Blood Pressure [Right Arm] 152/90 H 169/82 H 184/94 H Blood Pressure Mean Blood Pressure Mean [Right Arm] 110 111 124 Blood Pressure Position [Right Arm] Semi-fowlers Pulse Oximetry 96 97 93 Oxygen Delivery Method Room Air Room Air Sepsis Recent Fever Within 48 Hours Sepsis New/Unexplained Change in Mental Status Sepsis Action Taken by Long Term Medications Current Medication List: was personally reviewed by me Laboratory Data Attestation: I reviewed the patient's lab results. 06/18/23 16:00 06/18/23 16:00 Lab Results 06/18/23 06/18/23 06/18/23 Range/Units 16:00 16:00 16:00 WBC 6.53 (4.8-10.8) K/ul RBC 4.48 L (4.70-6.10) M/uL Hgb 13.7 L (14.0-18.0) g/dl Hct 40.1 L (42.0-52.0) % MCV 89.5 (80.0-100.0) fL MCH 30.6 (25.0-34.0) pg MCHC 34.2 (32.0-36.0) g/dL RDW Std Deviation 38.9 (36.4-46.3) fL RDW Coeff of Eric 11.9 (11.5-14.5) % Plt Count 228 (130-400) K/uL MPV 9.4 (9.4-12.4) fL Immature Gran % (Auto) 0.2 % Neut % (Auto) 80.6 % Lymph % (Auto) 10.9 % [place] % (Auto) 6.9 % Eos % (Auto) 0.8 % Baso % (Auto) 0.6 % Neut # (Auto) 5.27 (1.40-6.50) K/uL Lymph # (Auto) 0.71 L (1.2-3.4) K/uL [place] # (Auto) 0.45 (0.11-0.59) K/uL Eos # (Auto) 0.05 (0-0.50) K/uL Baso # (Auto) 0.04 (0-0.2) K/uL Immature Gran # (Auto) 0.01 (0.01-0.20) K/uL Sodium 131 L (136-145) mmol/L Potassium 4.6 (3.5-5.1) mmol/L Chloride 98 (98-107) mmol/L Carbon Dioxide 24 (21-32) mmol/L Anion Gap 9 (3-11) BUN 24 H (6-23) mg/dl Creatinine 1.43 H (0.6-1.4) mg/dl Est Cr Clr Drug Dosing 41.2 ml/min Est GFR ( Amer) 53.2 ml/min Est GFR (Non-Af Amer) 45.9 ml/min BUN/Creatinine Ratio 16.8 (10-20) Glucose 394 H* (70-99(Fasting)) mg/dl POC Glucose (70-99) mg/dl Calcium 9.5 (8.6-10.3) mg/dl Magnesium 1.8 (1.7-2.4) mg/dl Total Bilirubin 0.5 (0.2-1.0) mg/dl AST 23 (13-39) U/L ALT 40 (7-52) U/L Alkaline Phosphatase 144 H (34-104) U/L Troponin I High Sens 7.3 (0-20) pg/ml Total Protein 7.5 (6.0-8.3) gm/dl Albumin 4.0 (3.4-5.0) gm/dl Globulin 3.5 (2.5-4.0) gm/dl Albumin/Globulin Ratio 1.1 (0.9-2) Lipase 35 (11-82) U/L Urine Color Urine Appearance (Clear) Urine pH (4.5-7.5) Ur Specific [place] (1.000-1.030) Urine Protein (Negative) Urine Glucose (UA) (Negative) Urine Ketones (Negative) Urine Blood (Negative) Urine Nitrite (Negative) Urine Bilirubin (Negative) Urine Urobilinogen (Negative) Ur Leukocyte Esterase (Negative) Urine WBC (Auto) (0-5) /hpf Urine RBC (Auto) (0-4) /hpf U Hyaline Cast (Auto) (0-5) /lpf U Epithel Cells (Auto) (0-5) /lpf Urine Bacteria (Auto) (Negative) Anaplasma Smear See Comment Babesia Smear See Comment Lyme Disease IgG Ab Positive A (Negative) Lyme Disease IgM Ab Positive A (Negative) 06/18/23 06/18/23 06/18/23 Range/Units 16:15 18:05 19:40 WBC (4.8-10.8) K/ul RBC (4.70-6.10) M/uL Hgb (14.0-18.0) g/dl Hct (42.0-52.0) % MCV (80.0-100.0) fL MCH (25.0-34.0) pg MCHC (32.0-36.0) g/dL RDW Std Deviation (36.4-46.3) fL RDW Coeff of Eric (11.5-14.5) % Plt Count (130-400) K/uL MPV (9.4-12.4) fL Immature Gran % (Auto) % Neut % (Auto) % Lymph % (Auto) % [place] % (Auto) % Eos % (Auto) % Baso % (Auto) % Neut # (Auto) (1.40-6.50) K/uL Lymph # (Auto) (1.2-3.4) K/uL [place] # (Auto) (0.11-0.59) K/uL Eos # (Auto) (0-0.50) K/uL Baso # (Auto) (0-0.2) K/uL Immature Gran # (Auto) (0.01-0.20) K/uL Sodium (136-145) mmol/L Potassium (3.5-5.1) mmol/L Chloride (98-107) mmol/L Carbon Dioxide (21-32) mmol/L Anion Gap (3-11) BUN (6-23) mg/dl Creatinine (0.6-1.4) mg/dl Est Cr Clr Drug Dosing ml/min Est GFR ( Amer) ml/min Est GFR (Non-Af Amer) ml/min BUN/Creatinine Ratio (10-20) Glucose (70-99(Fasting)) mg/dl POC Glucose 172 H 155 H (70-99) mg/dl Calcium (8.6-10.3) mg/dl Magnesium (1.7-2.4) mg/dl Total Bilirubin (0.2-1.0) mg/dl AST (13-39) U/L ALT (7-52) U/L Alkaline Phosphatase (34-104) U/L Troponin I High Sens (0-20) pg/ml Total Protein (6.0-8.3) gm/dl Albumin (3.4-5.0) gm/dl Globulin (2.5-4.0) gm/dl Albumin/Globulin Ratio (0.9-2) Lipase (11-82) U/L Urine Color Yellow Urine Appearance Clear (Clear) Urine pH 5.5 (4.5-7.5) Ur Specific [place] 1.033 H (1.000-1.030) Urine Protein Trace H (Negative) Urine Glucose (UA) 3+ H (Negative) Urine Ketones Negative (Negative) Urine Blood Negative (Negative) Urine Nitrite Negative (Negative) Urine Bilirubin Negative (Negative) Urine Urobilinogen Negative (Negative) Ur Leukocyte Esterase Negative (Negative) Urine WBC (Auto) 0 (0-5) /hpf Urine RBC (Auto) 0-4 (0-4) /hpf U Hyaline Cast (Auto) 0 (0-5) /lpf U Epithel Cells (Auto) 0-5 (0-5) /lpf Urine Bacteria (Auto) Negative (Negative) Anaplasma Smear Babesia Smear Lyme Disease IgG Ab (Negative) Lyme Disease IgM Ab (Negative) Administered Medications Doxycycline Hyclate 100 mg/ (Dextrose) 110 mls @ 50 mls/hr IV Q12 COBY Stop: 06/28/23 19:44 Last Admin: 06/18/23 19:52 Dose: 50 mls/hr Documented By: AB Tramadol HCl (Tramadol Hcl 50 Mg Tablet) 50 mg PO Q6H PRN PRN Reason: Pain Stop: 07/18/23 21:03 Last Admin: 06/18/23 21:09 Dose: 50 mg Documented By: Discontinued Medications Amlodipine Besylate (Amlodipine Besylate 5 Mg Tab) 5 mg PO NOW ONE Stop: 06/18/23 19:26 Last Admin: 06/18/23 19:47 Dose: 5 mg Documented By: Sodium Chloride (Nss 1000ml) 1,000 mls @ 999 mls/hr IV .Q1H1M ONE Stop: 06/18/23 17:51 Last Infusion: 06/18/23 17:55 Dose: 0 mls/hr Documented By: Admin: 06/18/23 17:17 Dose: 999 mls/hr Documented By: LISA Ceftriaxone Sodium (Rocephin) 2,000 mg in 70 mls @ 140 mls/hr IV NOW STA Stop: 06/18/23 18:47 Last Infusion: 06/18/23 19:25 Dose: 0 mls/hr Documented By: Admin: 06/18/23 18:38 Dose: 140 mls/hr Documented By: LILY Insulin Human Regular (Novolin-R Insulin Per Unit Charge) 8 units IV NOW STA Stop: 06/18/23 17:04 Last Admin: 06/18/23 17:17 Dose: 8 units Documented By: LISA Co-signed By: Imaging Data Radiologist's Impression: Abdomen/Pelvis CT 06/18/23 16:[address] WITHOUT CONTRAST CT DOSE: 1065.30 mGy.cm HISTORY: Acute low back pain in a patient with history of kidney stones back pain, hist stones TECHNIQUE: Multiaxial CT images of the abdomen and pelvis were performed without contrast. A dose lowering technique was utilized adhering to the principles of ALARA. COMPARISON STUDY: 12/29/2018 FINDINGS: Moderate coronary artery calcifications. Calcified subcarinal lymph nodes with calcified pulmonary granulomata. Mild subsegmental right basilar atelectasis versus scarring. No free air. Calcified granulomata the spleen which measures in the upper limits of normal in size. Unremarkable pancreas, gallb ladder, adrenal glands and liver. Cortical thinning of the kidneys. Indeterminate exophytic 1.5 cm lesion of the superior pole left kidney with Hounsfield of 35. This is noted within the distribution of a previously noted simple cyst. A few cysts of the kidneys measure up to 5.5 cm on the right. 3 mm nonobstructing calculus in the interpolar right kidney. No ureteral calculi or hydronephrosis. Urinary bladder wall thickening with partial distention. Prostatectomy. Small fat filled hernias. The left inguinal hernia contains nonobstructed loop of large bowel. Atherosclerosis of the aorta. No lymphadenopathy. No bowel obstruction or bowel wall thickening. Mild colonic fecal retention. Normal appendix. No acute fracture. Lumbar levoscoliosis. IMPRESSION: 1. Nonobstructing right renal calculus. No ureteral calculi or hydronephrosis. 2. Indeterminate 1.5 cm lesion of the superior pole left kidney. Correlation with a nonemergent follow-up renal ultrasound recommended. 3. No bowel obstruction or bowel wall thickening. 4. Left inguinal hernia contains a nonobstructed loop of colon. 5. Additional findings as above. ACT 112: Negative or not required by law. The above report was generated using voice recognition software. It may contain grammatical, syntax or spelling errors. Electronically signed by: Sanju Lemus M.D. 06/18/2023 4:47 PM Chest X-Ray 06/18/23 16:00 XR chest 1V portable HISTORY: 82 years-old Male weakness acute weakness COMPARISON: 08/13/2020 TECHNIQUE: AP view of the chest FINDINGS: Cardiac silhouette is enlarged. Mild right hemidiaphragmatic elevation. No pneumothorax, pleural effusion, airspace consolidation or pulmonary edema. Degenerative changes of the shoulders and spine. IMPRESSION: No acute process. ACT 112: Negative or not required by law. The above report was generated using voice recognition software. It may contain grammatical, syntax or spelling errors. Electronically signed by: Sanju Lemus M.D. 06/18/2023 5:16 PM Discharge Plan Visit Data Chief Complaint: Back Injury/Pain Stated Complaint: BACK PAIN ED Provider: Gurpreet Garcia Discharge Problem: Acute hyperglycemia, Acute dehydration, Hyponatremia, Acute Lyme disease, Leukocytosis, Upper back pain Patient Disposition: Admitted As Inpatient Condition: Fair Forms Stand Alone Forms: [employer] Prescriptions Prescriptions: No Action (DME) blood-glucose meter [OneTouch Ultra2 Meter] Misc See Rx Instructions .Route Qty: 1 0RF Rx Instructions: TEST BSG TWICE DAILY; DX CODE- E11.9 (DME) blood sugar diagnostic Strip See Dose Instructions .ROUTE .MEDSUPPLY Qty: 300 3RF Dose Instruction: As directed Rx Instructions: test 3 times daily DX: E11.9 insulin glargine [Lantus Solostar U-100 Insulin] 100 unit/mL (3 mL) insulin pen 38 unit SC QAM Qty: 15 3RF Rx Instructions: Take 38 units once daily Subcutaneously daily in the morning; (DME) pen needle, diabetic 32 gauge x 5/32" needle See Rx Instructions .Route Qty: 100 3RF Rx Instructions: Use with Lantus injections once daily. dx: E11.65 levothyroxine 112 mcg tablet 112 mcg PO DAILYBB Qty: 90 3RF aspirin [Adult Low Dose Aspirin] 81 mg tablet,delayed release (DR/EC) 81 mg PO DAILY rosuvastatin 10 mg tablet 10 mg PO DAILY Qty: 90 3RF Hold Instructions: pt stopped Trulicity 1.5 mg/0.5 mL pen injector 1.5 mg subcut WK Qty: 4 5RF Rx Instructions: On Saturdays (DME) lancets [OneTouch UltraSoft Lancets] misc See Dose Instructions .ROUTE .MEDSUPPLY Qty: 100 5RF Dose Instruction: As directed Rx Instructions: Test twice daily Referrals Referrals: Aurea Das CRNP [Primary Care Provider] - Leukocytosis Qualifiers: Leukocytosis type: unspecified Qualified Code(s): D72.829 - Elevated white blood cell count, unspecified
[2023-06-18 16:31] LABS: Basophils # (auto) 0.04 K/uL (0-0.2); Basophils % (auto) 0.6 %; Eosinophils # (auto) 0.05 K/uL (0-0.50); Eosinophils % (auto) 0.8 %; Hematocrit (blood only) 40.1 % (42.0-52.0); Hemoglobin 13.7 g/dl (14.0-18.0); Immature Granulocytes # (auto) 0.01 K/uL (0.01-0.20); Immature Granulocytes % (auto) 0.2 %; Lymphocytes # (auto) 0.71 K/uL (1.2-3.4); Lymphocytes % (auto) 10.9 %; Mean Corpuscular Hemoglobin 30.6 pg (25.0-34.0); Mean Corpuscular Hgb Conc 34.2 g/dL (32.0-36.0); Mean Corpuscular Volume 89.5 fL (80.0-100.0); Mean Platelet Volume 9.4 fL (9.4-12.4); Monocytes # (auto) 0.45 K/uL (0.11-0.59); Monocytes % (auto) 6.9 %; Neutrophils # (auto) 5.27 K/uL (1.40-6.50); Neutrophils % (auto) 80.6 %; Platelet Count 228 K/uL (130-400); RDW Coefficient of Variation 11.9 % (11.5-14.5); RDW Standard Deviation 38.9 fL (36.4-46.3); Red Blood Count 4.48 M/uL (4.70-6.10); White Blood Count 6.53 K/ul (4.8-10.8)
[2023-06-18 16:35] LABS: Appearance Urine Clear (Clear); Bacteria Urine Automated Negative (Negative); Bilirubin Urine Negative (Negative); Blood Urine Negative (Negative); Cast Urine Automated 0 /lpf (0-5); Color Urine Yellow; Epithelial Cell Urine Auto 0-5 /lpf (0-5); Glucose Urine UA 3+ (Negative); Ketones Urine Negative (Negative); Leukocyte Esterase Urine Negative (Negative); Nitrite Urine Negative (Negative); Protein Urine Trace (Negative); RBC Urine Automated 0-4 /hpf (0-4); Specific Gravity Urine 1.033 (1.000-1.030); Urobilinogen Urine Negative (Negative); WBC Urine Automated 0 /hpf (0-5); pH Urine 5.5 (4.5-7.5)
[2023-06-18 16:48] LABS: Bilirubin,Total 0.5 mg/dl (0.2-1.0); Calcium 9.5 mg/dl (8.6-10.3); Magnesium 1.8 mg/dl (1.7-2.4); Potassium 4.6 mmol/L (3.5-5.1)
--- NOTE | 2023-06-18 16:49 | CT Scan Report ---
ABDOMEN AND PELVIS CT WITHOUT CONTRAST CT DOSE: 1065.30 mGy.cm HISTORY: Acute low back pain in a patient with history of kidney stones back pain, hist stones TECHNIQUE: Multiaxial CT images of the abdomen and pelvis were performed without contrast. A dose lo wering technique was utilized adhering to the principles of ALARA. COMPARISON STUDY: 12/29/2018 FINDINGS: Moderate coronary artery calcifications. Calcified subcarinal lymph nodes with calcified pu lmonary granulomata. Mild subsegmental right basilar atelectasis versus scarring. No free air. Calcif ied granulomata the spleen which measures in the upper limits of normal in size. Unremarkable pancrea s, gallbladder, adrenal glands and liver. Cortical thinning of the kidneys. Indeterminate exophytic 1.5 cm lesion of the superior pole left kid abdirizak with Hounsfield of 35. This is noted within the distribution of a previously noted simple cyst. A few cysts of the kidneys measure up to 5.5 cm on the right. 3 mm nonobstructing calculus in the inte rpolar right kidney. No ureteral calculi or hydronephrosis. Urinary bladder wall thickening with part ial distention. Prostatectomy. Small fat filled hernias. The left inguinal hernia contains nonobstruc hyun loop of large bowel. Atherosclerosis of the aorta. No lymphadenopathy. No bowel obstruction or bowel wall thickening. Mild colonic fecal retention. Normal appendix. No acut e fracture. Lumbar levoscoliosis. IMPRESSION: 1. Nonobstructing right renal calculus. No ureteral calculi or hydronephrosis. 2. Indeterminate 1.5 cm lesion of the superior pole left kidney. Correlation with a nonemergent follo w-up renal ultrasound recommended. 3. No bowel obstruction or bowel wall thickening. 4. Left inguinal hernia contains a nonobstructed loop of colon. 5. Additional findings as above. ACT 112: Negative or not required by law. The above report was generated using voice recognition software. It may contain grammatical, syntax o r spelling errors. Electronically signed by: Sanju Lemus M.D. 06/18/2023 4:47 PM
[2023-06-18] MEDS ORDERED: SODIUM CHLORIDE 0.9% 1000ML 1,000 ML IV ONE (16:51)
[2023-06-18 16:57] LABS: Albumin Globulin Ratio 1.1 (0.9-2); BUN Creatinine Ratio 16.8 (10-20); Creatinine Clr Calc Pharmacy 41.2 ml/min; Est GFR (African American) 53.2 ml/min; Est GFR (Non-African American) 45.9 ml/min; Globulin 3.5 gm/dl (2.5-4.0); Total Protein 7.5 gm/dl (6.0-8.3); Troponin I High Sensitivity 7.3 pg/ml (0-20)
[2023-06-18] MEDS ORDERED: NovoLIN-R INSULIN PER UNIT CHARGE IV STA (17:03)
--- NOTE | 2023-06-18 17:18 | XRay Report ---
XR chest 1V portable HISTORY: 82 years-old Male weakness acute weakness COMPARISON: 08/13/2020 TECHNIQUE: AP view of the chest FINDINGS: Cardiac silhouette is enlarged. Mild right hemidiaphragmatic elevation. No pneumothorax, pleural effu dain, airspace consolidation or pulmonary edema. Degenerative changes of the shoulders and spine. IMPRESSION: No acute process. ACT 112: Negative or not required by law. The above report was generated using voice recognition software. It may contain grammatical, syntax o r spelling errors. Electronically signed by: Sanju Lemus M.D. 06/18/2023 5:16 PM
[2023-06-18 18:04] LABS: Lyme Ab IgG w/WB Rflx Positive (Negative); Lyme Ab IgM w/WB Rflx Positive (Negative)
[2023-06-18] MEDS ORDERED: cefTRIAXone SODIUM 2,000 MG/70 ML BAG IV STA (18:18)
--- NOTE | 2023-06-18 18:44 | History & Physical Report ---
Date of Service June 18, 2023 Assessment & Plan (1) Lyme disease: Plan: Muscle aches, arthralgias 2/2 Lyme disease Lyme IgG and IgM positive. No prior exposure or history per patient. No rash Received Rocephin in ER. No neurologic symptoms, no heart block. Transition to Doxy [address] place on IV while inpatient, convert to oral on discharge No leukocytosis Creatinine baseline approximately 1.46 Admitting creatinine 1.43 UA uninfected appearing CTA/P: Superior left kidney lesion recommended for nonemergent renal ultrasound. Left inguinal hernia with nonobstructed loop of colon. No SBO. No obstructing calculi. Urinary bladder wall thickening and partial distal figueroa, s/p prostatectomy. CXR: No acute finding EKG: Normal sinus rhythm. QTc 441, rate 81. No territorial signs of ischemia. No heart block Uncontrolled type 2 diabetes mellitus Patient reports difficult, control blood sugars. Runs 200s during the day, and then notes he is running in the 50s at night and has to wake up to eat candy bars or other snacks to bring his sugar back Patient is not able to take metformin due to CKD Does tolerate dulaglutide well, takes insulin glargine as directed 38 units nightly Due to highs during the day and lows at night recommend transitioning away from Trulicity plus basal only regimen to basal bolus +/- dulaglutide Patient is admitted in the evening following hyperglycemia over 400 and requiring IV insulin for initial blood sugar control. Patient does require extensive treatment and need to establish his basal bolus regimen/tolerance and pharmacy is not currently open to send a bolus insulin 2. While he does not need to be admitted for his Lyme disease as he has no signs of heart block or neurologic symptoms, will admit for teaching and DM management adjustments DM diet, goal BSG 110-150 Patient does check his sugars and feels he would be able to to tolerate a mealtime insulin if the regimen was made simple and straightforward for him We will convert total daily dose of 38 units in split as basal bolus Continue 20 units Lantus every morning, CF 40/ratio 15 at this time Based on above regimen intolerance recommend discharging on short acting insulin with meals with a clear dose +/- 2 unit adjustment based on meal size Has recurrently been with A1c greater than 10, recommend follow-up with [facility] endocrinology for additional adjustments and titration as outpatient Hyperlipidemia Continue Crestor Hypothyroidism Continue Synthroid DVT prophylaxis: SCDs Disposition: Medical surgical Diet: DM CODE STATUS: DNR/DNI, discussed with patient at bedside (2) DM II (diabetes mellitus, type II), controlled: (3) HLD (hyperlipidemia): (4) Hypothyroidism: (5) History of prostate cancer: History of Present Illness Primary Care Provider: KINA Ortiz Cornell is an 82-year-old male with past medical history of type II DM, peripheral artery disease, type 2 diabetes on insulin, hyperlipidemia, hypothyroidism who presents with 5 days of diffuse low back pain worsened after meals. Cornell is seen at the bedside with his son present. He reports he has had muscle aches for around 1 week and has been taking around 3000 g of Tylenol per day which helps temporarily but has not improved her symptoms overall. He [place]. Denies rash. Denies headache. Denies tremor, numbness/tingling also notes his blood sugars have been elevated normally they are in the low 200s, has been as high as 3004 100s in the last 48 hours. He reports he takes a weekly injectable and long-acting insulin and has had trouble with blood sugars in the 200s during the day, but then he is low in the 50s at night and has to eat candy bars or snack to bring his sugar back up. He has never had a seizure. Denies [place]. Reports he does like watermelon and cantaloupe, tries to avoid carbs but does not very diligent in doing so. He has never been on a bolus insulin regimen outside of the hospital, feels he could probably do this if the instructions were clear. He does check his blood sugar daily and does not have difficulty doing this. Medical History: Reviewed Medications: Reviewed Surgical History: Reviewed Family history: Reviewed Allergies: Reviewed Social History: No tobacco/alcohol use Code Status: DNR/DNI Allergies Allergy/AdvReac Type Severity Reaction Status Date / Time No Known Allergies Allergy Unknown Verified 06/18/23 17:07 Home Medications Medication Instructions Recorded Confirmed Type lancets (TermScoutTouch UltraSoft #100 ea 08/19/19 06/14/23 Rx Lancets) blood-glucose meter (OneTouch #1 ea 07/29/22 06/14/23 Rx Ultra2 Meter) aspirin 81 mg tablet,delayed 81 mg PO DAILY 02/07/23 06/18/23 History release (Adult Low Dose Aspirin) dulaglutide 1.5 mg/0.5 mL 1.5 mg (0.5 mL) subcut WK #4 02/07/23 06/18/23 Rx subcutaneous pen injector syringes rosuvastatin 10 mg tablet 10 mg PO DAILY #90 tabs 02/07/23 06/18/23 Rx blood sugar diagnostic #300 ea 02/27/23 06/14/23 Rx insulin glargine 100 unit/mL (3 38 unit (0.38 mL) SC QAM #15 mL 04/07/23 06/18/23 Rx mL) subcutaneous pen (Lantus Solostar U-100 Insulin) pen needle, diabetic 32 gauge x #100 ea 04/07/23 06/14/23 Rx /32" levothyroxine 112 mcg tablet 112 mcg PO DAILYBB #90 tabs 04/13/23 06/18/23 Rx Past Med/Surg History Medical History (Updated 06/18/23 @ 19:16 by Ricardo Albright MD) KEE (acute kidney injury) Anemia DM (diabetes mellitus), type 2, uncontrolled, periph vascular complic DM II (diabetes mellitus, type II), controlled IDDM History of COVID-19 08/2020 - no hospitalization. no current symptoms History of nephrolithiasis History of prostate cancer 15 years ago; surgery + radiation HLD (hyperlipidemia) Hyperosmolar hyperglycemic state (HHS) Hyperosmolar hyperglycemic state (HHS) Hypothyroidism Osteopenia Peripheral arterial occlusive disease Surgical History History of cataract surgery RT History of colonoscopy History of lithotripsy History of nephrolithotomy with removal of calculi History of prostate biopsy History of prostate surgery S/P trigger finger release Family History Other CHF (congestive heart failure) Cardiac pacemaker in situ DM II (diabetes mellitus, type II), controlled Nephrolithiasis No family history of adverse response to anesthesia No pertinent family history Prostate cancer Denies family history of Breast cancer Colorectal cancer Social History (Updated 06/14/23 @ 07:19 by BRYNN Gutierrez) Smoking Status: Never smoker Second Hand Exposure: Yes; Do You Dip or Chew Tobacco: No; Hx Alcohol Use: No Hx Substance Use: No Preferred Language: Albanian Communication Ability: Effective Hearing Ability: Normal 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 NAD. Cooperative. HEENT: Atraumatic, normocephalic. Pulm: CTAB A&P. -wheezes, -rales, -rhonchi. Symmetrical chest rise. No increased work of breathing. No respiratory distress. Cardiac: RRR, -mrg. Radial pulses intact and symmetrical. Abdominal: Nontender, nondistended, soft. BS present. Extremities: Sensation slightly decreased but symmetrically intact in lower extremities bilaterally. Sensation intact in hands bilaterally. [employer] strength intact. Moves upper and lower extremities equally Results & Data Results & Data Vital Signs (Past 12 Hours) Vital Signs Temp Pulse Pulse Resp BP BP Pulse Ox 06/18/23 17:20 81 18 169/82 H 97 06/18/23 16:17 76 18 152/90 H 96 06/18/23 16:02 96 06/18/23 15:02 85 20 148/88 H 95 06/18/23 15:07 36.7 C 95 H 17 142/79 H 97 O2 Del Method 06/18/23 17:20 Room Air 06/18/23 16:17 06/18/23 16:02 Room Air 06/18/23 15:02 Room Air 06/18/23 15:07 Room Air PG Care Time/CCT Total # of Minutes Spent Total Time Spent with Patient: Total time spent is greater than 50% in coordination of care (as documented) at patient's floor/unit and/or counseling patient: Coding Level of Care Code 36105 INT INP/OBS CARE 375MIN Diagnoses Lyme disease A69.20 DM II (diabetes mellitus, type II), controlled E11.9 Diabetes mellitus custodial insulin use: without custodial use Diabetes mellitus complication status: without complication HLD (hyperlipidemia) E78.5 Hyperlipidemia type: unspecified Hypothyroidism E03.9 Hypothyroidism type: acquired History of prostate cancer Z85.46 (2) DM II (diabetes mellitus, type II), controlled Diabetes mellitus custodial insulin use: without remote computer terminal operator use Diabetes mellitus complication status: without complication Qualified Code(s): E11.9 - Type 2 diabetes mellitus without complications (3) HLD (hyperlipidemia) Hyperlipidemia type: unspecified Qualified Code(s): E78.5 - Hyperlipidemia, unspecified (4) Hypothyroidism Hypothyroidism type: acquired Qualified Code(s): E03.9 - Hypothyroidism, unspecified
[2023-06-18] MEDS ORDERED: GLUCOSE 10 TAB/TUBE PO PRN (19:14)
[2023-06-18] MEDS ORDERED: GLUCOSE 40% GEL 15 GM TUBE PO PRN (19:14)
[2023-06-18] MEDS ORDERED: GLUCAGON FOR INJ 1 MG VIAL SQ PRN (19:14)
[2023-06-18] MEDS ORDERED: CARBOHYDRATES FOR HYPOGLYCEMIA PO PRN (19:14)
[2023-06-18] MEDS ORDERED: DEXTROSE 50% 50 ML SYRINGE IV PRN (19:14)
[2023-06-18] MEDS ORDERED: amLODIPine BESYLATE 5 MG TAB PO ONE (19:25)
[2023-06-18] MEDS ORDERED: DOXYCYCLINE HYCLATE 100 MG in DEXTROSE 5% 100 ML IV SCH (19:45)
[2023-06-18] MEDS: traMADol HCL 50 MG TABLET PO PRN (21:09)
[2023-06-18] MEDS ORDERED: ONDANSETRON INJ 2 MG/ML 2 ML VIAL IV PRN (22:27)
[2023-06-18] MEDS: ACETAMINOPHEN 325 MG TAB PO PRN (22:43)
[2023-06-18] MEDS: INSULIN ASPART PER UNIT CHARGE SC SCH (22:43)
[2023-06-18] MEDS ORDERED: INSULIN HUMAN NPH SC STA (22:54)
[2023-06-19] MEDS: traMADol HCL 50 MG TABLET PO PRN (03:06)
[2023-06-19] MEDS: LEVOTHYROXINE SODIUM 112 MCG TABLET PO SCH (06:05)
[2023-06-19 06:52] LABS: Basophils # (auto) 0.05 K/uL (0-0.2); Basophils % (auto) 0.4 %; Eosinophils # (auto) 0.02 K/uL (0-0.50); Eosinophils % (auto) 0.2 %; Hematocrit (blood only) 40.8 % (42.0-52.0); Hemoglobin 14.1 g/dl (14.0-18.0); Immature Granulocytes # (auto) 0.05 K/uL (0.01-0.20); Immature Granulocytes % (auto) 0.4 %; Lymphocytes # (auto) 0.91 K/uL (1.2-3.4); Lymphocytes % (auto) 7.4 %; Mean Corpuscular Hemoglobin 30.9 pg (25.0-34.0); Mean Corpuscular Hgb Conc 34.6 g/dL (32.0-36.0); Mean Corpuscular Volume 89.5 fL (80.0-100.0); Mean Platelet Volume 9.4 fL (9.4-12.4); Monocytes # (auto) 0.65 K/uL (0.11-0.59); Monocytes % (auto) 5.3 %; Neutrophils # (auto) 10.69 K/uL (1.40-6.50); Neutrophils % (auto) 86.3 %; Platelet Count 259 K/uL (130-400); RDW Coefficient of Variation 12.1 % (11.5-14.5); Red Blood Count 4.56 M/uL (4.70-6.10); White Blood Count 12.37 K/ul (4.8-10.8)
[2023-06-19 07:18] LABS: BUN Creatinine Ratio 14.5 (10-20); Calcium 9.9 mg/dl (8.6-10.3); Creatinine Clr Calc Pharmacy 40.6 ml/min; Est GFR (African American) 52.3 ml/min; Est GFR (Non-African American) 45.2 ml/min; Potassium 4.6 mmol/L (3.5-5.1)
[2023-06-19] MEDS: ACETAMINOPHEN 325 MG TAB PO PRN (07:54)
[2023-06-19] MEDS: ROSUVASTATIN CALCIUM 10 MG TAB PO SCH (08:36)
[2023-06-19] MEDS: ASPIRIN 81 MG ECTAB PO SCH (08:36)
[2023-06-19] MEDS: INSULIN ASPART PER UNIT CHARGE SC SCH ×4 (08:36→21:32)
[2023-06-19] MEDS ORDERED: LANTUS PER UNIT CHARGE SQ SCH (09:00)
[2023-06-19] MEDS: INSULIN HUMAN NPH SC SCH ×2 (10:27→21:32)
[2023-06-19] MEDS: DOXYCYCLINE HYCLATE 100 MG CAP PO SCH ×2 (10:28→21:31)
--- NOTE | 2023-06-19 12:35 | Electrocardiogram Report ---
Test Reason : Blood Pressure : / mmHG Vent. Rate : 081 BPM Atrial Rate : 081 BPM P-R Int : 170 ms QRS Dur : 070 ms QT Int : 380 ms P-R-T Axes : 022 006 037 degrees QTc Int : 441 ms Normal sinus rhythm Cannot rule out Anterior infarct , age undetermined Abnormal ECG When compared with ECG of 06-APR-2022 09:46, No significant change Confirmed by Jose Hernandez ([id number]) on 06/19/2023 12:34:31 PM Referred By: REFERRED SELF Confirmed By:Jose Hernandez
[2023-06-19] MEDS: SODIUM CHLORIDE 0.9% 1000ML 1,000 ML IV SCH (13:51)
--- NOTE | 2023-06-19 16:32 | Hospitalist Progress Note ---
Date of Service June 19, 2023 Assessment & Plan (1) Lyme disease: Plan: Continue doxycycline for 4 weeks. Outpatient follow-up warranted. Overall improved (2) DM II (diabetes mellitus, type II), controlled: Plan: Insulin switched to NPH twice daily dosing. ADA diet. Sliding scale coverage as needed (3) HLD (hyperlipidemia): Plan: Stable. Continue statin therapy (4) Hypothyroidism: Plan: Stable. Continue thyroid replacement therapy Plan Hopeful discharge to home tomorrow, June 25 Admission and Anticipated Discharge Date Admission Date: June 18, 2023 Subjective Alert and oriented. Insulin changed to NPH dosing twice daily at breakfast and suppertime. He is aware of the left renal lesion that appears to be a cyst. He states this has been evaluated repeatedly in the past. He appears somewhat volume depleted and IV fluids have been started. He remains on doxycycline which has been switched to oral dosing. Hopefully he can go home tomorrow, June 20 Review of Systems Review of Systems: Constitutional-no fever or chills ENT-no blurred vision, no double vision, no epistaxis, no sore throat Respiratory-no cough, no wheezing, no shortness of breath Cardiac-no palpitations, no chest pain, no syncope GI-no nausea, vomiting, diarrhea, melena, hematochezia -no urinary retention, no urinary incontinence, no dysuria, no hematuria Musculoskeletal-no joint pain, no muscle tenderness Skin-no bruising, no rashes, no pruritus Neuro-generalized weakness Psych-no depression, no anxiety Physical Exam Physical Exam: General-alert and oriented x3, no fevers, no chills HEENT-head atraumatic and normocephalic, pupils equal and reactive to light, extraocular muscles intact Neck-no lymphadenopathy or thyromegaly, trachea midline Chest-clear to auscultation percussion. No rales wheezing or rhonchi Cardiac-regular rate and rhythm, normal S1 and S2 Abdomen-normal bowel sounds, nontender, no hepatosplenomegaly Extremities-no cyanosis, clubbing, or edema Neuro-cranial nerves II through XII intact, motor and sensory function within normal limits, strength symmetrical with generalized weakness, no focal deficits Psych-normal affect, normal mood Results & Data Results & Data Vital Signs (Past 12 Hours) Vital Signs Temp Pulse Resp BP Pulse Ox O2 Del Method 06/19/23 15:28 36.6 C 74 18 120/69 99 Room Air 06/19/23 07:52 36.9 C 85 16 130/77 95 Room Air Laboratory Results 06/19/23 06:36 06/19/23 06:36 PG Care Time/CCT Total # of Minutes Spent Total Time Spent with Patient: Total time spent is greater than 50% in coordination of care (as documented) at patient's floor/unit and/or counseling patient: Coding Level of Care Code 90021 SUB INP/OBS CARE 3/50MIN Diagnoses Lyme disease A69.20 DM II (diabetes mellitus, type II), controlled E11.9 Diabetes mellitus residential insulin use: without residential use Diabetes mellitus complication status: without complication HLD (hyperlipidemia) E78.5 Hyperlipidemia type: unspecified Hypothyroidism E03.9 Hypothyroidism type: acquired (2) DM II (diabetes mellitus, type II), controlled Diabetes mellitus residential insulin use: without residential use Diabetes mellitus complication status: without complication Qualified Code(s): E11.9 - Type 2 diabetes mellitus without complications (3) HLD (hyperlipidemia) Hyperlipidemia type: unspecified Qualified Code(s): E78.5 - Hyperlipidemia, unspecified (4) Hypothyroidism Hypothyroidism type: acquired Qualified Code(s): E03.9 - Hypothyroidism, unspecified
[2023-06-20] MEDS: SODIUM CHLORIDE 0.9% 1000ML 1,000 ML IV SCH ×2 (01:31→16:27)
[2023-06-20] MEDS: LEVOTHYROXINE SODIUM 112 MCG TABLET PO SCH (05:42)
[2023-06-20 06:29] LABS: Basophils # (auto) 0.04 K/uL (0-0.2); Basophils % (auto) 0.6 %; Eosinophils # (auto) 0.13 K/uL (0-0.50); Eosinophils % (auto) 1.9 %; Hematocrit (blood only) 35.3 % (42.0-52.0); Immature Granulocytes # (auto) 0.02 K/uL (0.01-0.20); Immature Granulocytes % (auto) 0.3 %; Lymphocytes % (auto) 18.9 %; Mean Corpuscular Hemoglobin 30.7 pg (25.0-34.0); Mean Corpuscular Volume 90.3 fL (80.0-100.0); Mean Platelet Volume 9.4 fL (9.4-12.4); Monocytes # (auto) 0.63 K/uL (0.11-0.59); Monocytes % (auto) 9.2 %; Neutrophils # (auto) 4.75 K/uL (1.40-6.50); Neutrophils % (auto) 69.1 %; Platelet Count 207 K/uL (130-400); RDW Coefficient of Variation 12.2 % (11.5-14.5); RDW Standard Deviation 39.8 fL (36.4-46.3); Red Blood Count 3.91 M/uL (4.70-6.10); White Blood Count 6.87 K/ul (4.8-10.8)
[2023-06-20 06:49] LABS: BUN Creatinine Ratio 21.2 (10-20); Calcium 8.7 mg/dl (8.6-10.3); Creatinine Clr Calc Pharmacy 44.6 ml/min; Est GFR (African American) 58.6 ml/min; Est GFR (Non-African American) 50.6 ml/min; Potassium 4.2 mmol/L (3.5-5.1)
[2023-06-20] MEDS: ROSUVASTATIN CALCIUM 10 MG TAB PO SCH (08:42)
[2023-06-20] MEDS: DOXYCYCLINE HYCLATE 100 MG CAP PO SCH (08:42)
[2023-06-20] MEDS: ASPIRIN 81 MG ECTAB PO SCH (08:42)
[2023-06-20] MEDS: INSULIN HUMAN NPH SC SCH (08:43)
[2023-06-20] MEDS: INSULIN ASPART PER UNIT CHARGE SC SCH ×2 (08:47→12:45)
--- NOTE | 2023-06-20 13:42 | Discharge Summary ---
Date of Service June 20, 2023 Admission HPI Per Admitting Provider Cornell is an 82-year-old male with past medical history of type II DM, peripheral artery disease, type 2 diabetes on insulin, hyperlipidemia, hypothyroidism who presents with 5 days of diffuse low back pain worsened after meals. Cornell is seen at the bedside with his son present. He reports he has had muscle aches for around 1 week and has been taking around 3000 g of Tylenol per day which helps temporarily but has not improved her symptoms overall. He reports [place] does [place] area. Denies rash. Denies headache. Denies tremor, numbness/tingling also notes his blood sugars have been elevated normally they are in the low 200s, has been as high as 3004 100s in the last 48 hours. He reports he takes a weekly injectable and long-acting insulin and has had trouble with blood sugars in the 200s during the day, but then he is low in the 50s at night and has to eat candy bars or snack to bring his sugar back up. He has never had a seizure. Denies [place]. Reports he does like watermelon and cantaloup e, tries to avoid carbs but does not very diligent in doing so. He has never been on a bolus insulin regimen outside of the hospital, feels he could probably do this if the instructions were clear. He does check his blood sugar daily and does not have difficulty doing this. Medical History: Reviewed Medications: Reviewed Surgical History: Reviewed Family history: Reviewed Allergies: Reviewed Social History: No tobacco/alcohol use Code Status: DNR/DNI Principal Diagnosis Lyme disease Discharge Exam General-alert and oriented x3, no fevers, no chills HEENT-head atraumatic and normocephalic, pupils equal and reactive to light, extraocular muscles intact Neck-no lymphadenopathy or thyromegaly, trachea midline Chest-clear to auscultation percussion. No rales wheezing or rhonchi Cardiac-regular rate and rhythm, normal S1 and S2 Abdomen-normal bowel sounds, nontender, no hepatosplenomegaly Extremities-no cyanosis, clubbing, or edema Neuro-cranial nerves II through XII intact, motor and sensory function within normal limits, strength symmetrical with generalized weakness, no focal deficits Psych-normal affect, normal mood Discharge Data Allergies Allergy/AdvReac Type Severity Reaction Status Date / Time No Known Allergies Allergy Unknown Verified 06/18/23 17:07 Consultations 06/18/23 18:36 ED Decision to Admit Stat Ordered Studies 06/18/23 16:00 CT abd pelvis wo con Stat Hospital Course (1) Lyme disease: Continue doxycycline for 4 weeks. Outpatient follow-up warranted. Overall improved (2) DM II (diabetes mellitus, type II), controlled: Insulin switched to NPH twice daily dosing. Dosage down titrated today, June 20. ADA diet. Sliding scale coverage as needed. (3) HLD (hyperlipidemia): Stable. Continue statin therapy (4) Hypothyroidism: Stable. Continue thyroid replacement therapy (5) Chronic kidney disease, stage III (moderate): Stable. Monitor intake and output. Serial labs Plan Home todayJune 20. Continue doxycycline for a total of 4 weeks Total Time Total Time Spent Total Time Spent (In Minutes): 45 minutes Discharge Plan Discharge Items Patient Disposition: Home - Self-Care Reason For Visit: HYPERGLYCEMIA, LYME+ Discharge Diagnosis: Lyme disease Condition on Discharge: Good Activity: Resume your previous activity Non-emergency contact: Primary Care Provider Call non-emergency contact if: your symptoms worsen Follow-up/Referrals: Aurea Das CRNP [Primary Care Provider] - Diet: Carb Consistent or DM2 Addtl Attending Provider Instructions: Take doxycycline for 4 weeks Pending Studies at Discharge: No Stand-Alone Forms: My Immediately, Smoking Cessation Medications and DC Order Prescriptions: New doxycycline hyclate 100 mg Capsule 100 mg PO BID Qty: 56 0RF insulin NPH isoph U-100 human 100 unit/mL (3 mL) insulin pen 10 unit subcut BID Qty: 15 1RF Continued (DME) blood-glucose meter [OneTouch Ultra2 Meter] [facility] See Rx Instructions .Route Qty: 1 0RF Rx Instructions: TEST BSG TWICE DAILY; DX CODE- E11.9 (DME) blood sugar diagnostic Strip See Dose Instructions .ROUTE .MEDSUPPLY Qty: 300 3RF Dose Instruction: As directed Rx Instructions: test 3 times daily DX: E11.9 insulin glargine [Lantus Solostar U-100 Insulin] 100 unit/mL (3 mL) insulin pen 38 unit SC QAM Qty: 15 3RF Rx Instructions: Take 38 units once daily Subcutaneously daily in the morning; (DME) pen needle, diabetic 32 gauge x 5/32" needle See Rx Instructions .Route Qty: 100 3RF Rx Instructions: Use with Lantus injections once daily. dx: E11.65 levothyroxine 112 mcg tablet 112 mcg PO DAILYBB Qty: 90 3RF aspirin [Adult Low Dose Aspirin] 81 mg tablet,delayed release (DR/EC) 81 mg PO DAILY rosuvastatin 10 mg tablet 10 mg PO DAILY Qty: 90 3RF Hold Instructions: pt stopped Trulicity 1.5 mg/0.5 mL pen injector 1.5 mg subcut WK Qty: 4 5RF Rx Instructions: On Saturdays (DME) lancets [OneTouch UltraSoft Lancets] misc See Dose Instructions .ROUTE .MEDSUPPLY Qty: 100 5RF Dose Instruction: As directed Rx Instructions: Test twice daily Discharge Orders: Discharge Order (Routine); Ordered 06/20/23 Ordered By: Darrion Dougherty/Other Patient Handouts: High Blood Sugar (Hyperglycemia), Managing Type 2 Diabetes Admission Data Admit Date/Time: 06/18/23 19:26 Attending Provider: Darrion Flores Admit Provider: Ricardo Albright Primary Care Provider: Aurea Das Other Providers: Ricardo Albright Coding Level of Care Code 54402 INP/OBS DISCH >30 MIN Diagnoses Lyme disease A69.20 DM II (diabetes mellitus, type II), controlled E11.9 Diabetes mellitus prison insulin use: without prison use Diabetes mellitus complication status: without complication HLD (hyperlipidemia) E78.5 Hyperlipidemia type: unspecified Hypothyroidism E03.9 Hypothyroidism type: acquired Chronic kidney disease, stage III (moderate) N18.30
[2023-06-20] MEDS ORDERED: INSULIN HUMAN NPH SC SCH (21:00)
[2023-06-21 03:28] LABS: 18KDIGG Band NON-REACTIVE; 23KDIGG Band NON-REACTIVE; 23KDIGM Band REACTIVE; 28KDIGG Band NON-REACTIVE; 30KDIGG Band NON-REACTIVE; 39KDIGG Band NON-REACTIVE; 39KDIGM Band NON-REACTIVE; 41KDIGG Band REACTIVE; 41KDIGM Band REACTIVE; 45KDIGG Band NON-REACTIVE; 58KDIGG Band NON-REACTIVE; 66KDIGG Band NON-REACTIVE; 93KDIGG Band NON-REACTIVE; Lyme Antibodies, WB IgG NEGATIVE (NEGATIVE); Lyme Antibodies, WB IgM POSITIVE (NEGATIVE)
[2023-06-22 05:12] LABS: Babesia microti DNA Not Detected (Not Detected)
== END 2023-06-20 17:19 | disposition home or self-care (01) | DRG 869 ==
LOC: ED 15:01 → SUATTDRO 19:26 → INTOOBSV 19:26 → 3N 19:26

== ENCOUNTER 2024-06-11 10:04 | Inpatient (IN) ==
--- NOTE | 2024-06-11 10:31 | Emergency Department Note ---
Impression & Plan Weakness, Fall, Rhabdomyolysis, Elevated troponin, Elevated procalcitonin, Dehydration, Hyperglycemia, Contusion of left shoulder ED Provider Note ED Provider Note NAME: JAYMIE BRADFORD AGE:83 SEX: Male : 1940 ARRIVES VIA: EMS INFORMANT: Patient, EMS ED PROVIDER(s): Michelle Short DO CHIEF COMPLAINT: Weakness, fall HPI: This is an 83-year-old male presents emergency department via EMS after a fall earlier today. Patient states he is felt weak over the last 2 to 3 days. He states he did have a fall on Monday but was able to get back up on his own. He states today he fell and could not get back up. He states he had a mild cough over the weekend although that is not unusual for him in the morning. He states no recent change in medications, and states his blood sugars have recently been well-controlled. No recent change in urine or stools. He states he is occasionally constipated secondary to medications. He denies headaches, dizziness, chest pain, shortness of breath, nausea or vomiting. EMS noted fever of 100.3 en route and did give the patient Tylenol. He denies any recent illness or known sick contacts. PAST MEDICAL HISTORY:See Below PAST SURGICAL HISTORY:See Below FAMILY HISTORY:See Below SOCIAL HISTORY:See Below HOME MEDICATIONS:See Below ALLERGIES:See Below VITALS:See Below PHYSICAL EXAMINATION: GENERAL: alert, well appearing, well nourished, no distress, non-toxic EYE EXAM: normal conjunctiva, PERRL and EOM's grossly intact OROPHARYNX: no exudate, no erythema, lips, buccal mucosa, and tongue normal and mucous membranes are dry NECK: supple, no nuchal rigidity, no adenopathy, non-tender LUNGS: Clear to auscultation. Normal chest wall mechanics, no w/r/r HEART: no murmurs, S1 normal and S2 normal ABDOMEN: abdomen soft, non-tender, normo-active bowel sounds, no masses, no rebound or guarding. BACK: Back is symmetrical on inspection and there is no deformity, no midline tenderness, no CVA tenderness. SKIN: no rashes, petechiae, orbruising UPPER EXTREMITIES: upper extremities are grossly normal. FROM, nml pulses b/l. Superficial skin tear and contusion noted to area of the left humeral head, no bony tenderness with palpation. No other evidence of trauma or deformity. LOWER EXTREMITIES: No pitting edema. FROM, nml pulses b/l. 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 No evidence of trauma or deformity. NEURO EXAM: Normal sensorium, cranial nerves II-XII grossly intact, normal speech, no facial droop,nogross weakness of arms, no gross weakness of legs. Gross sensation intact. No ataxia. Vital Signs: reviewed and remarkable Differential Diagnosis: CVA, ICH, occult fracture, dehydration, KEE, electrolyte abnormality, rhabdomyolysis, ACS, dysrhythmia, viral syndrome, UTI, pneumonia, as well as others were considered MEDICAL DECISION MAKING: This is an 83-year-old male presents emergency department due to concern for increased weakness and fall this morning. Patient found on the floor by his son. He was afebrile and vital signs stable on arrival. Patient given Tylenol by EMS prior to arrival. Labs drawn and sent, IV established, EKG and xrays performed bedside interpreted by me and patient monitored on telemetry. Patient started on IV fluids as he did appear clinically dehydrated. Due to concern for occult infection as he was afebrile as noted by EMS, lactic acid and procalcitonin added. Patient does not meet criteria to utilize a blood culture as there is a national shortage. UA noted to have hematuria although patient noted to have an elevated CPK. I suspect rhabdomyolysis secondary to laying on the floor for several hours before he was found by family. Patient's creatinine elevated although stable compared to prior. Troponin elevated likely secondarily to rhabdo and kidney dysfunction. I do not suspect ACS. No ectopy or dysrhythmia noted on telemetry. Patient noted to have an elevated procalcitonin and was given IV cefepime additionally. Nasal swab for bio fire sent additionally. Case discussed with the hospitalist team for additional evaluation and management. CT of the abdomen pelvis added to rule out additional infectious etiology as well as evaluate for trauma given fall. Hyperglycemia also noted, no evidence for DKA. Consultation(s): 1235: Discussed with Dr. Hernández, [place] hospitalist team, for additional evaluation and mgmt. ER Treatment Provided: See below Diagnostics Interpreted By Me: -ECG: nsr at 91, nml axis, nml intervals, no acute ST/T wave changes -Cardiac Monitoring: An order was placed for continuous cardiac monitoring. The monitor shows a rate of 80 with normal sinus rhythm. -Laboratory studies: As stated above and show below. -Imaging studies: X-ray Chest: A single view study of the chest was reviewed and was negative for cardiomegaly, focal infiltrate, effusion, pulmonary edema, or wide mediastinum. Triage Nursing Note Reviewed Prior/Outside Records Reviewed Past Med/Surg History Problem List (Updated 06/11/24 @ 18:36 by Michelle Short DO) Contusion of left shoulder (Acute) Hyperglycemia (Acute) Dehydration (Acute) Elevated procalcitonin (Acute) Elevated troponin (Acute) Rhabdomyolysis (Acute) Rhabdomyolysis Fall (Acute) Weakness (Acute) Hypothyroidism Uncontrolled type 2 diabetes mellitus with hyperglycemia Chronic kidney disease, stage III (moderate) Acute dehydration (Acute) Leukocytosis (Acute) Nocturia Dizziness DM (diabetes mellitus), type 2, uncontrolled, periph vascular complic Peripheral arterial occlusive disease Kidney stone (Acute) Elevated BP without diagnosis of hypertension Hypomagnesemia Uncontrolled type 2 diabetes mellitus with chronic kidney disease (Chronic) Uncontrolled type 2 diabetes mellitus with insulin therapy (Chronic) Tendinitis of flexor tendon of left hand (Acute) Right shoulder pain Right rotator cuff tear Abnormal serum protein test Anemia Osteopenia Medical History (Updated 06/11/24 @ 18:36 by Michelle Short DO) Hyperosmolar hyperglycemic state (HHS) Hyperosmolar hyperglycemic state (HHS) History of COVID-19 08/2020 - no hospitalization. no current symptoms History of nephrolithiasis HLD (hyperlipidemia) History of prostate cancer 15 years ago; surgery + radiation DM II (diabetes mellitus, type II), controlled IDDM KEE (acute kidney injury) Surgical History History of cataract surgery RT History of prostate biopsy History of prostate surgery History of colonoscopy S/P trigger finger release History of lithotripsy History of nephrolithotomy with removal of calculi Family History Other CHF (congestive heart failure) Cardiac pacemaker in situ DM II (diabetes mellitus, type II), controlled Nephrolithiasis No family history of adverse response to anesthesia No pertinent family history Prostate cancer Denies family history of Breast cancer Colorectal cancer Social History Smoking Status: Never smoker Second Hand Exposure: Yes; Do You Dip or Chew Tobacco: No; Hx Alcohol Use: No Hx Substance Use: No Preferred Language: Icelandic Communication Ability: Effective Visual Impairment: Limited Hearing Ability: Normal Emergency Service Restorer Required: No Beliefs That Will Affect Care: None marital status: / Current Living Situation: Alone current occupational status: retired Feels Safe at Home: Yes Diet: other Assistive Devices: Glasses Allergies Allergies Allergy/AdvReac Type Severity Reaction Status Date / Time No Known Allergies Allergy Unknown Verified 04/08/24 07:32 Home Meds Home Medications Medication Instructions Recorded Confirmed aspirin 81 mg tablet,delayed 81 mg PO DAILY 02/07/23 06/11/24 release (Adult Low Dose Aspirin) tirzepatide 5 mg/0.5 mL 5 mg subcut WK 06/11/24 06/11/24 subcutaneous pen injector (Maurilio) Previous Rx's Medication Instructions Recorded lancets (OneTouch UltraSoft #100 ea 08/19/19 Lancets) blood-glucose meter (OneTouch #1 ea 07/29/22 Ultra2 Meter) rosuvastatin 10 mg tablet 10 mg PO DAILY #90 tabs 08/07/23 pen needle, diabetic 32 gauge x #200 ea 10/09/23" levothyroxine 112 mcg tablet 112 mcg PO DAILYBB #90 tabs 01/22/24 blood sugar diagnostic #300 ea 02/26/24 insulin NPH isoph U-100 human 100 30 unit (0.3 mL) subcut BID #15 mL 05/31/24 unit/mL (3 mL) subcutaneous pen (Novolin N FlexPen) Results & Data (ED) Vital Signs Vital Signs - 24 hr 06/11/24 10:08 06/11/24 10:11 06/11/24 10:11 Temperature 37.8 C H Temperature Source Oral Pulse Rate 87 Pulse Rate [Apical] Pulse Rate from SpO2 Sensor Respiratory Rate 17 Blood Pressure 137/80 137/80 137/80 Blood Pressure [Right Arm] Blood Pressure Mean 99 101 101 Blood Pressure Mean [Right Arm] Blood Pressure Position Semi-fowlers Blood Pressure Position [Right Arm] Pulse Oximetry 92 Oxygen Delivery Method Room Air Oxygen Flow Rate Sepsis Recent Fever Within 48 Hours No Sepsis New/Unexplained Change in Mental Status No Sepsis Action Taken by Nursing No Action Required Oxygen Flow Rate - Titration Pulse Oximetry Post Tiitration 06/11/24 10:15 06/11/24 10:16 06/11/24 10:23 Temperature 37.8 C H Temperature Source Oral Pulse Rate 88 92 H Pulse Rate [Apical] 88 Pulse Rate from SpO2 Sensor 89 Respiratory Rate 21 22 Blood Pressure Blood Pressure [Right Arm] 137/80 Blood Pressure Mean Blood Pressure Mean [Right Arm] 99 Blood Pressure Position Blood Pressure Position [Right Arm] Semi-fowlers Pulse Oximetry 98 96 Oxygen Delivery Method Room Air Oxygen Flow Rate Sepsis Recent Fever Within 48 Hours Sepsis New/Unexplained Change in Mental Status Sepsis Action Taken by Nursing Oxygen Flow Rate - Titration Pulse Oximetry Post Tiitration 06/11/24 10:24 06/11/24 10:27 06/11/24 10:32 Temperature Temperature Source Pulse Rate 87 Pulse Rate [Apical] Pulse Rate from SpO2 Sensor 87 Respiratory Rate 23 Blood Pressure 155/83 H Blood Pressure [Right Arm] Blood Pressure Mean 119 Blood Pressure Mean [Right Arm] Blood Pressure Position Blood Pressure Position [Right Arm] Pulse Oximetry 97 97 Oxygen Delivery Method Room Air Oxygen Flow Rate 0 Sepsis Recent Fever Within 48 Hours Sepsis New/Unexplained Change in Mental Status Sepsis Action Taken by Nursing Oxygen Flow Rate - Titration 0 Pulse Oximetry Post Tiitration 97 06/11/24 10:45 06/11/24 10:51 06/11/24 11:00 Temperature Temperature Source Pulse Rate 85 98 H Pulse Rate [Apical] Pulse Rate from SpO2 Sensor 89 82 Respiratory Rate 27 H 24 25 H Blood Pressure Blood Pressure [Right Arm] Blood Pressure Mean Blood Pressure Mean [Right Arm] Blood Pressure Position Blood Pressure Position [Right Arm] Pulse Oximetry 95 93 Oxygen Delivery Method Oxygen Flow Rate Sepsis Recent Fever Within 48 Hours Sepsis New/Unexplained Change in Mental Status Sepsis Action Taken by Nursing Oxygen Flow Rate - Titration Pulse Oximetry Post Tiitration 06/11/24 11:00 06/11/24 11:00 06/11/24 11:12 Temperature Temperature Source Pulse Rate 88 Pulse Rate [Apical] Pulse Rate from SpO2 Sensor Respiratory Rate 26 H Blood Pressure 136/73 136/73 Blood Pressure [Right Arm] Blood Pressure Mean 89 89 Blood Pressure Mean [Right Arm] Blood Pressure Position Blood Pressure Position [Right Arm] Pulse Oximetry Oxygen Delivery Method Oxygen Flow Rate Sepsis Recent Fever Within 48 Hours Sepsis New/Unexplained Change in Mental Status Sepsis Action Taken by Nursing Oxygen Flow Rate - Titration Pulse Oximetry Post Tiitration 06/11/24 11:27 06/11/24 11:36 06/11/24 11:48 Temperature Temperature Source Pulse Rate 82 76 Pulse Rate [Apical] Pulse Rate from SpO2 Sensor 81 81 79 Respiratory Rate 24 19 22 Blood Pressure Blood Pressure [Right Arm] Blood Pressure Mean Blood Pressure Mean [Right Arm] Blood Pressure Position Blood Pressure Position [Right Arm] Pulse Oximetry 88 L 92 96 Oxygen Delivery Method Oxygen Flow Rate Sepsis Recent Fever Within 48 Hours Sepsis New/Unexplained Change in Mental Status Sepsis Action Taken by Nursing Oxygen Flow Rate - Titration Pulse Oximetry Post Tiitration 06/11/24 11:51 06/11/24 12:00 06/11/24 12:00 Temperature Temperature Source Pulse Rate 81 Pulse Rate [Apical] Pulse Rate from SpO2 Sensor 82 Respiratory Rate 24 Blood Pressure 146/68 H 146/68 H Blood Pressure [Right Arm] Blood Pressure Mean 93 93 Blood Pressure Mean [Right Arm] Blood Pressure Position Blood Pressure Position [Right Arm] Pulse Oximetry 93 Oxygen Delivery Method Oxygen Flow Rate Sepsis Recent Fever Within 48 Hours Sepsis New/Unexplained Change in Mental Status Sepsis Action Taken by Nursing Oxygen Flow Rate - Titration Pulse Oximetry Post Tiitration 06/11/24 12:03 06/11/24 12:15 06/11/24 12:34 Temperature 37.0 C Temperature Source Oral Pulse Rate 77 78 Pulse Rate [Apical] Pulse Rate from SpO2 Sensor 78 78 Respiratory Rate 22 28 H Blood Pressure Blood Pressure [Right Arm] Blood Pressure Mean Blood Pressure Mean [Right Arm] Blood Pressure Position Blood Pressure Position [Right Arm] Pulse Oximetry 97 97 Oxygen Delivery Method Oxygen Flow Rate Sepsis Recent Fever Within 48 Hours Sepsis New/Unexplained Change in Mental Status Sepsis Action Taken by Nursing Oxygen Flow Rate - Titration Pulse Oximetry Post Tiitration 06/11/24 12:36 06/11/24 12:45 Temperature Temperature Source Pulse Rate 77 87 Pulse Rate [Apical] Pulse Rate from SpO2 Sensor 77 87 Respiratory Rate 24 20 Blood Pressure 137/64 Blood Pressure [Right Arm] Blood Pressure Mean 88 Blood Pressure Mean [Right Arm] Blood Pressure Position Blood Pressure Position [Right Arm] Pulse Oximetry 97 100 Oxygen Delivery Method Oxygen Flow Rate Sepsis Recent Fever Within 48 Hours Sepsis New/Unexplained Change in Mental Status Sepsis Action Taken by Nursing Oxygen Flow Rate - Titration Pulse Oximetry Post Tiitration Laboratory Data 06/11/24 10:20 06/11/24 10:20 Lab Results 06/11/24 06/11/24 06/11/24 Range/Units 10:20 10:30 10:44 WBC 6.25 (4.8-10.8) K/ul RBC 4.16 L (4.70-6.10) M/uL Hgb 12.7 L (14.0-18.0) g/dl Hct 37.2 L (42.0-52.0) % MCV 89.4 (80.0-100.0) fL MCH 30.5 (25.0-34.0) pg MCHC 34.1 (32.0-36.0) g/dL RDW Std Deviation 40.5 (36.4-46.3) fL RDW Coeff of Eric 12.2 (11.5-14.5) % Plt Count 120 L (130-400) K/uL MPV 9.3 L (9.4-12.4) fL Immature Gran % (Auto) 0.5 % Neut % (Auto) 88.7 % Lymph % (Auto) 4.0 % [place] % (Auto) 6.6 % Eos % (Auto) 0.0 % Baso % (Auto) 0.2 % Neut # (Auto) 5.55 (1.40-6.50) K/uL Lymph # (Auto) 0.25 L (1.20-3.40) K/uL [place] # (Auto) 0.41 (0.11-0.59) K/uL Eos # (Auto) 0.00 (0.00-0.50) K/uL Baso # (Auto) 0.01 (0.00-0.20) K/uL Immature Gran # (Auto) 0.03 (0.01-0.20) K/uL PT 10.8 (9.0-12.0) Seconds INR 1.0 (0.9-1.1) D-Dimer 2230 H* (0-500) ug/L FEU Sodium 136 (136-145) mmol/L Potassium 4.2 (3.5-5.1) mmol/L Chloride 107 (98-107) mmol/L Carbon Dioxide 20 L (21-32) mmol/L Anion Gap 9 (3-11) BUN 31 H (6-23) mg/dl Creatinine 1.45 H (0.6-1.4) mg/dl Est Cr Clr Drug Dosing 40.0 ml/min Est GFR ( Amer) 52.0 ml/min Est GFR (Non-Af Amer) 44.8 ml/min BUN/Creatinine Ratio 21.4 H (10-20) Glucose 267 H (70-99(Fasting)) mg/dl Lactate 2.3 H* (0.4-2.0) mmol/L Calcium 8.4 L (8.6-10.3) mg/dl Magnesium 1.6 L (1.7-2.4) mg/dl Total Bilirubin 0.6 (0.2-1.0) mg/dl AST 36 (13-39) U/L ALT 19 (7-52) U/L Alkaline Phosphatase 56 (34-104) U/L Total Creatine Kinase 1600 H (30-223) U/L Troponin I High Sens 26.1 H (0-20) pg/ml Total Protein 6.4 (6.0-8.3) gm/dl Albumin 3.8 (3.4-5.0) gm/dl Globulin 2.6 (2.5-4.0) gm/dl Albumin/Globulin Ratio 1.5 (0.9-2) Lipase 22 (11-82) U/L Procalcitonin 0.88 H (0-0.5) ng/ml TSH 0.272 L (0.300-4.500) uIu/ml Free T4 0.98 (0.61-1.60) ng/dl Urine Color Urine Appearance (Clear) Urine pH (4.5-7.5) Ur Specific [place] (1.000-1.030) Urine Protein (Negative) Urine Glucose (UA) (Negative) Urine Ketones (Negative) Urine Blood (Negative) Urine Nitrite (Negative) Urine Bilirubin (Negative) Urine Urobilinogen (Negative) Ur Leukocyte Esterase (Negative) Urine WBC (Auto) (0-5) /hpf Urine RBC (Auto) (0-2) /hpf U Hyaline Cast (Auto) (0-2) /lpf U Epithel Cells (Auto) (0-2) /hpf Urine Bacteria (Auto) (None Seen) Adenovirus (PCR) Not Detected (NotDetected) Anaplasma Smear See Comment Babesia Smear See Comment B. pertussis DNA (PCR) Not Detected (NotDetected) B.parapertussis DNA PCR Not Detected (NotDetected) Lyme Disease Screen Negative (Negative) C. pneumoniae DNA (PCR) Not Detected (NotDetected) Coronavirus OC43 (PCR) Not Detected (NotDetected) Coronavirus HKU1 (PCR) Not Detected (NotDetected) Coronavirus 229E (PCR) Not Detected (NotDetected) SARS-CoV-2 (PCR) Not Detected (NotDetected) Coronavirus NL63 (PCR) Not Detected (NotDetected) Human Metapneumovir PCR Not Detected (NotDetected) Influenza Type A (PCR) Not Detected (NotDetected) Influenza Type B (PCR) Not Detected (NotDetected) M. pneumoniae (PCR) Not Detected (NotDetected) Parainfluenza 1 (PCR) Not Detected (NotDetected) Parainfluenza 2 (PCR) Not Detected (NotDetected) Parainfluenza 3 (PCR) Not Detected (NotDetected) Parainfluenza 4 (PCR) Not Detected (NotDetected) RSV (PCR) Not Detected (NotDetected) Entero/Rhino (PCR) Not Detected (NotDetected) 06/11/24 06/11/24 06/11/24 Range/Units 11:13 12:30 12:48 WBC (4.8-10.8) K/ul RBC (4.70-6.10) M/uL Hgb (14.0-18.0) g/dl Hct (42.0-52.0) % MCV (80.0-100.0) fL MCH (25.0-34.0) pg MCHC (32.0-36.0) g/dL RDW Std Deviation (36.4-46.3) fL RDW Coeff of Eric (11.5-14.5) % Plt Count (130-400) K/uL MPV (9.4-12.4) fL Immature Gran % (Auto) % Neut % (Auto) % Lymph % (Auto) % [place] % (Auto) % Eos % (Auto) % Baso % (Auto) % Neut # (Auto) (1.40-6.50) K/uL Lymph # (Auto) (1.20-3.40) K/uL [place] # (Auto) (0.11-0.59) K/uL Eos # (Auto) (0.00-0.50) K/uL Baso # (Auto) (0.00-0.20) K/uL Immature Gran # (Auto) (0.01-0.20) K/uL PT (9.0-12.0) Seconds INR (0.9-1.1) D-Dimer (0-500) ug/L FEU Sodium (136-145) mmol/L Potassium (3.5-5.1) mmol/L Chloride (98-107) mmol/L Carbon Dioxide (21-32) mmol/L Anion Gap (3-11) BUN (6-23) mg/dl Creatinine (0.6-1.4) mg/dl Est Cr Clr Drug Dosing ml/min Est GFR ( Amer) ml/min Est GFR (Non-Af Amer) ml/min BUN/Creatinine Ratio (10-20) Glucose (70-99(Fasting)) mg/dl Lactate 2.0 (0.4-2.0) mmol/L Calcium (8.6-10.3) mg/dl Magnesium (1.7-2.4) mg/dl Total Bilirubin (0.2-1.0) mg/dl AST (13-39) U/L ALT (7-52) U/L Alkaline Phosphatase (34-104) U/L Total Creatine Kinase (30-223) U/L Troponin I High Sens 27.1 H (0-20) pg/ml Total Protein (6.0-8.3) gm/dl Albumin (3.4-5.0) gm/dl Globulin (2.5-4.0) gm/dl Albumin/Globulin Ratio (0.9-2) Lipase (11-82) U/L Procalcitonin (0-0.5) ng/ml TSH (0.300-4.500) uIu/ml Free T4 (0.61-1.60) ng/dl Urine Color Yellow Urine Appearance Clear (Clear) Urine pH 5.5 (4.5-7.5) Ur Specific [place] 1.021 (1.000-1.030) Urine Protein 2+ H (Negative) Urine Glucose (UA) 2+ H (Negative) Urine Ketones Negative (Negative) Urine Blood 3+ H (Negative) Urine Nitrite Negative (Negative) Urine Bilirubin Negative (Negative) Urine Urobilinogen Negative (Negative) Ur Leukocyte Esterase Negative (Negative) Urine WBC (Auto) 0-5 (0-5) /hpf Urine RBC (Auto) 0-2 (0-2) /hpf U Hyaline Cast (Auto) 0-2 (0-2) /lpf U Epithel Cells (Auto) 0-2 (0-2) /hpf Urine Bacteria (Auto) None Seen (None Seen) Adenovirus (PCR) (NotDetected) Anaplasma Smear Babesia Smear B. pertussis DNA (PCR) (NotDetected) B.parapertussis DNA PCR (NotDetected) Lyme Disease Screen (Negative) C. pneumoniae DNA (PCR) (NotDetected) Coronavirus OC43 (PCR) (NotDetected) Coronavirus HKU1 (PCR) (NotDetected) Coronavirus 229E (PCR) (NotDetected) SARS-CoV-2 (PCR) (NotDetected) Coronavirus NL63 (PCR) (NotDetected) Human Metapneumovir PCR (NotDetected) Influenza Type A (PCR) (NotDetected) Influenza Type B (PCR) (NotDetected) M. pneumoniae (PCR) (NotDetected) Parainfluenza 1 (PCR) (NotDetected) Parainfluenza 2 (PCR) (NotDetected) Parainfluenza 3 (PCR) (NotDetected) Parainfluenza 4 (PCR) (NotDetected) RSV (PCR) (NotDetected) Entero/Rhino (PCR) (NotDetected) Administered Medications Acetaminophen (Acetaminophen 325 Mg Tab) 650 mg PO Q4H PRN PRN Reason: pain/fever Stop: 07/11/24 13:02 Last Admin: 06/11/24 16:27 Dose: 650 mg Documented By: LUKE Sodium Chloride (Nss) 1,000 mls @ 125 mls/hr IV .Q8H COBY Stop: 07/11/24 10:29 Last Admin: 06/11/24 17:55 Dose: 125 mls/hr Documented By: Infusion: 06/11/24 17:45 Dose: Infused Documented By: Admin: 06/11/24 10:39 Dose: 125 mls/hr Documented By: NIKITA Vancomycin HCl 1,750 mg/ (Sodium Chloride) 535 mls @ 200 mls/hr IV NOW STA Stop: 06/11/24 19:37 Last Admin: 06/11/24 17:26 Dose: 200 mls/hr Documented By: JOCELINE Insulin Aspart (Insulin Aspart Per Unit Charge) 0 units SC ACHS COBY Stop: 07/11/24 16:29 Last Admin: 06/11/24 17:38 Dose: 1 units Documented By: JOCELINE Co-signed By: TRM Discontinued Medications Magnesium Sulfate/Dextrose (Magnesium Sulfate / D5w) 1 gm in 100 mls @ 100 mls/hr IV NOW STA Stop: 06/11/24 12:20 Last Infusion: 06/11/24 13:23 Dose: Infused Documented By: Admin: 06/11/24 11:48 Dose: 100 mls/hr Documented By: MMF Cefepime HCl (Maxipime) 2,000 mg in 20 mls @ 5 mls/min IV NOW STA; Protocol Stop: 06/11/24 11:44 Last Admin: 06/11/24 11:48 Dose: 5 mls/min Documented By: MMF Sodium Chloride (Nss) 1,000 mls @ 999 mls/hr IV .Q1H1M [facility] Stop: 06/11/24 17:45 Last Infusion: 06/11/24 17:55 Dose: Infused Documented By: Admin: 06/11/24 16:53 Dose: 999 mls/hr Documented By: JOCELINE Ioversol (Optiray 320 125ml) 119 ml IV ONCE ONE Stop: 06/11/24 13:04 Last Admin: 06/11/24 13:03 Dose: 119 ml Documented By: ROSANGELA Imaging Data Radiologist's Impression: Chest X-Ray 06/11/24 10:31 XR chest 1V portable HISTORY: 83 years-old Male fall acute chest trauma status post fall COMPARISON: 06/18/2023 TECHNIQUE: AP view of the chest FINDINGS: Cardiac silhouette is enlarged. Mild right hemidiaphragmatic elevation. No pneumothorax, pleural effusion, airspace consolidation or pulmonary edema. Degenerative changes of the shoulders and spine. IMPRESSION: No acute process. ACT 112: Negative or not required by law. The above report was generated using voice recognition software. It may contain grammatical, syntax or spelling errors. Electronically signed by: Sanju Lemus M.D. 06/11/2024 10:58 AM Pelvis X-Ray 06/11/24 10:31 XR pelvis 1-2V routine CLINICAL HISTORY: fall TECHNIQUE: A single frontal view of the pelvis was obtained. Comparison: None available at the time of this dictation. FINDINGS: There is no evidence of an acute fracture. Degenerative changes are seen in the hip joints and lumbar spine. No soft tissue abnormality is seen. IMPRESSION: No evidence of acute osseous injury. ACT 112: Negative or not required by law. Electronically signed by: Armond Amaya M.D. 06/11/2024 11:06 AM Abdomen/Pelvis CT 06/11/24 12:[address] WITHOUT CONTRAST CT DOSE: 986.95 mGy.cm HISTORY: Acute generalized abdominal pain status post fall incr urination, fall TECHNIQUE: Multiaxial CT images of the abdomen and pelvis were performed without contrast. A dose lowering technique was utilized adhering to the principles of ALARA. COMPARISON STUDY: CT chest of same day, CT abdomen and pelvis 06/18/2023 FINDINGS: Moderate coronary artery calcifications. Calcified subcarinal lymph nodes with calcified pulmonary granulomata. Mild subsegmental right basilar atelectasis versus scarring. No free air. Calcified granulomata of the spleen which measures in the upper limits of normal in size. Unremarkable pancreas, gallbladder, adrenal glands and liver. Cortical thinning of the kidneys. Indeterminate exophytic 1.5 cm lesion of the superior pole left kidney with Hounsfield of 30. This is noted within the distribution of a previously noted simple cyst. A few cysts of the kidneys measure up to 5.5 cm on the right. 3 mm nonobstructing calculus in the interpolar right kidney. No ureteral calculi or hydronephrosis. Urinary bladder wall thickening with partial distention. Prostatectomy. Small fat filled hernias. The left inguinal hernia contains nonobstructed loop of large bowel, unchanged from prior. Atherosclerosis of the aorta. No lymphadenopathy. No bowel obstruction or bowel wall thickening. Mild colonic fecal retention. Normal appendix. No acute fracture. Lumbar levoscoliosis. IMPRESSION: 1. No acute posttraumatic intra-abdominal or intrapelvic abnormality identified. 2. Nonobstructing right renal calculus. No ureteral calculi or hydronephrosis. 3. Indeterminate 1.5 cm lesion of the superior pole left kidney is stable from prior. Correlation with a nonemergent follow-up renal ultrasound again recommended. 4. No bowel obstruction or bowel wall thickening. 5. Left inguinal hernia contains a nonobstructed loop of colon. ACT 112: Negative or not required by law. The above report was generated using voice recognition software. It may contain grammatical, syntax or spelling errors. Electronically signed by: Sanju Lemus M.D. 06/11/2024 2:07 PM Chest CTA 06/11/24 12:55 CT angio chest PE protocol CLINICAL HISTORY: PE TECHNIQUE: Multidetector row helical CT of the chest was performed with angiographic protocol. Coronal and sagittal reformations were obtained. Coronal and sagittal MIPS were obtained from the axial data set and were submitted for review. Automated dose lowering techniques and/or adjustment according to patient size were utilized for this exam. CT DOSE: 680.44 mGy.cm Comparison: Comparison is made to CT chest 02/29/2016 FINDINGS: Lungs and pleura: Calcified granulomata are seen. Mild atelectasis is noted. Heart and pericardium: Heart size is normal. No pericardial effusion. Vessels: No evidence of pulmonary embolism. Mediastinum and kristal: Subcentimeter lymph nodes are seen. Chest wall and lower neck: Unremarkable. Abdomen: Unremarkable. Bones: Degenerative changes in the thoracic spine. IMPRESSION: No acute abnormality and in particular no evidence of pulmonary embolus. ACT 112: Negative or not required by law. Electronically signed by: Armond Amaya M.D. 06/11/2024 1:20 PM Discharge Plan Visit Data Chief Complaint: Weakness Stated Complaint: [facility] ED Provider: Michelle Short Discharge Problem: Weakness, Fall, Rhabdomyolysis, Elevated troponin, Elevated procalcitonin, Dehydration, Hyperglycemia, Contusion of left shoulder Patient Disposition: Admitted As Inpatient Discharge Instructions Interventions: ED Discharge Assessment Last Done: 06/11/24 16:58
[2024-06-11] MEDS: SODIUM CHLORIDE 0.9% 1,000 ML IV SCH ×2 (10:39→16:53)
[2024-06-11 10:52] LABS: Basophils # (auto) 0.01 K/uL (0.00-0.20); Basophils % (auto) 0.2 %; Hematocrit (blood only) 37.2 % (42.0-52.0); Hemoglobin 12.7 g/dl (14.0-18.0); Immature Granulocytes # (auto) 0.03 K/uL (0.01-0.20); Immature Granulocytes % (auto) 0.5 %; Lymphocytes # (auto) 0.25 K/uL (1.20-3.40); Mean Corpuscular Hemoglobin 30.5 pg (25.0-34.0); Mean Corpuscular Hgb Conc 34.1 g/dL (32.0-36.0); Mean Corpuscular Volume 89.4 fL (80.0-100.0); Mean Platelet Volume 9.3 fL (9.4-12.4); Monocytes # (auto) 0.41 K/uL (0.11-0.59); Monocytes % (auto) 6.6 %; Neutrophils # (auto) 5.55 K/uL (1.40-6.50); Neutrophils % (auto) 88.7 %; Platelet Count 120 K/uL (130-400); RDW Coefficient of Variation 12.2 % (11.5-14.5); RDW Standard Deviation 40.5 fL (36.4-46.3); Red Blood Count 4.16 M/uL (4.70-6.10); White Blood Count 6.25 K/ul (4.8-10.8)
--- NOTE | 2024-06-11 11:00 | XRay Report ---
XR chest 1V portable HISTORY: 83 years-old Male fall acute chest trauma status post fall COMPARISON: 06/18/2023 TECHNIQUE: AP view of the chest FINDINGS: Cardiac silhouette is enlarged. Mild right hemidiaphragmatic elevation. No pneumothorax, pleural effu dain, airspace consolidation or pulmonary edema. Degenerative changes of the shoulders and spine. IMPRESSION: No acute process. ACT 112: Negative or not required by law. The above report was generated using voice recognition software. It may contain grammatical, syntax o r spelling errors. Electronically signed by: Sanju Lemus M.D. 06/11/2024 10:58 AM
[2024-06-11 11:05] LABS: Albumin Globulin Ratio 1.5 (0.9-2); Albumin Level 3.8 gm/dl (3.4-5.0); BUN Creatinine Ratio 21.4 (10-20); Bilirubin,Total 0.6 mg/dl (0.2-1.0); Calcium 8.4 mg/dl (8.6-10.3); Est GFR (Non-African American) 44.8 ml/min; Globulin 2.6 gm/dl (2.5-4.0); Magnesium 1.6 mg/dl (1.7-2.4); Potassium 4.2 mmol/L (3.5-5.1); Total Protein 6.4 gm/dl (6.0-8.3)
--- NOTE | 2024-06-11 11:08 | XRay Report ---
XR pelvis 1-2V routine CLINICAL HISTORY: fall TECHNIQUE: A single frontal view of the pelvis was obtained. Comparison: None available at the time of this dictation. FINDINGS: There is no evidence of an acute fracture. Degenerative changes are seen in the hip joints and lumbar spine. No soft tissue abnormality is seen. IMPRESSION: No evidence of acute osseous injury. ACT 112: Negative or not required by law. Electronically signed by: Armond Amaya M.D. 06/11/2024 11:06 AM
[2024-06-11 11:10] LABS: Prothrombin Time 10.8 Seconds (9.0-12.0); Troponin I High Sensitivity 26.1 pg/ml (0-20)
[2024-06-11 11:19] LABS: Thyroid Stimulating Hormone 0.272 uIu/ml (0.300-4.500)
[2024-06-11 11:26] LABS: Appearance Urine Clear (Clear); Bacteria Urine Automated None Seen (None Seen); Bilirubin Urine Negative (Negative); Blood Urine 3+ (Negative); Cast Urine Automated 0-2 /lpf (0-2); Color Urine Yellow; Epithelial Cell Urine Auto 0-2 /hpf (0-2); Glucose Urine UA 2+ (Negative); Ketones Urine Negative (Negative); Leukocyte Esterase Urine Negative (Negative); Nitrite Urine Negative (Negative); Protein Urine 2+ (Negative); RBC Urine Automated 0-2 /hpf (0-2); Specific Gravity Urine 1.021 (1.000-1.030); Urobilinogen Urine Negative (Negative); WBC Urine Automated 0-5 /hpf (0-5); pH Urine 5.5 (4.5-7.5)
[2024-06-11 11:36] LABS: Adenovirus PCR Not Detected (NotDetected); Bordetella parapertussis PCR Not Detected (NotDetected); Bordetella pertussis PCR Not Detected (NotDetected); Chlamydia pneumoniae PCR Not Detected (NotDetected); Coronavirus 229E PCR Not Detected (NotDetected); Coronavirus CoV-2 (COVID19)PCR Not Detected (NotDetected); Coronavirus HKU1 PCR Not Detected (NotDetected); Coronavirus NL63 PCR Not Detected (NotDetected); Coronavirus OC43PCR Not Detected (NotDetected); Human Metapneumovirus PCR Not Detected (NotDetected); Influenza A PCR Not Detected (NotDetected); Influenza B PCR Not Detected (NotDetected); Mycoplasma pneumoniae PCR Not Detected (NotDetected); Parainfluenza Virus 1 PCR Not Detected (NotDetected); Parainfluenza Virus 2 PCR Not Detected (NotDetected); Parainfluenza Virus 3 PCR Not Detected (NotDetected); Parainfluenza Virus 4 PCR Not Detected (NotDetected); Respiratory Syncytial VirusPCR Not Detected (NotDetected); Rhinovirus/Enterovirus PCR Not Detected (NotDetected)
[2024-06-11] MEDS: CEFEPIME 2,000 MG/20 ML VIAL IV STA (11:48)
[2024-06-11] MEDS: MAGNESIUM SULFATE / D5W 1 GM/100 ML BAG IV STA (11:48)
[2024-06-11 11:53] LABS: T4 Free Thyroxine 0.98 ng/dl (0.61-1.60)
[2024-06-11 12:57] LABS: D Dimer 2230 ug/L FEU (0-500)
[2024-06-11] MEDS ORDERED: DEXTROSE 50% 50 ML SYRINGE IV PRN (13:03)
[2024-06-11] MEDS: OPTIRAY 320 125ml IV ONE (13:03)
[2024-06-11] MEDS ORDERED: GLUCOSE 40% GEL 15 GM TUBE PO PRN (13:03)
[2024-06-11] MEDS ORDERED: ONDANSETRON INJ 2 MG/ML 2 ML VIAL IV PRN (13:03)
[2024-06-11] MEDS ORDERED: GLUCOSE 10 TAB/TUBE PO PRN (13:03)
[2024-06-11] MEDS ORDERED: GLUCAGON FOR INJ 1 MG VIAL SQ PRN (13:03)
[2024-06-11] MEDS ORDERED: CARBOHYDRATES FOR HYPOGLYCEMIA PO PRN (13:03)
--- NOTE | 2024-06-11 13:15 | History & Physical Report ---
Date of Service June 11, 2024 Assessment & Plan (1) Rhabdomyolysis: Plan: Assessment: 1. Rhabdomyolysis. IV fluids. Trend CK totals. 2. Weakness with multiple falls. Falls precautions. PT consultation. 3. Abnormal troponins probably from rhabdomyolysis. Trend troponins. 4. Tachypnea noted on vital signs. With a positive D-dimer. With weakness and lightheadedness. Rule out pulmonary embolism. CTA of the chest is pending. 5. Fever. Had cefepime in the ER. CT of the abdomen pelvis is pending from the ER. And CTA of the chest is pending. Will make further recommendations pending antibiotic therapy pending testing results. 6. Diabetes mellitus type 2 insulin requiring. Sliding scale will be ordered pending n.p.o. status. 7. Hypothyroidism we will check a level in the morning. 8. Dyslipidemia. On a statin therapy at home. 9. Thrombocytopenia. Unknown etiology. Possibly of sepsis. 10. History of Lyme disease. With the thrombocytopenia. Will check a tickborne illness panel. 11. Lactic acidemia at 2.3. Recheck. Trended. Plan: As discussed above. He said this is cefepime. Will monitor other CAT scans and lab results. Make further recommendations and antibiotic recommendations later today pending testing. Trend CK totals. Trend troponins. IV fluids. N.p.o. for now till CAT scans are resulted. Lyme titer pending./Tickborne panel pending. Please refer to orders for further planning. History of Present Illness Chief Complaint: Weakness, fall x 2 cannot get up. Primary Care Provider: KINA Ortiz Pleasant 83-year-old male who lives at home alone. He had a fall couple days ago with some difficulty getting up and fell again today was down for an extended time period, biggest exactly how long but appears to be at least a few hours. His neighbor/friend convinced him to come to the emergency department for further evaluation and treatment. In the emergency department the patient had multiple laboratory studies pertinent for CK total of 1600 as well as a troponin of 26.1. Platelet count suppressed at oh 120,000. Urinalysis was positive for blood was otherwise negative for infection COVID testing was negative lactic acid was elevated at 2.3. Patient had a plain film chest x-ray which was nonacute and a pelvis x-ray which was nonacute. The patient received some IV fluids and IV cefepime. He was noted to be febrile. He was noted to be tachypneic approximate 20 breaths/min. CT of the abdomen pelvis was ordered in the ER had yet to go to CT Will we are called to ask for admission. We ordered a stat D-dimer is over 1999. Of also added a CTA of the chest stat. Will do serial troponins. Will do a tickborne illness panel. Continue to hydrate. Await CT results to determine further antibiotic treatment. We will trend his troponins. As well as CK totals. Allergies Allergy/AdvReac Type Severity Reaction Status Date / Time No Known Allergies Allergy Unknown Verified 04/08/24 07:32 Home Medications Medication Instructions Recorded Confirmed Type lancets ([email or web address] UltraSoft #100 ea 08/19/19 04/08/24 Rx Lancets) blood-glucose meter (OneTouch #1 ea 07/29/22 04/08/24 Rx Ultra2 Meter) aspirin 81 mg tablet,delayed 81 mg PO DAILY 02/07/23 04/08/24 History release (Adult Low Dose Aspirin) rosuvastatin 10 mg tablet 10 mg PO DAILY #90 tabs 08/07/23 04/08/24 Rx pen needle, diabetic 32 gauge x #200 ea 10/09/23 04/08/24 Rx /32" levothyroxine 112 mcg tablet 112 mcg PO DAILYBB #90 tabs 01/22/24 04/08/24 Rx blood sugar diagnostic #300 ea 02/26/24 04/08/24 Rx insulin NPH isoph U-100 human 100 30 unit (0.3 mL) subcut BID #15 mL 05/31/24 Rx unit/mL (3 mL) subcutaneous pen (Novolin N FlexPen) tirzepatide 5 mg/0.5 mL 5 mg (0.5 mL) subcut .weekly #2 mL 06/10/24 06/10/24 Rx subcutaneous pen injector (Mounjaro) tirzepatide 7.5 mg/0.5 mL 7.5 mg (0.5 mL) subcut Q7D #6 mL 06/10/24 06/10/24 Rx subcutaneous pen injector Past Med/Surg History Problem List (Updated 06/11/24 @ 13:21 by Mono Hernández, PhD, DO) Rhabdomyolysis Fall (Acute) Weakness (Acute) Hypothyroidism Uncontrolled type 2 diabetes mellitus with hyperglycemia Chronic kidney disease, stage III (moderate) Acute dehydration (Acute) Leukocytosis (Acute) Nocturia Dizziness DM (diabetes mellitus), type 2, uncontrolled, periph vascular complic Peripheral arterial occlusive disease Kidney stone (Acute) Elevated BP without diagnosis of hypertension Hypomagnesemia Uncontrolled type 2 diabetes mellitus with chronic kidney disease (Chronic) Uncontrolled type 2 diabetes mellitus with insulin therapy (Chronic) Tendinitis of flexor tendon of left hand (Acute) Right shoulder pain Right rotator cuff tear Abnormal serum protein test Anemia Osteopenia Medical History (Updated 06/11/24 @ 13:21 by Mono Hernnádez, PhD, DO) Hyperosmolar hyperglycemic state (HHS) Hyperosmolar hyperglycemic state (HHS) History of COVID-19 08/2020 - no hospitalization. no current symptoms History of nephrolithiasis HLD (hyperlipidemia) History of prostate cancer 15 years ago; surgery + radiation DM II (diabetes mellitus, type II), controlled IDDM KEE (acute kidney injury) Surgical History History of cataract surgery RT History of prostate biopsy History of prostate surgery History of colonoscopy S/P trigger finger release History of lithotripsy History of nephrolithotomy with removal of calculi Family History Other CHF (congestive heart failure) Cardiac pacemaker in situ DM II (diabetes mellitus, type II), controlled Nephrolithiasis No family history of adverse response to anesthesia No pertinent family history Prostate cancer Denies family history of Breast cancer Colorectal cancer Social History Smoking Status: Never smoker Second Hand Exposure: Yes; Do You Dip or Chew Tobacco: No; Hx Alcohol Use: No Hx Substance Use: No Preferred Language: Citizen Of [place] Communication Ability: Effective Visual Impairment: Limited Hearing Ability: Normal Unit Receptionist Required: No Beliefs That Will Affect Care: None marital status: / Current Living Situation: Alone current occupational status: retired Feels Safe at Home: Yes Diet: other Assistive Devices: Cane, Glasses, Walker and Wheelchair Review of Systems Review of Systems: A 10 point review of system was obtained and unless otherwise stated here or in history of present illness are negative and noncontributory to chief complaint. Physical Exam Physical Exam: In General: In general is a pleasant 83-year-old male is alert and oriented x 3 at the time of my exam. He interacts appropriately and pleasantly. He denies any specific symptoms except being weak and mildly lightheaded on and off for HEENT: Normocephalic atraumatic pupils are equal round and reactive to light bilaterally. No scleral icterus no conjunctival injection external auditory canals are patent septum is in the midline nose is without discharge oral mucosa is pink and dry without lesion. NECK: Supple no rigidity no lymphadenopathy no thyromegaly no carotid bruits no JVD no masses. HEART: Regular rate and rhythm I do not appreciate any ectopy or rub. No murmur. LUNGS: Clear to auscultation bilaterally and anteriorly with no evidence of adventitious sounds/wheezes rales or rhonchi. ABDOMEN: Soft nontender, no rebound, no peritoneal signs, positive bowel sounds, no appreciable organomegaly. EXTREMITIES: Intact, no peripheral cyanosis, clubbing or edema. Strength is 5 out of 5 in extremities x4, no pathological reflexes. NEUROLOGICAL: Cranial nerves II through XII are grossly intact with no focal deficit elicited upon examination. No tremor. Results & Data Results & Data Vital Signs (Past 12 Hours) Vital Signs Temp Pulse Pulse Resp BP BP Pulse Ox 06/11/24 12:36 77 24 137/64 97 06/11/24 12:15 78 28 H 97 06/11/24 12:03 77 22 97 06/11/24 12:00 146/68 H 06/11/24 12:00 146/68 H 06/11/24 11:51 81 24 93 06/11/24 11:48 22 96 06/11/24 11:36 76 19 92 06/11/24 11:27 82 24 88 L 06/11/24 11:12 88 26 H 06/11/24 11:00 136/73 06/11/24 11:00 136/73 06/11/24 11:00 25 H 93 06/11/24 10:51 98 H 24 95 06/11/24 10:45 85 27 H 06/11/24 10:32 155/83 H 06/11/24 10:27 87 23 97 06/11/24 10:24 97 06/11/24 10:23 37.8 C H 88 22 137/80 96 06/11/24 10:16 92 H 06/11/24 10:15 88 21 98 06/11/24 10:11 137/80 06/11/24 10:11 137/80 06/11/24 10:08 37.8 C H 87 17 137/80 92 O2 Del Method O2 Flow Rate 06/11/24 12:36 06/11/24 12:15 06/11/24 12:03 06/11/24 12:00 06/11/24 12:00 06/11/24 11:51 06/11/24 11:48 06/11/24 11:36 06/11/24 11:27 06/11/24 11:12 06/11/24 11:00 06/11/24 11:00 06/11/24 11:00 06/11/24 10:51 06/11/24 10:45 06/11/24 10:32 06/11/24 10:27 06/11/24 10:24 Room Air 0 06/11/24 10:23 Room Air 06/11/24 10:16 06/11/24 10:15 06/11/24 10:11 06/11/24 10:11 06/11/24 10:08 Room Air Code Status & VTE Plan Code Status DO NOT RESUSCITATE/DO NOT INTUBATE-I personally spoke with patient this has been his wishes in the past and continues to be so. VTE Prophylaxis Plan VTE Prophylaxis will be ordered: Yes PG Care Time/CCT Total # of Minutes Spent Total Time Spent with Patient: Total time spent is greater than 50% in coordination of care (as documented) at patient's floor/unit and/or counseling patient: Coding Level of Care Code 78539 INT INP/OBS CARE 3/75MIN Diagnoses Rhabdomyolysis M62.82
--- NOTE | 2024-06-11 13:22 | CT Scan Report ---
CT angio chest PE protocol CLINICAL HISTORY: PE TECHNIQUE: Multidetector row helical CT of the chest was performed with angiographic protocol. Robb l and sagittal reformations were obtained. Coronal and sagittal MIPS were obtained from the axial ck a set and were submitted for review. Automated dose lowering techniques and/or adjustment according to patient size were utilized for this exam. CT DOSE: 680.44 mGy.cm Comparison: Comparison is made to CT chest 02/29/2016 FINDINGS: Lungs and pleura: Calcified granulomata are seen. Mild atelectasis is noted. Heart and pericardium: Heart size is normal. No pericardial effusion. Vessels: No evidence of pulmonary embolism. Mediastinum and kristal: Subcentimeter lymph nodes are seen. Chest wall and lower neck: Unremarkable. Abdomen: Unremarkable. Bones: Degenerative changes in the thoracic spine. IMPRESSION: No acute abnormality and in particular no evidence of pulmonary embolus. ACT 112: Negative or not required by law. Electronically signed by: Armond Amaya M.D. 06/11/2024 1:20 PM
--- NOTE | 2024-06-11 14:09 | CT Scan Report ---
ABDOMEN AND PELVIS CT WITHOUT CONTRAST CT DOSE: 986.95 mGy.cm HISTORY: Acute generalized abdominal pain status post fall incr urination, fall TECHNIQUE: Multiaxial CT images of the abdomen and pelvis were performed without contrast. A dose lo wering technique was utilized adhering to the principles of ALARA. COMPARISON STUDY: CT chest of same day, CT abdomen and pelvis 06/18/2023 FINDINGS: Moderate coronary artery calcifications. Calcified subcarinal lymph nodes with calcified pu lmonary granulomata. Mild subsegmental right basilar atelectasis versus scarring. No free air. Calcif ied granulomata of the spleen which measures in the upper limits of normal in size. Unremarkable panc reas, gallbladder, adrenal glands and liver. Cortical thinning of the kidneys. Indeterminate exophytic 1.5 cm lesion of the superior pole left kid abdirizak with Hounsfield of 30. This is noted within the distribution of a previously noted simple cyst. A few cysts of the kidneys measure up to 5.5 cm on the right. 3 mm nonobstructing calculus in the inte rpolar right kidney. No ureteral calculi or hydronephrosis. Urinary bladder wall thickening with part ial distention. Prostatectomy. Small fat filled hernias. The left inguinal hernia contains nonobstruc hyun loop of large bowel, unchanged from prior. Atherosclerosis of the aorta. No lymphadenopathy. No bowel obstruction or bowel wall thickening. Mild colonic fecal retention. Normal appendix. No acut e fracture. Lumbar levoscoliosis. IMPRESSION: 1. No acute posttraumatic intra-abdominal or intrapelvic abnormality identified. 2. Nonobstructing right renal calculus. No ureteral calculi or hydronephrosis. 3. Indeterminate 1.5 cm lesion of the superior pole left kidney is stable from prior. Correlation wit h a nonemergent follow-up renal ultrasound again recommended. 4. No bowel obstruction or bowel wall thickening. 5. Left inguinal hernia contains a nonobstructed loop of colon. ACT 112: Negative or not required by law. The above report was generated using voice recognition software. It may contain grammatical, syntax o r spelling errors. Electronically signed by: Sanju Lemus M.D. 06/11/2024 2:07 PM
--- NOTE | 2024-06-11 15:27 | Electrocardiogram Report ---
Test Reason : Blood Pressure : */* mmHG Vent. Rate : 91 BPM Atrial Rate : 91 BPM P-R Int : 146 ms QRS Dur : 76 ms QT Int : 374 ms P-R-T Axes : 23 4 6 degrees QTcB Int : 460 ms Normal sinus rhythm Nonspecific ST abnormality Abnormal ECG When compared with ECG of 18-Jun-2023 16:12, Inverted T waves have replaced nonspecific T wave abnormality in Inferior leads Confirmed by Dave Meng ([id number]) on 06/11/2024 3:26:59 PM Referred By: REFERRED SELF Confirmed By: Dave Meng
[2024-06-11] MEDS: ACETAMINOPHEN 325 MG TAB PO PRN (16:27)
[2024-06-11] MEDS ORDERED: VANCOMYCIN CONSULT ACTIVE PRN (16:39)
[2024-06-11] MEDS: VANCOMYCIN HCL 1,750 MG in SODIUM CHLORIDE 0.9% 500 ML IV STA (17:26)
[2024-06-11] MEDS: INSULIN ASPART PER UNIT CHARGE SC SCH (17:38)
[2024-06-11] MEDS: LANTUS PER UNIT CHARGE SQ SCH (20:35)
[2024-06-11] MEDS ORDERED: VANCOMYCIN HCL 1,000 MG in SODIUM CHLORIDE 0.9% 500 ML IV SCH (21:00)
[2024-06-11] MEDS: CEFEPIME 1,000 MG in SYRINGE 0 ML IV SCH (23:14)
[2024-06-12 06:27] LABS: BUN Creatinine Ratio 17.7 (10-20); Calcium 7.9 mg/dl (8.6-10.3); Creatinine Clr Calc Pharmacy 44.6 ml/min; Est GFR (African American) 59.3 ml/min; Est GFR (Non-African American) 51.2 ml/min; Potassium 3.6 mmol/L (3.5-5.1)
[2024-06-12 06:38] LABS: Basophils # (auto) 0.01 K/uL (0.00-0.20); Basophils % (auto) 0.2 %; Hematocrit (blood only) 34.5 % (42.0-52.0); Hemoglobin 11.9 g/dl (14.0-18.0); Immature Granulocytes # (auto) 0.02 K/uL (0.01-0.20); Immature Granulocytes % (auto) 0.4 %; Lymphocytes # (auto) 0.26 K/uL (1.20-3.40); Lymphocytes % (auto) 5.8 %; Mean Corpuscular Hemoglobin 30.7 pg (25.0-34.0); Mean Corpuscular Hgb Conc 34.5 g/dL (32.0-36.0); Mean Corpuscular Volume 88.9 fL (80.0-100.0); Mean Platelet Volume 9.6 fL (9.4-12.4); Monocytes # (auto) 0.23 K/uL (0.11-0.59); Monocytes % (auto) 5.1 %; Neutrophils # (auto) 3.97 K/uL (1.40-6.50); Neutrophils % (auto) 88.5 %; Platelet Count 93 K/uL (130-400); RDW Coefficient of Variation 12.2 % (11.5-14.5); Red Blood Count 3.88 M/uL (4.70-6.10); White Blood Count 4.49 K/ul (4.8-10.8)
[2024-06-12 06:54] LABS: Albumin Globulin Ratio 1.5 (0.9-2); Albumin Level 3.5 gm/dl (3.4-5.0); Bilirubin,Total 0.6 mg/dl (0.2-1.0); Chol HDL Ratio 2.2 (0-5); Globulin 2.4 gm/dl (2.5-4.0); Magnesium 1.8 mg/dl (1.7-2.4); Total Protein 5.9 gm/dl (6.0-8.3)
[2024-06-12 07:14] LABS: Estimated Average Glucose 203 mg/dl; Hemoglobin A1C 8.7 % (4.5-5.6)
[2024-06-12] MEDS: DOXYCYCLINE HYCLATE 100 MG in DEXTROSE 5% MINI-B 100 ML IV SCH (10:12)
--- NOTE | 2024-06-12 12:43 | Hospitalist Progress Note ---
Date of Service June 12, 2024 Assessment & Plan (1) Fever: Plan: Presents with subjective fevers and lightheadedness x 1 week at home which led to a fall and rhabdomyolysis His rhabdomyolysis is fairly mild and the fever is not likely from that which can occur in more severe rhabdomyolysis He now has a leukopenia, thrombocytopenia, ongoing fevers, mildly elevated AST which is likely from rhabdomyolysis, and no clear source of infection Unfortunately, blood cultures were not drawn prior to giving antibiotics due to the nationwide shortage of blood culture bottles, however he does not have any indwelling prosthetics or heart valves and would be lower risk for infective endocarditis. CT of chest abdomen pelvis without clear source of infection, no other symptoms other than fever and weakness. Urinalysis with 3+ blood but no RBCs likely from rhabdomyolysis Viral respiratory [employer] panel is all negative, anaplasmosis and babesiosis smears are negative but PCR is pending Lyme titer screen is negative No evidence of cellulitis or infected wounds Suspect tickborne illness specifically anaplasmosis or less likely ehrlichiosis as is not as prevalent in this area. Do not suspect babesiosis as there is no evidence of hemolysis Discontinue cefepime and vancomycin Start doxycycline 100 Mg IV twice daily Follow Anaplasma and Babesia PCR's, follow for clinical improvement Follow CBC, CMP Okay to advance diet (2) Rhabdomyolysis: Plan: Patient was down on the ground for approximately 12 hours prior to admission secondary to significant weakness from febrile illness. Initial CK was 1600 and now is further elevated at 2327. AST mildly elevated at 56 Urinalysis with 3+ blood no RBCs indicative of likely myoglobinuria Renal function fortunately has improved below his baseline with a creatinine of 1.3 Abnormal troponins probably from demand ischemia in the setting of strain from febrile illness and rhabdomyolysis-trended troponins and only minimally elevated at 36 Continue normal saline at 125 mL/h and watch for volume overload Trend CK, BMP, and LFTs in the morning (3) Thrombocytopenia: Plan: Platelets down to 93, possibly due to tickborne infection or sepsis but no clear source identified yet Treating with doxycycline as above Okay to resume home aspirin given history of PAD Monitor CBC (4) Fall: Plan: Weakness with multiple falls secondary to acute illness PT/OT consults placed and may need rehab (5) Hypothyroidism: Plan: TSH here is acceptable Resume home levothyroxine (6) Chronic kidney disease, stage III (moderate): Plan: Creatinine actually improved from baseline now at 1.30 Avoid nephrotoxins, renally dose medications (7) Uncontrolled type 2 diabetes mellitus with insulin therapy: Plan: Hemoglobin A1c uncontrolled at 8.7% Giving basal and bolus insulin and will adjust as needed Patient is on much higher doses at home of NPH so we will likely have to increase this as he begins to eat more Holding home Marinaro (8) Renal mass: Plan: Incidental finding of a left kidney lesion that is indeterminate and measures 1.5 cm Follow-up as an outpatient with renal ultrasound and urology Plan Hyperlipidemia-holding home statin with rhabdomyolysis PAD-resume aspirin, holding statin. Has a history of occluded left tibial artery DVT prophylaxis-add Lovenox Disposition-continued stay on medical unit with telemetry Admission and Anticipated Discharge Date Admission Date: June 11, 2024 Subjective Patient reports feeling very hungry and would like to eat food. He denies pain anywhere. He reports he was feeling feverish and lightheaded for the last week and then had 2 falls at home. After the second 1, he could not get himself off the ground and crawled around a bit. He was on the floor for 12 hours. He denies headache or pain anywhere, no nausea or vomiting or diarrhea. No respiratory symptoms such as cough or shortness of breath. No chest pains. No joint pains or rashes. He does have a history of acute Lyme disease 1 year ago after a tick bite. He has been having fevers since arrival. Telemetry with normal sinus rhythm with rates in the 80s to 90s Physical Exam Constitutional: WD/WN, vitals as above Eyes: PERRL, conjunctivae normal, anicteric sclerae ENMT: external ear and nose normal, oropharynx normal Neck: trachea midline, no thyromegaly Respiratory: normal respiratory effort, lungs clear to auscultation Cardiovascular: RRR, no murmur, no edema Chest (Breasts): Chest: normal inspection of chest Gastrointestinal (Abdomen): normal bowel sounds, soft, nontender, no hepatosplenomegaly Musculoskeletal: Extremities: extremities normal to inspection; no cyanosis and no clubbing Skin: Trauma: + evidence of skin trauma (Multiple abrasions on knees, ankles, left shoulder) and + contusion (Left forehead) Neurologic: moves all extremities and awake; no focal motor deficits Psychiatric: A+Ox3, euthymic affect Results & Data Results & Data Vital Signs (Past 12 Hours) Vital Signs Temp Pulse Pulse Resp BP Pulse Ox O2 Del Method 06/12/24 11:13 38.4 C H 89 20 167/71 H 94 Room Air 06/12/24 07:51 85 06/12/24 07:44 37.6 C H 86 16 165/68 H 95 Room Air 06/12/24 05:23 37.5 C 06/12/24 02:44 38.4 C H 91 H 18 163/69 H 95 Room Air Laboratory Results CBC, BMP, troponin, hemoglobin A1c, lactate, D-dimer, LFTs, TSH, CK, urinalysis reviewed Diagnostic Findings CT angiogram chest, CT abdomen/pelvis reviewed PG Care Time/CCT Total # of Minutes Spent Total Time Spent with Patient: Total time spent is greater than 50% in coordination of care (as documented) at patient's floor/unit and/or counseling patient: Coding Level of Care Code 15305 SUB INP/OBS CARE 3/50MIN Diagnoses Fever R50.9 Rhabdomyolysis M62.82 Thrombocytopenia D69.6 Fall W19.XXXA Acquired hypothyroidism E03.9 Hypothyroidism type: acquired Chronic kidney disease, stage III (moderate) N18.30 Uncontrolled type 2 diabetes mellitus with insulin therapy E11.65; Z79.4 Renal mass N28.89 (5) Hypothyroidism Hypothyroidism type: acquired Qualified Code(s): E03.9 - Hypothyroidism, unspecified
[2024-06-12] MEDS: ASPIRIN 81 MG ECTAB PO SCH (13:27)
[2024-06-12] MEDS ORDERED: VANCOMYCIN HCL 1,000 MG in SODIUM CHLORIDE 0.9% 250 ML IV SCH (14:00)
[2024-06-12] MEDS: ENOXAPARIN INJ 30 MG/0.3 ML SYR SQ SCH (20:22)
[2024-06-12] MEDS: LANTUS PER UNIT CHARGE SQ SCH (20:33)
[2024-06-13] MEDS: LEVOTHYROXINE SODIUM 112 MCG TABLET PO SCH (05:49)
[2024-06-13 06:30] LABS: Basophils # (auto) 0.02 K/uL (0.00-0.20); Basophils % (auto) 0.6 %; Hematocrit (blood only) 32.8 % (42.0-52.0); Hemoglobin 11.2 g/dl (14.0-18.0); Immature Granulocytes # (auto) 0.01 K/uL (0.01-0.20); Immature Granulocytes % (auto) 0.3 %; Lymphocytes # (auto) 0.41 K/uL (1.20-3.40); Lymphocytes % (auto) 12.6 %; Mean Corpuscular Hemoglobin 30.3 pg (25.0-34.0); Mean Corpuscular Hgb Conc 34.1 g/dL (32.0-36.0); Mean Corpuscular Volume 88.6 fL (80.0-100.0); Mean Platelet Volume 10.1 fL (9.4-12.4); Monocytes # (auto) 0.37 K/uL (0.11-0.59); Monocytes % (auto) 11.3 %; Neutrophils # (auto) 2.45 K/uL (1.40-6.50); Neutrophils % (auto) 75.2 %; Platelet Count 72 K/uL (130-400); RDW Standard Deviation 38.8 fL (36.4-46.3); White Blood Count 3.26 K/ul (4.8-10.8)
[2024-06-13 06:44] LABS: Albumin Level 3.2 gm/dl (3.4-5.0); BUN Creatinine Ratio 19.2 (10-20); Bilirubin Direct 0.1 mg/dl (0-0.2); Bilirubin,Total 0.6 mg/dl (0.2-1.0); Calcium 7.8 mg/dl (8.6-10.3); Creatinine Clr Calc Pharmacy 46.3 ml/min; Est GFR (African American) 62.2 ml/min; Est GFR (Non-African American) 53.7 ml/min; Magnesium 1.7 mg/dl (1.7-2.4); Potassium 3.7 mmol/L (3.5-5.1); Total Protein 5.4 gm/dl (6.0-8.3)
--- NOTE | 2024-06-13 16:46 | Hospitalist Progress Note ---
Date of Service June 13, 2024 Assessment & Plan (1) Fever: Plan: Presents with subjective fevers and lightheadedness x 1 week at home which led to a fall and rhabdomyolysis His rhabdomyolysis is fairly mild and the fever is not likely from that (fever can occur in more severe rhabdomyolysis) He now has a leukopenia, thrombocytopenia, ongoing fevers, mildly elevated AST which is likely from rhabdomyolysis, and no clear source of infection Unfortunately, blood cultures were not drawn prior to giving antibiotics due to the nationwide shortage of blood culture bottles, however he does not have any indwelling prosthetics or heart valves and would be lower risk for infective endocarditis. CT of chest abdomen pelvis without clear source of infection, no other symptoms other than fever and weakness. Urinalysis with 3+ blood but no RBCs likely from rhabdomyolysis Viral respiratory BioFire panel is all negative Anaplasmosis and babesiosis smears are negative but PCR is pending Lyme titer screen is negative No evidence of cellulitis or infected wounds Suspect tickborne illness, specifically anaplasmosis, or less likely ehrlichiosis as is not as prevalent in this area. Do not suspect babesiosis as there is no evidence of hemolysis Much improved today, fevers are resolving, strength improving, platelets down further today to the 70s Cont doxycycline 100 Mg IV twice daily and then convert to po to complete 10 day course after discharge Follow Anaplasma and Babesia PCR's, and continue to follow for clinical improvement Follow CBC, CMP in AM APAP prn fever (2) Rhabdomyolysis: Plan: Patient was down on the ground for approximately 12 hours prior to admission secondary to significant weakness from febrile illness. Initial CK was 1600 and then peaked at 2327, now trending downward. 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 Continue treating with doxycycline as above Okay to continue home aspirin given history of PAD, ok to continue Lovenox-would hold if platelets< 50k Monitor CBC (4) Uncontrolled type 2 diabetes mellitus with insulin therapy: Plan: Hemoglobin A1c uncontrolled at 8.7% Giving basal and bolus insulin and will adjust as needed-still with hyperglycemia--> will increase insulin Holding home Maurilio (5) Fall: Plan: Weakness with multiple falls secondary to acute illness PT/OT consults placed -recommending rehab but definitely is improving since admission and he prefers to not go unless he really has to Will continue to have him ambulate daily and be reevaluated by PT in 1-2 days to see if still needs rehab or could go home with home health (6) Hypothyroidism: Plan: TSH here is acceptable Continue home levothyroxine (7) Chronic kidney disease, stage III (moderate): Plan: Creatinine actually improved from baseline now at 1.25 Avoid nephrotoxins, renally dose medications (8) Renal mass: Plan: Incidental finding of a left kidney lesion that is indeterminate and measures 1.5 cm Follow-up as an outpatient with renal ultrasound and urology Plan Hyperlipidemia-holding home statin with rhabdomyolysis PAD-continue aspirin, holding statin. Has a history of occluded left tibial artery DVT prophylaxis- Lovenox Disposition-continued stay but can downgrade to med/surg status Admission and Anticipated Discharge Date Admission Date: June 11, 2024 Subjective Pt feels much better today. Reports "I was really out of it yesterday." He is eating all of his meals, moving his bowels. Denies pain anywhere except a little in his left shoulder from where he fell. Denies SOB. He walked in the halls today with PT. Tele with NSR, rates 70-80s Physical Exam Constitutional: WD/WN, vitals as above Neck: trachea midline, no thyromegaly Respiratory: normal respiratory effort, lungs clear to auscultation Cardiovascular: RRR, no murmur, no edema Chest (Breasts): Chest: normal inspection of chest Gastrointestinal (Abdomen): normal bowel sounds, soft, nontender, no hepatosplenomegaly Musculoskeletal: Extremities: extremities normal to inspection; no cyanosis and no clubbing Skin: Trauma: + evidence of skin trauma (Multiple abrasions on knees, ankles, left shoulder) and + contusion (Left forehead) Neurologic: moves all extremities and awake; no focal motor deficits Psychiatric: A+Ox3, euthymic affect Results & Data Results & Data Vital Signs (Past 12 Hours) Vital Signs Temp Pulse Pulse Resp BP BP Pulse Ox 06/13/24 16:33 36.4 C L 79 18 178/78 H 98 06/13/24 14:27 84 06/13/24 11:26 37.0 C 79 16 149/76 H 97 06/13/24 07:42 37.7 C H 74 18 155/73 H 96 06/13/24 07:21 72 O2 Del Method 06/13/24 16:33 Room Air 06/13/24 14:27 06/13/24 11:26 Room Air 06/13/24 07:42 Room Air 06/13/24 07:21 Laboratory Results CBC, CMP, CK PG Care Time/CCT Total # of Minutes Spent Total Time Spent with Patient: Total time spent is greater than 50% in coordination of care (as documented) at patient's floor/unit and/or counseling patient: Coding Level of Care Code 52346 SUB INP/OBS CARE 3/50MIN Diagnoses Fever R50.9 Rhabdomyolysis M62.82 Thrombocytopenia D69.6 Uncontrolled type 2 diabetes mellitus with insulin therapy E11.65; Z79.4 Fall [id number].XXXA Acquired hypothyroidism E03.9 Hypothyroidism type: acquired Chronic kidney disease, stage III (moderate) N18.30 Renal mass N28.89 (6) Hypothyroidism Hypothyroidism type: acquired Qualified Code(s): E03.9 - Hypothyroidism, unspecified
[2024-06-13] MEDS: LANTUS PER UNIT CHARGE SQ SCH (21:38)
[2024-06-14 07:06] LABS: Basophils # (auto) 0.02 K/uL (0.00-0.20); Basophils % (auto) 0.5 %; Eosinophils # (auto) 0.16 K/uL (0.00-0.50); Eosinophils % (auto) 4.4 %; Hemoglobin 11.9 g/dl (14.0-18.0); Immature Granulocytes # (auto) 0.02 K/uL (0.01-0.20); Immature Granulocytes % (auto) 0.5 %; Lymphocytes # (auto) 0.82 K/uL (1.20-3.40); Lymphocytes % (auto) 22.5 %; Mean Corpuscular Hemoglobin 30.3 pg (25.0-34.0); Mean Corpuscular Volume 89.1 fL (80.0-100.0); Mean Platelet Volume 10.4 fL (9.4-12.4); Monocytes # (auto) 0.48 K/uL (0.11-0.59); Monocytes % (auto) 13.2 %; Neutrophils # (auto) 2.14 K/uL (1.40-6.50); Neutrophils % (auto) 58.9 %; Platelet Count 82 K/uL (130-400); RDW Coefficient of Variation 12.1 % (11.5-14.5); RDW Standard Deviation 39.3 fL (36.4-46.3); Red Blood Count 3.93 M/uL (4.70-6.10); White Blood Count 3.64 K/ul (4.8-10.8)
[2024-06-14 07:30] LABS: Albumin Globulin Ratio 1.4 (0.9-2); Albumin Level 3.3 gm/dl (3.4-5.0); BUN Creatinine Ratio 19.7 (10-20); Bilirubin,Total 0.5 mg/dl (0.2-1.0); Calcium 8.2 mg/dl (8.6-10.3); Creatinine Clr Calc Pharmacy 47.5 ml/min; Est GFR (Non-African American) 55.3 ml/min; Globulin 2.3 gm/dl (2.5-4.0); Potassium 3.9 mmol/L (3.5-5.1); Total Protein 5.6 gm/dl (6.0-8.3)
--- NOTE | 2024-06-14 10:03 | Hospitalist Progress Note ---
Date of Service June 14, 2024 Assessment & Plan (1) Fever: Plan: Presents with subjective fevers and lightheadedness x 1 week at home which led to a fall and rhabdomyolysis His rhabdomyolysis is fairly mild and the fever is not likely from that (fever can occur in more severe rhabdomyolysis) He p/w leukopenia, thrombocytopenia, ongoing fevers, mildly elevated AST (from rhabdomyolysis vs Anaplasmosis), and no clear source of infection Unfortunately, blood cultures were not drawn prior to giving antibiotics due to the nationwide shortage of blood culture bottles, however he does not have any indwelling prosthetics or heart valves and would be lower risk for infective endocarditis. CT of chest abdomen pelvis without clear source of infection, no other symptoms other than fever and weakness. Urinalysis with 3+ blood but no RBCs likely from rhabdomyolysis Viral respiratory BioFire panel is all negative Anaplasmosis and babesiosis smears are negative but PCR is pending Lyme titer screen is negative No evidence of cellulitis or infected wounds Highly suspect tickborne illness, specifically anaplasmosis, or less likely ehrlichiosis (as is not as prevalent in this area). Do not suspect babesiosis as there is no evidence of hemolysis Started on doxycycline after admission Continues to improve-, fevers now completely resolved, strength improving, platelets jacques in the 70s, now increasing to 82. AST remains mildly elevated but is lower than previous Cont doxycycline 100 Mg IV twice daily and then convert to po to complete 10 day course after discharge Follow Anaplasma and Babesia PCR's, and continue to follow for clinical improvement Follow CBC, CMP in AM APAP prn fever (2) Rhabdomyolysis: Plan: Patient was down on the ground for approximately 12 hours prior to admission secondary to significant weakness from febrile illness. 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 Abnormal troponins probably from demand ischemia in the setting of strain from febrile illness and rhabdomyolysis-trended troponins and only minimally elevated at 36 Can now dc IVFs Continue to trend CK, CMP in the morning (3) Thrombocytopenia: Plan: Platelets jacques 72, likely due to Anaplasmosis, now improving to 82 Continue treating with doxycycline as above Okay to continue home aspirin given history of PAD, ok to continue Lovenox-would hold if platelets< 50k Monitor CBC (4) Uncontrolled type 2 diabetes mellitus with insulin therapy: Plan: Hemoglobin A1c uncontrolled at 8.7% Now better controlled with increased doses of insulin-continue basal and bolus insulin Holding home Maurilio (5) Fall: Plan: Weakness with multiple falls in the days leading to hospitalization secondary to acute illness PT/OT consults placed -recommending rehab but definitely is improving since admission and he prefers to not go unless he really has to Will continue to have him ambulate daily and be reevaluated by PT to see if s till needs rehab or could go home with home health (6) Hypothyroidism: Plan: TSH here is acceptable Continue home levothyroxine (7) Chronic kidney disease, stage III (moderate): Plan: Creatinine actually improved from baseline now at 1.2 and stable Avoid nephrotoxins, renally dose medications (8) Renal mass: Plan: Incidental finding of a left kidney lesion that is indeterminate and measures 1.5 cm Follow-up as an outpatient with renal ultrasound and urology Plan Hyperlipidemia-holding home statin with rhabdomyolysis PAD-continue aspirin, holding statin. Has a history of occluded left tibial artery DVT prophylaxis- Lovenox Disposition-continued stay but hopefully discharge tomorrow either to rehab vs home with home health based on PT re-evaluation Admission and Anticipated Discharge Date Admission Date: June 11, 2024 Anticipated date of discharge: 06/15/24 Subjective Feeling better, stronger, wants to get OOB and walk more. Is eating, moved bowels yesterday. Denies SOB, no pain anywhere Anxious to get home and does not want to go to rehab Physical Exam Constitutional: WD/WN, vitals as above Neck: trachea midline, no thyromegaly Respiratory: normal respiratory effort, lungs clear to auscultation Cardiovascular: RRR, no murmur, no edema Chest (Breasts): Chest: normal inspection of chest Gastrointestinal (Abdomen): normal bowel sounds, soft, nontender, no hepatosplenomegaly Musculoskeletal: Extremities: extremities normal to inspection; no cyanosis and no clubbing Skin: Trauma: + evidence of skin trauma (Multiple abrasions on knees, ankles, left shoulder) and + contusion (Left forehead) Neurologic: moves all extremities and awake; no focal motor deficits Psychiatric: A+Ox3, euthymic affect Results & Data Results & Data Vital Signs (Past 12 Hours) Vital Signs Temp Pulse Resp BP Pulse Ox O2 Del Method 06/14/24 07:28 37.1 C 74 18 167/74 H 94 Room Air Laboratory Results CBC, CMP, CK reviewed PG Care Time/CCT Total # of Minutes Spent Total Time Spent with Patient: Total time spent is greater than 50% in coordination of care (as documented) at patient's floor/unit and/or counseling patient: Coding Level of Care Code 60576 SUB INP/OBS CARE 2/35MIN Diagnoses Fever R50.9 Rhabdomyolysis M62.82 Thrombocytopenia D69.6 Uncontrolled type 2 diabetes mellitus with insulin therapy E11.65; Z79.4 Fall [id number] Acquired hypothyroidism E03.9 Hypothyroidism type: acquired Chronic kidney disease, stage III (moderate) N18.30 Renal mass N28.89 (6) Hypothyroidism Hypothyroidism type: acquired Qualified Code(s): E03.9 - Hypothyroidism, unspecified
[2024-06-14] MEDS: ENOXAPARIN INJ 40 MG/0.4 ML SYR SQ SCH (21:02)
[2024-06-15 07:16] VITALS: BP 111/64; PULSE 82; RESP 16; TEMP 98.2; O2SAT 96
[2024-06-15 07:28] LABS: Basophils # (auto) 0.03 K/uL (0.00-0.20); Basophils % (auto) 0.6 %; Eosinophils # (auto) 0.22 K/uL (0.00-0.50); Eosinophils % (auto) 4.3 %; Hematocrit (blood only) 35.9 % (42.0-52.0); Hemoglobin 12.2 g/dl (14.0-18.0); Immature Granulocytes # (auto) 0.01 K/uL (0.01-0.20); Immature Granulocytes % (auto) 0.2 %; Lymphocytes # (auto) 1.06 K/uL (1.20-3.40); Lymphocytes % (auto) 20.6 %; Mean Corpuscular Volume 88.4 fL (80.0-100.0); Mean Platelet Volume 10.3 fL (9.4-12.4); Monocytes # (auto) 0.43 K/uL (0.11-0.59); Monocytes % (auto) 8.4 %; Neutrophils # (auto) 3.39 K/uL (1.40-6.50); Neutrophils % (auto) 65.9 %; Platelet Count 120 K/uL (130-400); RDW Coefficient of Variation 12.3 % (11.5-14.5); RDW Standard Deviation 39.7 fL (36.4-46.3); Red Blood Count 4.06 M/uL (4.70-6.10); White Blood Count 5.14 K/ul (4.8-10.8)
[2024-06-15 07:52] LABS: Albumin Globulin Ratio 1.5 (0.9-2); Albumin Level 3.5 gm/dl (3.4-5.0); BUN Creatinine Ratio 22.4 (10-20); Bilirubin,Total 0.4 mg/dl (0.2-1.0); Calcium 8.5 mg/dl (8.6-10.3); Creatinine Clr Calc Pharmacy 49.9 ml/min; Est GFR (African American) 68.1 ml/min; Est GFR (Non-African American) 58.7 ml/min; Globulin 2.3 gm/dl (2.5-4.0); Magnesium 1.7 mg/dl (1.7-2.4); Potassium 3.7 mmol/L (3.5-5.1); Total Protein 5.8 gm/dl (6.0-8.3)
--- NOTE | 2024-06-15 08:47 | Discharge Summary ---
Discharge Summary Date of Service June 15, 2024 Principal Dx & Hospital Course #1 = Principal Diagnosis (1) Fever: Presents with subjective fevers and lightheadedness x 1 week at home which led to a fall and rhabdomyolysis His rhabdomyolysis is fairly mild and the fever is not likely from that (fever can occur in more severe rhabdomyolysis) He p/w leukopenia, thrombocytopenia, ongoing fevers, mildly elevated AST (from rhabdomyolysis vs Anaplasmosis), and no clear source of infection Unfortunately, blood cultures were not drawn prior to giving antibiotics due to the nationwide shortage of blood culture bottles, however he does not have any indwelling prosthetics or heart valves and would be lower risk for infective endocarditis. CT of chest abdomen pelvis without clear source of infection, no other symptoms other than fever and weakness. Urinalysis with 3+ blood but no RBCs likely from rhabdomyolysis Viral respiratory BioFire panel is all negative Anaplasmosis and babesiosis smears are negative but Anaplasmosis PCR returned POSITIVE on the day of discharge. Basesiosis PCR still pending Lyme titer screen is negative No evidence of cellulitis or infected wounds Highly suspected tickborne illness, specifically anaplasmosis, or less likely ehrlichiosis (as is not as prevalent in this area). Do not suspect babesiosis as there is no evidence of hemolysis Started on doxycycline after admission and had significant improvement within 24 hours Continues to improve-, fevers now completely resolved, strength improving, platelets jacques in the 70s, now increasing to 120. AST remains mildly elevated but is lower than previous Cont doxycycline 100 Mg po twice daily to complete 10 day course after discharge (2) Rhabdomyolysis: Patient was down on the ground for approximately 12 hours prior to admission secondary to significant weakness from febrile illness. 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 He refuses to use an assistive device but this was highly recommended for him (3) Thrombocytopenia: Platelets jacques 72, secondary to Anaplasmosis, now improving to 120 Continue treating with doxycycline as above Okay to continue home aspirin given history of PAD Monitor CBC as outpt (4) Uncontrolled type 2 diabetes mellitus with insulin therapy: Hemoglobin A1c uncontrolled at 8.7% treated with basal and bolus insulin Holding home Mounjaro but can resume on discharge, resume home insulin on discharge (5) Fall: Weakness with multiple falls in the days leading to hospitalization secondary to acute illness PT/OT consults placed -recommending rehab but definitely is improving since admission and he prefers to not go to rehab recommend assistive device at home and home health (6) Hypothyroidism: TSH here is acceptable Continue home levothyroxine (7) Chronic kidney disease, stage III (moderate): Creatinine actually improved from baseline now at 1.2 and stable Avoid nephrotoxins, renally dose medications (8) Renal mass: Incidental finding of a left kidney lesion that is indeterminate and measures 1.5 cm Follow-up as an outpatient with renal ultrasound and urology Plan Hyperlipidemia-held home statin with rhabdomyolysis, but can now resume PAD-continue aspirin, resume statin. Has a history of occluded left tibial artery DVT prophylaxis- Lovenox Disposition-dc to home with home health Notes For Next Care Provider Incidental finding of a left kidney lesion that is indeterminate and measures 1.5 [id number] as an outpatient with renal ultrasound and urology Check CBC, CMP in 1 week Medication Changes From Visit Added doxycycline 100mg po bid x 6 more days Admission HPI Per Admitting Provider Pleasant 83-year-old male who lives at home alone. He had a fall couple days ago with some difficulty getting up and fell again today was down for an extended time period, biggest exactly how long but appears to be at least a few hours. His neighbor/friend convinced him to come to the emergency department for further evaluation and treatment. In the emergency department the patient had multiple laboratory studies pertinent for CK total of 1600 as well as a troponin of 26.1. Platelet count suppressed at oh 120,000. Urinalysis was positive for blood was otherwise negative for infection COVID testing was negative lactic acid was elevated at 2.3. Patient had a plain film chest x-ray which was nonacute and a pelvis x-ray which was nonacute. The patient received some IV fluids and IV cefepime. He was noted to be febrile. He was noted to be tachypneic approximate 20 breaths/min. CT of the abdomen pelvis was ordered in the ER had yet to go to CT Will we are called to ask for admission. We ordered a stat D-dimer is over 1999. Of also added a CTA of the chest stat. Will do serial troponins. Will do a tickborne illness panel. Continue to hydrate. Await CT results to determine further antibiotic treatment. We will trend his troponins. As well as CK totals. Discharge Exam Constitutional WD/WN, vitals as above Neck trachea midline, no thyromegaly Respiratory normal respiratory effort, lungs clear to auscultation Cardiovascular RRR, no murmur, no edema Chest (Breasts) Chest: normal inspection of chest Gastrointestinal (Abdomen) normal bowel sounds, soft, nontender, no hepatosplenomegaly Musculoskeletal Extremities: extremities normal to inspection; no cyanosis and no clubbing Skin Trauma: + evidence of skin trauma (Multiple abrasions on knees, ankles, left shoulder) and + contusion (Left forehead) Neurologic moves all extremities and awake; no focal motor deficits Psychiatric A+Ox3, euthymic affect Discharge Plan Discharge Items Patient Disposition: Home - Home Health Services Reason For Visit: RHABDO Discharge Diagnosis: Anaplasmosis Rhabdomyolysis Fall Activity: As commented below Lifting: Gradually increase as tolerated Bathing: No limitations Exercise/Sports: Gradually increase as tolerated Exercise Comment: with rolling walker Weightbearing: Full weightbearing Non-emergency contact: Primary Care Provider Call non-emergency contact if: you have any medication questions, your symptoms worsen, you have a fever and your temperature is above 101 Follow-up/Referrals: Aurea Das CRNP [Primary Care Provider] - (Follow up within 1-2 weeks) Diet: Carb Consistent or DM2 Addtl Attending Provider Instructions: You were admitted after having a fall without being able to get up from profound weakness. This caused you to have compression of your muscles and breakdown of your muscle cells called rhabdomyolysis. This was treated with intravenous fluids and you had resolution. Your weakness was caused by fevers from an infection from a tick bite called Anaplasmosis. This was treated with antibiotics called doxycycline and you are now much improved. Please finish out the course of antibiotics for 6 more days. Physical therapy is recommending rehab placement for you due to some residual instability on your feet, but you have declined to go to rehab. It is HIGHLY RECOMMENDED that you use a cane or a walker to help maintain your balance when walking. You had an incidental finding of a left kidney lesion that is indeterminate and measures 1.5 cm You will need to follow-up as an outpatient with renal ultrasound and urology consultation. Your PCP can arrange this. Follow up with your PCP within 1-2 weeks. Pending Studies at Discharge: Yes (Babesiosis PCR) Stand-Alone Forms: My [facility] [address], Smoking Cessation Medications and DC Order Prescriptions: New doxycycline hyclate 100 mg tablet 100 mg PO BID Qty: 13 0RF Continued (DME) blood-glucose meter [OneTouch Ultra2 Meter] [facility] [place] See Rx Instructions .Route Qty: 1 0RF Rx Instructions: TEST BSG TWICE DAILY; DX CODE- E11.9 (DME) pen needle, diabetic 32 gauge x 5/32" needle See Rx Instructions .Route Qty: 200 3RF Rx Instructions: Use with Novolin injections BID. dx: E11.65 levothyroxine 112 mcg tablet 112 mcg PO DAILYBB Qty: 90 3RF (DME) blood sugar diagnostic Strip See Dose Instructions .ROUTE .MEDSUPPLY Qty: 300 3RF Dose Instruction: As directed Rx Instructions: test 3 times daily DX: E11.9 Novolin N FlexPen 100 unit/mL (3 mL) insulin pen 30 unit subcut BID MDD 70 Qty: 15 3RF aspirin [Adult Low Dose Aspirin] 81 mg tablet,delayed release (DR/EC) 81 mg PO DAILY Rx Instructions: Unable to verify OTC meds at this date/time. rosuvastatin 10 mg tablet 10 mg PO DAILY Qty: 90 3RF Hold Instructions: pt stopped (DME) lancets [OneTouch UltraSoft Lancets[place] [facility] [place] Dose Instructions .ROUTE .MEDSUPPLY Qty: 100 5RF Dose Instruction: As directed Rx Instructions: Test twice daily Mounjaro 5 mg/0.5 mL pen injector 5 mg subcut WK Discharge Orders: Discharge Order (Routine); Ordered 06/15/24 Ordered By: Sharon Dougherty/Other Patient Handouts: Managing Type 2 Diabetes Admission Data Admit Date/Time: 06/11/24 13:05 Attending Provider: Sharon Wing Admit Provider: Mono Hernández Primary Care Provider: Aurea Das Other Providers: Mono Hernández Other Interventions: Discharge Summary Assessment (RN) Last Done: 06/15/24 11:07 Hospital Stay Data Consultations 06/11/24 12:34 ED Decision to Admit Stat Diagnostic Imagining Performed 06/11/24 12:27 CT abd pelvis wo con Stat 06/11/24 12:55 CT angio chest PE protocol Stat Pending Results Patient Have Any Pending Studies at Discharge: Yes (Babesiosis PCR) Discharge Instructions Given to Patient (Per Discharging Provider) You were admitted after having a fall without being able to get up from profound weakness. This caused you to have compression of your muscles and breakdown of your muscle cells called rhabdomyolysis. This was treated with intravenous fluids and you had resolution. Your weakness was caused by fevers from an infection from a tick bite called Anaplasmosis. This was treated with antibiotics called doxycycline and you are now much improved. Please finish out the course of antibiotics for 6 more days. Physical therapy is recommending rehab placement for you due to some residual instability on your feet, but you have declined to go to rehab. It is HIGHLY RECOMMENDED that you use a cane or a walker to help maintain your balance when walking. You had an incidental finding of a left kidney lesion that is indeterminate and measures 1.5 cm You will need to follow-up as an outpatient with renal ultrasound and urology consultation. Your PCP can arrange this. Follow up with your PCP within 1-2 weeks. Total Time Total Time Spent Total Time Spent (In Minutes): 45 min Total Time Includes: Examination of the Patient, Discharge Planning, Medication Reconciliation and Communication With Other Providers (PT) Coding Level of Care Code 36977 INP/OBS DISCH >30 MIN Diagnoses Fever R50.9 Rhabdomyolysis M62.82 Thrombocytopenia D69.6 Uncontrolled type 2 diabetes mellitus with insulin therapy E11.65; Z79.4 Fall [id number].XXXA Acquired hypothyroidism E03.9 Hypothyroidism type: acquired Chronic kidney disease, stage III (moderate) N18.30 Renal mass N28.89
== END 2024-06-15 17:51 | disposition home health service (06) | DRG 868 ==
LOC: ED 10:04 → 2N 13:05 → SUATTDRO 13:05 → 2N 17:00 → 3N 06-13 18:05